=== PATIENT | female | born 1970 | race Caucasian/White ===

== ENCOUNTER 2020-02-18 16:36 | Outpatient (REF) | payer MEDICAID, SELFPAY | END 2020-02-18 16:37 | disposition home or self-care (01) | LOC: HO.LAB 16:36 | PROVIDERS: PCP Internal Medicine; Visit Provider Internal Medicine | DX: Z20.828 Contact with and (suspected) exposure to other viral communicable diseases (principal) | CPT/HCPCS: C9803; U0003 ==

== ENCOUNTER 2020-03-17 06:02 | Emergency (ER) | payer MEDICAID, SELFPAY ==
[2020-03-17 06:39] VITALS: BP 144/72; PULSE 68; RESP 15; TEMP 36.6; O2SAT 98; BMI 29.8
[2020-03-17 06:56] LABS: Glucose Urine UA NEG (NEG); Leukocyte Esterase Urine 1+ (NEG); Nitrite Urine NEG (NEG); Specific Gravity - Urine <= 1.005 (1.005-1.025); Urine Blood 2+ (NEG); Urine Ketones NEG (NEG); Urine Protein NEG (NEG-TRACE)
[2020-03-17 06:57] LABS: Appearance Urine HAZY; Color Urine STRAW
--- NOTE | 2020-03-17 07:06 | ED_ITS ---
HPI - Back Pain/Injury General Chief Complaint: Back Pain/Injury Stated Complaint: back pain Time Seen by Provider: 03/17/20 06:24 Source: patient Mode of arrival: ambulatory Limitations: no limitations History of Present Illness HPI Narrative: This is a 50-year-old female who presents with onset of right lower back discomfort and radiation into her right lower extremity without numbness/tingling / weakness. In addition, patient denies any nausea, vomiting, fever, chills, urinary pain/ burning /frequency, or diarrhea. Related Data Previous Rx's Medication Instructions Recorded ciprofloxacin HCl [Cipro] 500 mg PO Q12H 7 Days #14 tab 03/17/20 Allergies Allergy/AdvReac Type Severity Reaction Status Date / Time No Known Allergies Allergy Verified 03/17/20 06:34 [No Known Allergies*] Review of Systems Review of Systems: Pertinent positives and negatives as stated in HPI and 10 point review of systems is otherwise negative. PMFSH Past Medical History Source: nursing notes reviewed Medical History Anemia Hypothyroid Social History Social History Alcohol intake: never Smoking Status: Light tobacco smoker Use of substances other than those prescribed or required for medical reasons: No Advance Directives: No Physical Exam Vital Signs: Vital Signs: Last Vital Signs Temp 98 F 03/17/20 06:39 Pulse 68 03/17/20 06:39 Resp 15 03/17/20 06:39 BP 144/72 H 03/17/20 06:39 Pulse Ox 98 03/17/20 06:39 Body Mass Index 29.8 VITAL SIGNS: Reviewed. GENERAL: Well developed, well nourished, in no acute distress. HEAD: Normocephalic/atraumatic, EYES: PERRLA, EOMI intact without pain, no nystagmus/pallor/icterus noted EARS: Ext canals without abnormality, TMs non-bulging and non-erythematous NOSE: Nares patent bilateral OROPHARYNX: no oral lesions noted, posterior pharynx clear and non-erythematous without noted tonsillar enlargement/erythema/exudates NECK: Supple, no adenopathy LUNGS: Normal breath sounds. No adventitious sounds or accessory muscle use. SpO2<98> CARDIOVASCULAR: Regular rate and rhythm without noted murmurs, no JVD or lower extremity edema. ABDOMEN: Soft, non-tender, non-distended with bowel sounds. No rigidity. No guarding. No palpable masses or hernias noted MUSCULOSKELETAL: No tenderness, deformities, or effusions noted on gross inspection. EXTREMITIES: No cyanosis, clubbing or edema. SKIN: Inspection of the skin reveals no rashes, ulcerations, jaundice, pallor, or petechiae. NEUROLOGIC: Alert and oriented x 4. Strength and sensation to light touch were grossly intact x 4. Course Course Course Narrative: This is a 50-year-old female with history and clinical presentation most consistent with likely back strain or UTI. On review of urinalysis patient has a UTI and will receive initial antibiotics here and then be discharged to home with remaining course. MDM - Back Pain/Injury Lab Data Labs: Lab Results 03/17/20 Range/Units 06:48 Urine Color STRAW Urine Appearance HAZY Urine pH 6.0 (5.0-8.0) Ur Specific [place] <= 1.005 (1.005-1.025) Urine Protein NEG (NEG-TRACE) MG/DL Urine Glucose (UA) NEG (NEG) MG/DL Urine Ketones NEG (NEG) MG/DL Urine Blood 2+ H (NEG) Urine Nitrite NEG (NEG) Ur Leukocyte Esterase 1+ H (NEG) Discharge Plan Discharge Clinical Impression: UTI (urinary tract infection) Qualifiers: Urinary tract infection type: acute cystitis Hematuria presence: with hematuria Qualified Code(s): N30.01 - Acute cystitis with hematuria Patient Disposition: Home, Self-Care Instructions: Urinary Tract Infection in Women (ED) Additional Instructions: 1. Tylenol 1000 mg, orally, every 6 hours as needed for pain control. Do not exceed 4000 mg within 24 hours. 2. Ibuprofen 400 mg, orally with milk or food, every 6 hours as needed for pain control. 3. lidocaine patch, these are available [id number] at every [facility], apply to area of maximal tenderness as directed on the outside packaging. 4. increase fluid hydration especially with water. The patient and/or family acknowledge understanding of results (as applicable), diagnosis, treatment plan, need for follow up, and symptoms that should prompt a return to the emergency room. Prescriptions: New ciprofloxacin HCl [Cipro] 500 mg tablet 500 mg PO Q12H 7 Days Qty: 14 RF: 0 Referrals: Chrissie Khan MD [Primary Care Provider] - 2 days ( re-evaluation for UTI) Print Language: Luxembourger
[2020-03-17 07:07] LABS: RBC Urine 50-75 /HPF (0); Squamous Epithelial Cell Urine 1+ /LPF
[2020-03-17] MEDS: Lidocaine 4 % Patch ADH..PATCH 1 PATCH TRANSDERMA (07:10)
[2020-03-17] MEDS: Ketorolac Tromethamine 15 MG/ML VIAL IM (07:11)
[2020-03-17] MEDS: Acetaminophen 325 MG TABLET 975 MG PO (07:11)
== END 2020-03-17 07:35 | disposition home or self-care (01) ==
PROVIDERS: Emergency Provider Student in an Organized Health Care Education/Training Program; PCP Internal Medicine
DX: N30.01 Acute cystitis with hematuria (principal); F17.210 Nicotine dependence, cigarettes, uncomplicated
CPT/HCPCS: 81001; 87086; 87088; 87186; 96372; 99283; 99284; J1885

== ENCOUNTER → 2021-10-05 16:06 | Outpatient (BNVA) | payer MEDICAID, SELFPAY | PROVIDERS: PCP Internal Medicine; Referring Provider Internal Medicine; Visit Provider Nurse Practitioner | DX: Z01.818 Encounter for other preprocedural examination (principal); Z80.0 Family history of malignant neoplasm of digestive organs | CPT/HCPCS: 99202 ==

== ENCOUNTER 2022-05-23 08:24 | Outpatient (REF) | payer MEDICAID, SELFPAY ==
--- NOTE | ~2022-05-23 | MM_ITS ---
EXAMINATION: MM SCREENING DIGITAL BREAST TOMOSYNTHESIS, BILATERAL CLINICAL INFORMATION: Screening. Asymptomatic. The lifetime risk of breast cancer based on the Tyrer-Cuzick Model is 15.5%. COMPARISON: Mammography: June 16, 2019 and studies dating back to January 27, 2016 TECHNIQUE: Digital breast tomosynthesis is performed in both the craniocaudal and mediolateral oblique views along with computer-aided detection (CAD). Synthesized 2D images are generated from the tomosynthesis. FINDINGS: There are scattered areas of fibroglandular density (ACR BI-RADS breast composition Category b). There are no significant masses, abnormal calcifications, or other abnormalities. MM/MM tomosynthesis screening BI IMPRESSION: No significant changes from prior exam. ASSESSMENT: BI-RADS 1: Negative RECOMMENDATION: Routine annual mammography screening. This patient's information was entered into a reminder system with a target due date for their next mammogram.
== END 2022-05-23 08:25 | disposition home or self-care (01) ==
LOC: HO.MAMMO 08:24
PROVIDERS: PCP Internal Medicine; Visit Provider Internal Medicine
DX: Z12.31 Encounter for screening mammogram for malignant neoplasm of breast (principal)
CPT/HCPCS: 77063; 77067

== ENCOUNTER 2022-06-11 11:25 | Outpatient (REF) | payer MEDICAID, SELFPAY ==
[2022-06-14 00:54] LABS: HPV mRNA E6/E7 rflx Not Detected (Not Detected)
== END 2022-06-11 11:26 | disposition home or self-care (01) ==
LOC: HO.LNP 11:25
PROVIDERS: PCP Internal Medicine; Visit Provider Obstetrics & Gynecology
DX: Z01.419 Encounter for gynecological examination (general) (routine) without abnormal findings (principal); Z11.51 Encounter for screening for human papillomavirus (HPV); N93.9 Abnormal uterine and vaginal bleeding, unspecified
CPT/HCPCS: 0353U; 83001; 83002; 84443; 84702; 85027; 87624; 88142; 99202

== ENCOUNTER 2022-06-11 12:02 | Outpatient (REF) | payer MEDICAID, SELFPAY ==
[2022-06-11 12:54] LABS: Hematocrit 35.2 % (37.0-47.0); Hemoglobin 10.7 g/dl (12.0-16.0); Mean Corpuscular HGB Conc 30.4 g/dl (31.0-35.0); Mean Corpuscular Hemoglobin 22.2 pg (27.0-33.0); Mean Corpuscular Volume 72.9 fL (80.0-98.0); Mean Platelet Volume 10.4 fL (9.4-12.3); Platelet Count 305 X10*3/uL (160-400); Red Blood Count 4.83 X10*6/uL (4.20-5.50); Red Cell Distribution Width 15.9 % (11.0-16.0); White Blood Count 6.6 X10*3/uL (4.8-10.8)
[2022-06-11 13:38] LABS: HCG Quantitative 3 mIU/mL; TSH reflex Free T4 3.09 uIU/mL (0.32-4.0)
[2022-06-11 14:57] LABS: CT PCR NOT DETECTED (Not Detect.); NG PCR NOT DETECTED (Not Detect.)
[2022-06-12 17:28] LABS: Follicle Stimulating Hormone 77.2 mIU/mL; Lutenizing Hormone 41.3 mIU/mL
== END 2022-06-11 12:03 | disposition home or self-care (01) ==
LOC: HO.LAB 12:02
PROVIDERS: PCP Internal Medicine; Visit Provider Obstetrics & Gynecology
DX: Z11.3 Encounter for screening for infections with a predominantly sexual mode of transmission (principal); N93.9 Abnormal uterine and vaginal bleeding, unspecified
CPT/HCPCS: 0353U; 83001; 83002; 84443; 84702; 85027

== ENCOUNTER 2022-06-19 11:44 | Outpatient (REF) | payer MEDICAID, SELFPAY ==
[2022-06-19 13:58] LABS: CT PCR NOT DETECTED (Not Detect.); NG PCR NOT DETECTED (Not Detect.)
== END 2022-06-19 11:45 | disposition home or self-care (01) ==
LOC: HO.LAB 11:44
PROVIDERS: PCP Internal Medicine; Visit Provider Obstetrics & Gynecology
DX: Z01.419 Encounter for gynecological examination (general) (routine) without abnormal findings (principal)
CPT/HCPCS: 0353U

== ENCOUNTER 2022-07-02 11:04 | Outpatient (REF) | payer MEDICAID, SELFPAY ==
--- NOTE | ~2022-07-02 | US_ITS ---
EXAMINATION: US PELVIS CLINICAL INFORMATION: Abnormal uterine and vaginal bleeding. COMPARISON: None available. TECHNIQUE: Ultrasound of the pelvis is performed using both transabdominal and transvaginal transducers along with Doppler. Transvaginal imaging is performed due to inadequate visualization transabdominally. FINDINGS: Uterus: The uterus is anteverted and measures 10.4 x 4.8 x 5.6 cm. For a volume of 146 mL. The double wall endometrial thickness is 0.7 mm. Nabothian cysts are present in the cervix. Three (3) uterine fibroids are present which have increased in size since the prior study consisting of: * 2.3 x 2.2 x 2.9 cm (previous 1.5 x 1.4 x 0.9 cm) at the fundus on the right. * 1.5 x 1.3 x 1.5 cm (previously 1.3 x 1.2 x 1.0 cm) at the fundus on the right. * 0.5 x 0.6 x 0.5 cm in the mid uterine body not seen previously. Adnexa: Both ovaries are visualized. There is normal color flow to the adnexa. There is no ovarian torsion. There is a small amount of free pelvic fluid noted in the cul-de-sac. Right ovary measures 2.6 x 1.3 x 1.7 cm for a volume of 3.0 mL. Left ovary measures 2.5 x 1.6 x 2.3 cm for a volume of 4.8 mL. US/US pelvic and transvaginal IMPRESSION: Uterine fibroids have increased in size since the prior study.
== END 2022-07-02 11:05 | disposition home or self-care (01) ==
LOC: HO.US 11:04
PROVIDERS: PCP Internal Medicine; Visit Provider Obstetrics & Gynecology
DX: N93.9 Abnormal uterine and vaginal bleeding, unspecified (principal)
CPT/HCPCS: 76830; 76856

== ENCOUNTER 2022-07-23 09:05 | Day surgery (SDC) | payer MEDICAID, SELFPAY ==
[2022-07-19 13:38] VITALS: BMI 31.4
--- NOTE | 2022-07-23 10:11 | P.HPSUR_ITS ---
Pre-Procedural Eval Section A Date of Service: 07/23/22 The patient is an INPATIENT: No The History & Physical has been completed within 30 days and I have reviewed it.: No Section B Chief Complaint: Colon cancer screening, family history of colon ca Relevant Family History (Specify if Yes): Yes Relevant Social History: None Present Medications: see Short Stay Collaborative assessment Medical History: Significant History (Anemia Hypothyroid Pre-hypertension) History of Previous Operations: Relevant previous surgery/procedure and date(s) (Appendectomy) Allergies: Allergies Allergy/AdvReac Type Severity Reaction Status Date / Time No Known Allergies Allergy Verified 06/11/22 11:37 [No Known Allergies*] Review of Systems Sugical H&P ROS: Negative: Constitution, Cardiovascular, Respiratory and [place] rointestinal Exam Surgical H&P Exam: Normal: Heart, Normal: Lungs, Normal: Extremities and Normal: Abdomen Plan Diagnosis/Plan: Unchanged I have reviewed the history and physical and performed a pertinent physical examination on my patient. No changes have occurred unless specified. Time Spent With Patient Time: Total time managing care of this patient today ____ minutes.
[2022-07-23 10:14] VITALS: BMI 30.7
[2022-07-23 10:29] VITALS: BP 148/68; PULSE 66; RESP 16; TEMP 36.3; O2SAT 100
--- NOTE | 2022-07-23 10:33 | HO.ANESPROP2 ---
[facility] Active Problems Active Problems: All Active Problems (Updated 07/23/22 @ 10:13 by Gail Sanchez RN) Menorrhagia (Acute) Chronic low back pain (Acute) Hearing loss (Acute) Eczema (Acute) Insomnia (Acute) Impaired glucose tolerance (Acute) Colon cancer screening (Acute) Family history of colon cancer (Acute) Abnormal uterine bleeding (Acute) Past Medical History Medical History (Updated 07/23/22 @ 10:13 by Gail Sanchez RN) Anemia Appendicitis with abscess Hypothyroid Pre-hypertension Family History Family History Mother Ovarian cancer Diabetes HTN (hypertension) Father Colon cancer Paternal Uncle Colon cancer Paternal Aunt Breast cancer Paternal Aunt Breast cancer Paternal Aunt Breast cancer Family history of problems with anesthesia: No Surgical History History of Problems with Anesthesia: No Social History Social History Alcohol intake: never Patient Tobacco Use Status: Never used Tobacco Use of substances other than those prescribed or required for medical reasons: No Are you DNR?: No Advance Directives: No Advance Directives Information Provided: Yes Meds Allergies Allergy/AdvReac Type Severity Reaction Status Date / Time No Known Allergies Allergy Verified 06/11/22 11:37 [No Known Allergies*] Active Medications: Current Medications Lactated Ringer's (Lr) 1,000 mls @ 50 mls/hr IVCONT .Q20H [facility] Home Medications Medication Instructions Recorded Confirmed Last Taken Type ammonium lactate 12 % topical cream appl topical DAILY PRN 10/05/21 Unknown History ascorbic acid (vitamin C) 500 mg 500 mg PO BID 10/05/21 Unknown History tablet (Vitamin C) clotrimazole 1 % topical cream appl topical 10/05/21 Unknown History diphenhydramine HCl 25 mg capsule 25 - 50 mg PO BEDTIME PRN 10/05/21 Unknown History (Banophen) docusate sodium 100 mg capsule 100 mg PO BID PRN 10/05/21 Unknown History ferrous sulfate 325 mg (65 mg 325 mg PO BID 10/05/21 Unknown History iron) tablet,delayed release hydrochlorothiazide 12.5 mg tablet 12.5 mg PO DAILY 10/05/21 Unknown History ibuprofen 400 mg tablet 400 - 800 mg PO Q8-12H PRN pain 10/05/21 Unknown History levothyroxine 25 mcg tablet 25 mcg PO DAILY 10/05/21 07/23/22 07/23/22 History lidocaine 5 % topical patch 1 patch topical DAILY 10/05/21 Unknown History Exam Exam Date and Time: July 23, 2022 1033 Height,Weight and Vital Signs: Height 5 ft 6 in Weight 86.183 kg Last Vital Signs Temp 97.3 F 07/23/22 10:29 Pulse 66 07/23/22 10:29 Resp 16 07/23/22 10:29 BP 148/68 H 07/23/22 10:29 Pulse Ox 100 07/23/22 10:29 O2 Del Method Room Air 07/23/22 10:29 Airway Mallampati Class: II TM Dist: >3cm Neck ROM: Full Heart: rrr Lungs: cta Assessment and Plan Assessment Anesthesia Assessment: Anesthesia Plan Discussed and Chart Reviewed Final Anesthetic Review Family History of Problems with Anesthesia: No History of Problems with Anesthesia: No NPO: Yes ASA Class: II Final Preanesthetic Review: No Changes in Pt Med Stat, Meds/Allgs Chart Reviewed and Consent Obtained/Reviewed Patient Risk: Intermediate Procedure Risk: Intermediate Anesthetic Plan Anesthetic Plan: MAC: Disposition: Standard PACU
--- NOTE | 2022-07-23 10:34 | W.PM.OPN ---
Operative Note Operative Note Date of Service: 07/23/22 Narrative: COLONOSCOPY TILL CECUM WITH SNARE POLYPECTOMY Pre-op diagnosis: Colon cancer screening Post-op diagnosis:? Colon polyps, diverticulosis Endoscopist:? Janice Lee MD Anesthesia:?MAC Consent: Indications for the procedure and potential complications of bleeding, perforation, reaction to medications and missed diagnosis were discussed with the patient and informed consent was obtained. Instrument: Olympus PCF H 190 L variable stiffness pediatric colonoscope Monitoring: Vital signs and clinical assessment, intermittent blood pressure monitoring, continuous EKG monitoring, Pulse oximetry and Carbon Dioxide monitoring were done throughout the procedure. Please see anesthesia flowsheet. Colon withdrawl time was 16 minutes. Procedure: The patient was placed in the left lateral decubitis position and pre-procedure medications were administered. After a digital rectal examination of the ano-rectum, the video colonoscope was inserted into the rectum and advanced through the colon to the cecum. The colonoscope was slowly withdrawn in a retrograde panoramic fashion and the colon mucosa was carefully examined including a retroflexed view of the rectum. Findings and interventions are described below. Procedure Difficulty: Without difficulty Findings: Terminal Ileum: Not evaluated Cecum: Normal Ascending Colon: Normal Transverse Colon: Normal Descending Colon: Moderate diverticulosis Sigmoid Colon: A 15 to 18 mm sessile polyp at 30 cm - removed with a hot snare. Moderate diverticulosis Rectum: A 10-12 mm sessile polyp - removed with a hot snare Ano-rectum: Normal Colon preparation: Excellent Impression and Post Procedure Diagnosis: Colonoscopy Findings: Two medium-sized polyps removed Moderate diverticulosis seen in the left colon Plan: Await pathology results Patient has an appointment on 08/08/22 in the GI Clinic with Apryl Greene NP. Repeat Colonoscopy interval based on path results - in 3-5 years if polyps are adenomatous and 10 years if polyps are hyperplastic. Above findings were reviewed with the patient and colon polyps and diverticulosis handouts were given in the discharge area
[2022-07-23] MEDS: Lactated Ringers 1,000 ML 50 ML IVCONT ×2 (10:37→10:38)
[2022-07-23 10:58] LABS: UPreg QC Valid YES; Urine Pregnancy NEGATIVE (NEGATIVE)
[2022-07-23 11:33] VITALS: BP 109/55; PULSE 61; RESP 16; TEMP 36.1; O2SAT 98
[2022-07-23 11:48] VITALS: BP 123/58; PULSE 60; RESP 16; TEMP 36.1; O2SAT 100
== END 2022-07-23 12:51 | disposition home or self-care (01) ==
PROVIDERS: Anesthesiology; PCP Internal Medicine; Visit Provider Internal Medicine Gastroenterology
PROC: 0DJD8ZZ Inspection of Lower Intestinal Tract, Via Natural or Artificial Opening Endoscopic (ICD-10-PCS; CPT 45378; principal; 2022-07-23 10:20)
DX: Z12.11 Encounter for screening for malignant neoplasm of colon (principal); D12.5 Benign neoplasm of sigmoid colon; D12.8 Benign neoplasm of rectum; K57.30 Diverticulosis of large intestine without perforation or abscess without bleeding; Z80.0 Family history of malignant neoplasm of digestive organs; D50.0 Iron deficiency anemia secondary to blood loss (chronic)
CPT/HCPCS: 45385; 81025; 88305

== ENCOUNTER 2022-07-25 09:55 | Outpatient (REF) | payer MEDICAID, SELFPAY | END 2022-07-25 09:56 | disposition home or self-care (01) | LOC: HO.LNP 09:55 | PROVIDERS: Visit Provider Obstetrics & Gynecology | DX: N93.9 Abnormal uterine and vaginal bleeding, unspecified (principal); Z32.02 Encounter for pregnancy test, result negative | CPT/HCPCS: 58100; 81025; 88305 ==

== ENCOUNTER → 2022-08-08 09:05 | Outpatient (BNVA) | payer MEDICAID, SELFPAY | PROVIDERS: Visit Provider Nurse Practitioner | DX: D12.6 Benign neoplasm of colon, unspecified (principal); Z80.0 Family history of malignant neoplasm of digestive organs | CPT/HCPCS: 99212 ==

== ENCOUNTER → 2022-08-22 11:50 | Outpatient (BNVA) | payer MEDICAID, SELFPAY | PROVIDERS: PCP Internal Medicine; Visit Provider Obstetrics & Gynecology | DX: N93.9 Abnormal uterine and vaginal bleeding, unspecified (principal); D25.9 Leiomyoma of uterus, unspecified | CPT/HCPCS: 99212 ==

== ENCOUNTER 2022-12-18 07:41 | Outpatient (AMB) | payer MEDICAID, SELFPAY ==
[2022-12-18 07:42] VITALS: BP 122/70; BMI 31.5
--- NOTE | 2022-12-18 07:42 | MHC.OFFVIS ---
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 The patient has been taking Provera cyclicly 10 mg p.o. q.d. day 15-24, her menstrual cycles are regular and light, she is requesting a refill [facility] Medical History Anemia Appendicitis with abscess Hypothyroid Pre-hypertension Family History Mother Ovarian cancer Diabetes HTN (hypertension) Father Colon cancer Paternal Uncle Colon cancer Paternal Aunt Breast cancer Paternal Aunt Breast cancer Paternal Aunt Breast cancer Social History Alcohol intake: never Patient Tobacco Use Status: Never used Tobacco Review of Systems Const All systems reviewed & are unremarkable except as noted in HPI and below Reports as per HPI and Reports no additional complaints GI Reports no additional complaints Reports no additional complaints Physical Exam Vital Signs: Last Vital Signs BP 122/70 12/18/22 07:42 BMI result Body Mass Index 31.5 Assessment & Plan Assessment & Plan (1) Abnormal uterine bleeding: Code(s): N93.9 - Abnormal uterine and vaginal bleeding, unspecified Plan: Will send a refill prescription for Provera 10 mg p.o. q.d. day 15-24 cyclically, instructions given the patient to call in case of abnormal bleeding, pelvic pain and to schedule a follow-up appointment in 6 months. All questions answered, the patient verbalized understanding and agreed with the plan. Medications: Refilled medroxyprogesterone (Provera) start Provera 1 tablet daily from day 15-24 cyclically every months, day 1 being 1st day of menses 10 mg PO DAILY 30 tabs 3RF 10 days Coding Level of Care Code Est Pt Level 3 (73321) Diagnoses Abnormal uterine bleeding N93.9
== END 2022-12-18 07:50 | disposition home or self-care (01) ==
LOC: HO.HWS 07:41
PROVIDERS: PCP Internal Medicine; Visit Provider Obstetrics & Gynecology
DX: N93.9 Abnormal uterine and vaginal bleeding, unspecified (principal)
CPT/HCPCS: 99213

== ENCOUNTER → 2022-12-18 07:41 | Outpatient (BNVA) | payer MEDICAID, SELFPAY | PROVIDERS: PCP Internal Medicine; Visit Provider Obstetrics & Gynecology | DX: N93.9 Abnormal uterine and vaginal bleeding, unspecified (principal) | CPT/HCPCS: 99212 ==

== ENCOUNTER 2023-05-07 10:37 | Outpatient (REF) | payer MEDICAID, SELFPAY ==
[2023-05-07 11:35] LABS: MANUAL DIFF FLAG NO
[2023-05-07 11:53] LABS: Basophils Percent Auto 0.5 % (0-2); Eosinophils Absolute Auto 0.3 X10*3/uL (0.0-0.4); Eosinophils Percent Auto 5.2 % (0-4); Hemoglobin 13.2 g/dl (12.0-16.0); Imm Gran Abs Auto 0.01 X10*3/uL (0.00-0.03); Imm Gran Pct Auto 0.2 % (0.0-0.4); Lymphocytes Absolute Auto 1.7 X10*3/uL (1.2-4.9); Lymphocytes Percent Auto 27.2 % (20-40); Mean Corpuscular HGB Conc 32.2 g/dl (31.0-35.0); Mean Corpuscular Hemoglobin 25.6 pg (27.0-33.0); Mean Corpuscular Volume 79.6 fL (80.0-98.0); Mean Platelet Volume 10.6 fL (9.4-12.3); Monocytes Absolute Auto 0.5 X10*3/uL (0.1-1.2); Monocytes Percent Auto 8.3 % (2-11); Neutrophils Absolute Auto 3.8 x10*3/uL (2.0-8.3); Neutrophils Percent Auto 58.6 % (45-73); Platelet Count 317 X10*3/uL (160-400); Red Blood Count 5.15 X10*6/uL (4.20-5.50); Red Cell Distribution Width 14.3 % (11.0-16.0); White Blood Count 6.4 X10*3/uL (4.8-10.8)
[2023-05-07 13:32] LABS: Anion Gap 12 (12-20); Blood Urea Nitrogen 14 mg/dL (9-16); Calcium 9.6 mg/dL (8.4-10.2); Carbon Dioxide 28 mmol/L (22-29); Chloride 107 mmol/L (96-108); Cholesterol 159 mg/dL (<200); Estimated Glomerular Filt Rate > 60; Ferritin 33 ng/mL (10-250); Glucose Random 113 mg/dL (60-115); HDL Cholesterol 43 mg/dL (>40); LDL Cholesterol Calculated 102 mg/dL (<100); Potassium 3.9 mmol/L (3.3-5.1); Sodium 143 mmol/L (135-145); TSH reflex Free T4 2.64 uIU/mL (0.32-4.0); Triglycerides 74 mg/dL (<150); Vitamin D 25-OH Total 24.9 ng/mL (>30)
[2023-05-07 14:59] LABS: Reflex LDLD? No
== END 2023-05-07 10:38 | disposition home or self-care (01) ==
LOC: HO.HHCL 10:37
PROVIDERS: Visit Provider Internal Medicine
DX: N92.0 Excessive and frequent menstruation with regular cycle (principal); D50.0 Iron deficiency anemia secondary to blood loss (chronic)
CPT/HCPCS: 36415; 80048; 80061; 82306; 82728; 84443; 85025

== ENCOUNTER → 2023-05-31 08:00 | Outpatient (BNV) | payer MEDICAID, SELFPAY | PROVIDERS: PCP Internal Medicine; Visit Provider Radiology Diagnostic Radiology | DX: Z12.31 Encounter for screening mammogram for malignant neoplasm of breast (principal) | CPT/HCPCS: 77063; 77067 ==

== ENCOUNTER 2023-05-31 08:03 | Outpatient (REF) | payer MEDICAID, SELFPAY | END 2023-05-31 08:04 | disposition home or self-care (01) | LOC: HO.MAMMO 08:03 | PROVIDERS: PCP Internal Medicine; Visit Provider Internal Medicine | DX: Z12.31 Encounter for screening mammogram for malignant neoplasm of breast (principal) | CPT/HCPCS: 77063; 77067 ==

== ENCOUNTER 2023-09-17 11:05 | Outpatient (AMB) | payer MEDICAID, SELFPAY ==
--- NOTE | 2023-09-17 11:11 | MHC.OFFVIS ---
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 Complaining of right sided pelvic pain started yesterday on an off, no associated vaginal bleeding discharge, no fever or chills, no nausea or vomiting. On Provera 10 mg p.o. q.d. day 15-24 cyclicly, she is having irregular menstrual cycles Last Pap/HPV was negative in 06/07 Last Mammogram was BI-RADS 1 in 06/08 Last Colonoscopy was done in 08/05, the recommendation was to repeat in 5 years [facility] Medical History Appendicitis with abscess Pre-hypertension Anemia Hypothyroid Family History Mother Ovarian cancer Diabetes HTN (hypertension) Father Colon cancer Paternal Uncle Colon cancer Paternal Aunt Breast cancer Paternal Aunt Breast cancer Paternal Aunt Breast cancer Social History Household Members: Significant Other Housing: House Alcohol intake: current Alcohol intake frequency: holidays/special occasions only Patient Tobacco Use Status: Never used Tobacco Current occupational status: employed 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 Sexually active: Yes Sexual orientation: Straight/Heterosexual Gender identity: Female Female Reproductive History Menstrual Menopause type: natural Total pregnancies: 3 Full term: 2 Number of Living Children: 2 Ab spontaneous: 1 Date of last pap smear: 06/11/22 Date of Mammogram: 05/31/23 Review of Systems Const All systems reviewed & are unremarkable except as noted in HPI and below Card Reports as per HPI Resp Reports as per HPI GI Reports as per HPI and Reports no additional complaints Reports as per HPI Physical Exam Vital Signs: Last Vital Signs BP 126/74 09/17/23 11:12 BMI result Body Mass Index 31.3 Const General: cooperative, healthy appearing and comfortable Chest Chest palpation & inspection: normal inspection of the chest and normal palpation of entire chest wall Breast/axilla inspection: normal inspection of the breasts and normal inspection of the axillae Breast/axilla palpation: normal palpation of the breasts, normal palpation of the axillae and no axillary lymphadenopathy Resp Effort & Inspection: normal respiratory effort Auscultation: clear to auscultation bilaterally Percussion: percussion normal Cardio Palpation: normal PMI Rate: regular rate Rhythm: regular rhythm Heart sounds: no murmurs and no rubs Peripheral pulses: Peripheral pulses 2+ throughout GI Inspection: Yes normal to inspection Palpation (GI): Soft to palpation, nontender, no guarding, not rigid and No hepatosplenomegaly present Percussion: Yes normal to percussion Auscultation: normal bowel sounds Rectal Exam - Female: deferred General: Yes bladder normal to palpation External Female Exam: No lesion Speculum Exam - Vagina: normal appearance of the vagina, normal palpation, normal vaginal discharge and not erythematous Speculum Exam - Cervix: normal appearance of the cervix and normal palpation Bimanual exam- vagina & uterus: normal bimanual exam, normal palpation, uterine size normal, bladder normal to palpation, consistency normal and normal palpation Bimanual Exam- Adnexa, other: normal adnexae, no masses and no tenderness Assessment & Plan Assessment & Plan (1) Well woman exam: Code(s): Z01.419 - Encounter for gynecological examination (general) (routine) without abnormal findings Category: Medical Plan: Co testing not indicated this year. Counseled the patient about the recommended dietary allowance of 1200 mg of Calcium & 600 IU of vitamin D. Instructions given the patient to schedule next screening Mammogram in 06/09. The patient was instructed to perform monthly self-breast exams and schedule annual exam in a year. Prescription for Provera 10 mg p.o. q.d. day 15-24 cyclically was refilled, instructions given the patient to discontinue it whenever she stops having her menstrual cycle. All questions answered and the patient verbalized understanding. (2) Pelvic pain: Code(s): R10.2 - Pelvic and perineal pain Category: Medical Plan: Urine test done in the office was negative. GC and chlamydia taken and pelvic ultrasound ordered. Discussed with the patient the differential diagnosis of pelvic pain including but not limited to adnexal, uterine masses, pelvic infections (PID), GI the (Irritable bowel syndrome, diverticulitis, others), musculoskeletal, myofascial pain abdominal wall , adhesions, endometriosis, psychological and others causes. Will check results and treat accordingly. All questions answered, the patient verbalized understanding. Instructed the patient to schedule follow-up appointment in 2 weeks (3) Microscopic hematuria: Code(s): R31.29 - Other microscopic hematuria Category: Medical Plan: Urine dip showed microscopic hematuria, urine culture sent. Will repeat urine dip in 2 weeks. Discussed with the patient the possible causes of microscopic hematuria including but not limited to: interstitial cystitis, polyps, stones, masses, urethral inflammatory processes and others. If Urine Culture is negative and repeat urine dip in 2 weeks shows persistent microscopic hematuria, will proceed with CT abdomen/pelvis and urology referral. Instructions given the patient to schedule a 2 week urine dip follow-up appointment. All questions answered and the patient verbalized understanding. Orders: Orders US pelvic and transvaginal Today R10.2 - Pelvic and perineal pain Medications: Refilled medroxyprogesterone (Provera) start Provera 1 tablet daily from day 15-24 cyclically every months, day 1 being 1st day of menses 10 mg PO DAILY 10 days 30 tabs 3RF Coding Level of Care Code Est Pt Prev Care 40-64y(39121) Diagnoses Well woman exam Z01.419 Pelvic pain R10.2 Microscopic hematuria R31.29
[2023-09-17 11:12] VITALS: BP 126/74; BMI 31.3
== END 2023-09-17 12:03 | disposition home or self-care (01) ==
LOC: HO.HWS 11:05
PROVIDERS: PCP Internal Medicine; Referring Provider Internal Medicine; Visit Provider Obstetrics & Gynecology
DX: Z01.419 Encounter for gynecological examination (general) (routine) without abnormal findings (principal); R10.2 Pelvic and perineal pain; R31.29 Other microscopic hematuria; Z32.02 Encounter for pregnancy test, result negative
CPT/HCPCS: 99396

== ENCOUNTER 2023-09-17 11:05 | Outpatient (REF) | payer MEDICAID, SELFPAY ==
[2023-09-17 15:57] LABS: CT PCR NOT DETECTED (Not Detect.); NG PCR NOT DETECTED (Not Detect.)
== END 2023-09-17 11:06 | disposition home or self-care (01) ==
LOC: HO.LNP 11:05
PROVIDERS: PCP Internal Medicine; Visit Provider Obstetrics & Gynecology
DX: Z01.419 Encounter for gynecological examination (general) (routine) without abnormal findings (principal); R31.29 Other microscopic hematuria; R10.2 Pelvic and perineal pain; Z79.899 Other long term (current) drug therapy
CPT/HCPCS: 0353U; 81002; 81025; 87086; 99396

== ENCOUNTER 2023-10-01 11:03 | Outpatient (REF) | payer MEDICAID, SELFPAY ==
--- NOTE | ~2023-10-01 | US_ITS ---
EXAMINATION: US PELVIS CLINICAL INFORMATION: Pelvic and perineal pain. COMPARISON: Pelvic ultrasound 07/02/2022. TECHNIQUE: Ultrasound of the pelvis is performed using both transabdominal and transvaginal transducers along with color Doppler. Transvaginal imaging is performed due to inadequate visualization transabdominally. FINDINGS: Uterus: The uterus is anteverted and measures 9.6 x 5.4 x 5.4 cm. There are 2 visible uterine fibroids measuring up to 2.2 cm, stable to slightly decreased in size from prior. The endometrial stripe measures 6 mm. Adnexa: The right ovary measures 3.0 x 1.6 x 1.0 cm. The left ovary measures 3.0 x 1.1 x 1.1 cm. The ovaries appear normal. US/US pelvic and transvaginal IMPRESSION: Stable to slightly decreased uterine fibroids.
== END 2023-10-01 11:04 | disposition home or self-care (01) ==
LOC: HO.US 11:03
PROVIDERS: PCP Internal Medicine; Visit Provider Obstetrics & Gynecology
DX: R10.2 Pelvic and perineal pain (principal)
CPT/HCPCS: 76830; 76856

== ENCOUNTER 2023-11-21 15:07 | Outpatient (REF) | payer MEDICAID, SELFPAY | END 2023-11-21 15:08 | disposition home or self-care (01) | LOC: HO.LNP 15:07 | PROVIDERS: PCP Internal Medicine; Visit Provider Obstetrics & Gynecology | DX: N93.9 Abnormal uterine and vaginal bleeding, unspecified (principal); D25.9 Leiomyoma of uterus, unspecified | CPT/HCPCS: 36415; 58100; 83001; 83002; 84146; 84443; 84702; 85027; 87491; 87591; 88305; 99212 ==

== ENCOUNTER 2023-11-21 15:07 | Outpatient (AMB) | payer MEDICAID, SELFPAY ==
--- NOTE | 2023-11-21 15:13 | MHC.OFFVIS ---
Vital Signs 11/21/23 15:14 Height 5 ft 6 in Weight 191 lb 12.835 oz BMI 31.0 Intake Visit Reasons: US follow up/urine dip/DO NOT RS Pit Furnace Melter Required: Yes Pit Furnace Melter Language: Metal Crafts Teacher Services: Pit Furnace Melter Present (in person) Pit Furnace Melter Name: Sarah SYED Information Interpreted: non-clinical & clinical Accompanied by: Self / Same As Patient Allergies No Known Allergies [No Known Allergies*] Allergy (Verified 11/21/23 15:15) Is last menstrual period known: Yes Last menstrual period: 10/21/23 HPI Comments Details: Presenting for ultrasound follow-up done in 10/06 showed the following: Uterus: The uterus is anteverted and measures 9.6 x 5.4 x 5.4 cm. There are 2 visible uterine fibroids measuring up to 2.2 cm, stable to slightly decreased in size from prior. The endometrial stripe measures 6 mm. Adnexa: The right ovary measures 3.0 x 1.6 x 1.0 cm. The left ovary measures 3.0 x 1.1 x 1.1 cm. The ovaries appear normal. The patient has been having irregular menstrual cycle on cyclic Provera 10 mg p.o. q.d. day 15- Last co testing was in 06/07 was negative last mammogram was BI-RADS 1 in 06/08 [facility] Medical History Appendicitis with abscess Pre-hypertension Anemia Hypothyroid Family History Mother Ovarian cancer Diabetes HTN (hypertension) Father Colon cancer Paternal Uncle Colon cancer Paternal Aunt Breast cancer Paternal Aunt Breast cancer Paternal Aunt Breast cancer Social History Household Members: Significant Other Housing: House Alcohol intake: current Alcohol intake frequency: holidays/special occasions only Patient Tobacco Use Status: Never used Tobacco Current occupational status: employed 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 Sexual orientation: Straight/Heterosexual Gender identity: Female Female Reproductive History Menstrual Date of last menstrual period: 10/21/23 Review of Systems Const All systems reviewed & are unremarkable except as noted in HPI and below Reports as per HPI and Reports no additional complaints GI Reports no additional complaints Reports no additional complaints Physical Exam Vital Signs: BMI result Body Mass Index 31.0 Office Procedures Endometrial Biopsy Details: The patient was counseled regarding the indication and benefits of endometrial sampling to rule out endometrial pathology including not limited to endometrial hyperplasia or endometrial cancer and others; The alternatives (Either do nothing vs. hysteroscopy D&C) & the risks were discussed with the patient including but not limited: pain, uterine perforation, bleeding, infection, possible injury to bladder, bowel, ureter, possible need for blood transfusion with all its possible risks. The patient verbalized understanding all questions answered and signed consent. Urine test done in the office was negative The patient was placed into the dorsal lithotomy position; a speculum was inserted in the vagina. Using aseptic technique for the procedure, the cervix was cleansed with Betadine. The anterior lip of the cervix was grasped with a single tooth tenaculum. The uterus was sounded to 7 cm with a 4 mm Pipelle was used. Tissues samples were obtained and placed in formalin, in a patient labeled container and sent to the pathology department. At the end of the procedure, there was minimal bleeding noted The patient tolerated the procedure well and was discharged in good condition with the following instructions: Nothing in the vagina until the bleeding stops. No sex until the bleeding stops, to call if any of the following occurs: fever (>100.4), flu-like symptoms, abdominal pain, heavy bleeding, four smelling vaginal discharge. The patient was instructed to schedule a Follow up appointment in 2 weeks to discuss pathology results of the biopsy and treatment options. This note was generated with a voice recognition program. Some errors may have been overlooked during the review of this note. Sometimes these errors may affect the content or meaning of a given sentence. 13432-[id number] Biopsy Assessment & Plan Assessment & Plan (1) Uterine myoma: Code(s): D25.9 - Leiomyoma of uterus, unspecified Category: Medical Plan: Discussed with the patient the findings on pelvic ultrasound & the risk of myosarcoma; discussed with the patient the options of treatment including expectant management versus hysterectomy; the pros and cons, risks benefits of each approach were discussed with the patient including the fact that in cases of myosarcoma, surgical treatment can lead to early diagnosis and positively affects the prognosis; after further discussion, the patient decided to proceed with expectant management. Will repeat pelvic ultrasound periodically. Instructions given to patient to call in case any of the following occurs: pressure symptoms, abnormal uterine bleeding, pelvic pain; and to schedule a 12 months pelvic ultrasound and a follow-up appointment . All questions answered, the patient verbalized understanding and agreed with the plan . (2) Abnormal uterine bleeding: Code(s): N93.9 - Abnormal uterine and vaginal bleeding, unspecified Category: Medical Plan: GC and chlamydia taken CBC, TSH, prolactin, HCG, FSH/LH ordered. Discussed with the patient the different causes of abnormal bleeding including thyroid disorders, uterine and ovarian pathology, endometrial hyperplasia, carcinoma and other potential causes. Discussed with the patient the work up including CBC (to r/o anemia), TSH, prolactin, pelvic Ultrasound, endometrial biopsy to r/o endometrial pathology. EMB done, see procedure note. All questions answered, the patient verbalized understanding Orders: Orders AMB Endometrial Biopsy Today N93.9 - Abnormal uterine and vaginal bleeding, unspecified Lutenizing Hormone Today N93.9 - Abnormal uterine and vaginal bleeding, unspecified Follicle Stimulating Hormone Today N93.9 - Abnormal uterine and vaginal bleeding, unspecified Complete Blood Count no Diff Today N93.9 - Abnormal uterine and vaginal bleeding, unspecified TSH reflex Free T4 Today N93.9 - Abnormal uterine and vaginal bleeding, unspecified HCG Quantitative Today N93.9 - Abnormal uterine and vaginal bleeding, unspecified Prolactin Today N93.9 - Abnormal uterine and vaginal bleeding, unspecified US pelvic and transvaginal 1 Year D25.9 - Leiomyoma of uterus, unspecified Coding Level of Care Code Est Pt Level 3 (25247) Procedure Only Diagnoses Uterine myoma D25.9 Abnormal uterine bleeding N93.9 CPT Codes Endometrial Biopsy - CPT: 13872-Zysirgjrygw Biopsy ([id number])
[2023-11-21 15:14] VITALS: BMI 31.0
== END 2023-11-21 15:37 | disposition home or self-care (01) ==
LOC: HO.HWS 15:07
PROVIDERS: PCP Internal Medicine; Referring Provider Internal Medicine; Visit Provider Obstetrics & Gynecology
DX: N93.9 Abnormal uterine and vaginal bleeding, unspecified (principal); D25.9 Leiomyoma of uterus, unspecified
CPT/HCPCS: 58100; 99213

== ENCOUNTER 2023-11-21 15:47 | Outpatient (REF) | payer MEDICAID, SELFPAY ==
[2023-11-21 17:17] LABS: Hematocrit 39.9 % (37.0-47.0); Hemoglobin 13.3 g/dl (12.0-16.0); Mean Corpuscular HGB Conc 33.3 g/dl (31.0-35.0); Mean Corpuscular Hemoglobin 27.5 pg (27.0-33.0); Mean Corpuscular Volume 82.4 fL (80.0-98.0); Mean Platelet Volume 10.8 fL (9.4-12.3); Platelet Count 280 X10*3/uL (160-400); Red Blood Count 4.84 X10*6/uL (4.20-5.50); Red Cell Distribution Width 13.1 % (11.0-16.0); White Blood Count 7.1 X10*3/uL (4.8-10.8)
[2023-11-21 17:55] LABS: HCG Quantitative 3 mIU/mL; TSH reflex Free T4 2.02 uIU/mL (0.32-4.0)
[2023-11-22 15:12] LABS: CT PCR NOT DETECTED (Not Detect.); NG PCR NOT DETECTED (Not Detect.)
[2023-11-23 00:59] LABS: Follicle Stimulating Hormone 73.9 mIU/mL; Lutenizing Hormone 36.3 mIU/mL; Prolactin 7.4 ng/mL
== END 2023-11-21 15:48 | disposition home or self-care (01) ==
LOC: HO.LAB 15:47
PROVIDERS: PCP Internal Medicine; Visit Provider Obstetrics & Gynecology
DX: N93.9 Abnormal uterine and vaginal bleeding, unspecified (principal); R10.2 Pelvic and perineal pain
CPT/HCPCS: 36415; 83001; 83002; 84146; 84443; 84702; 85027; 87491; 87591

== ENCOUNTER 2023-11-22 13:38 | Outpatient (REF) | payer MEDICAID, SELFPAY | END 2023-11-22 13:39 | disposition home or self-care (01) | LOC: HO.LNP 13:38 | PROVIDERS: Visit Provider Obstetrics & Gynecology | DX: Z13.89 Encounter for screening for other disorder (principal) ==

== ENCOUNTER 2023-11-28 07:40 | Outpatient (AMB) | payer MEDICAID, SELFPAY ==
--- NOTE | 2023-11-28 07:45 | MHC.OFFVIS ---
Vital Signs 11/28/23 07:46 Height 5 ft 6 in Weight 191 lb 12.835 oz BMI 31.0 Intake Visit Reasons: pre op Staff Command And Control Officer Required: Yes Staff Command And Control Officer Language: Yarn Mercerizer Operator Services: Staff Command And Control Officer Present (in person) Staff Command And Control Officer Name: Sarah SYED Information Interpreted: non-clinical & clinical Gate Person: Gate Person Present Accompanied by: Self / Same As Patient Allergies No Known Allergies [No Known Allergies*] Allergy (Verified 11/28/23 07:46) Is last menstrual period known: Yes Last menstrual period: 02/11/20 Post menopausal: Yes Patient : No Do you need a note to return to daycare/school/sports/work: Yes (for surgery on saturday) HPI Comments Details: The patient is presenting after endometrial biopsy. The patient has no complaints, no vaginal bleeding, no feverishness chills or abdominal pain. The endometrial biopsy pathology report showed the following: Superficial fragments of benign proliferative endometrium and fragments of benign endometrial polyp; no atypia or carcinoma. 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 Sexual orientation: Straight/Heterosexual Gender identity: Female Female Reproductive History Menstrual Date of last menstrual period: 02/11/20 Total pregnancies: 2 Full term: 2 Review of Systems Card Reports as per HPI and Reports no additional complaints Resp Reports as per HPI and Reports no additional complaints GI Reports as per HPI and Reports no additional complaints Reports as per HPI Physical Exam Vital Signs: BMI result Body Mass Index 31.0 Const General: cooperative, healthy appearing and comfortable Resp Effort & Inspection: normal respiratory effort Auscultation: clear to auscultation bilaterally Percussion: percussion normal Cardio Palpation: normal PMI Rate: regular rate Rhythm: regular rhythm Heart sounds: no murmurs and no rubs Peripheral pulses: Peripheral pulses 2+ throughout GI Inspection: Yes normal to inspection Palpation (GI): Soft to palpation, nontender, no guarding, not rigid and No hepatosplenomegaly present Percussion: Yes normal to percussion Auscultation: normal bowel sounds Rectal Exam - Female: deferred Assessment & Plan Assessment & Plan (1) Abnormal uterine bleeding: Comment: Endometrial polyp by EMB pathology Code(s): N93.9 - Abnormal uterine and vaginal bleeding, unspecified Category: Medical Plan: Discussed with the patient the results the endometrial biopsy pathology showing fragments of benign polyp, recommended hysteroscopy D&C possible polypectomy/myomectomy. Discussed with the patient the procedure , all benefits and risks including but not limited to inability to complete the procedure , insufficient endometrial tissue for a complete evaluation of the endometrial cavity , bleeding, infection, possible need for blood transfusion with all its risk ( HIV,syphilis, Hepatitis, anaphylaxis shock, others..), injury to bladder, rectum, possible need for laparoscopy/laparotomy or hysterectomy. The patient verbalized understanding and signed the consent. Instructions given the patient to stay NPO after midnight the day prior to the procedure and to take only the specific medication (s) discussed the morning of the surgical procedure and to schedule a 2 week postoperative appointment Coding Level of Care Code Est Pt Level 3 (49126) Diagnoses Abnormal uterine bleeding N93.9
[2023-11-28 07:46] VITALS: BMI 31.0
== END 2023-11-28 08:47 | disposition home or self-care (01) ==
PROVIDERS: PCP Internal Medicine; Visit Provider Obstetrics & Gynecology
DX: N93.9 Abnormal uterine and vaginal bleeding, unspecified (principal)
CPT/HCPCS: 99213

== ENCOUNTER → 2023-11-28 07:40 | Outpatient (BNVA) | payer MEDICAID, SELFPAY | PROVIDERS: PCP Internal Medicine; Visit Provider Obstetrics & Gynecology | DX: Z01.818 Encounter for other preprocedural examination (principal); N93.9 Abnormal uterine and vaginal bleeding, unspecified | CPT/HCPCS: 99212 ==

== ENCOUNTER 2023-12-13 09:41 | Day surgery (SDC) | payer MEDICAID, SELFPAY ==
[2023-12-11 08:50] VITALS: BMI 30.8
--- NOTE | 2023-12-11 13:07 | P.CONAN_ITS ---
Documented by User: Melani Gonzalez NP 12/11/23 13:08 HPI - Anesthesia Eval Consult details Narrative: 53yo F for D&C Hysteroscopy,possible myomectomy,possible polypectomy, PMFSH Active Problems Active Problems: All Active Problems Microscopic hematuria (Acute) Pelvic pain (Acute) Well woman exam (Acute) Uterine myoma (Acute) Tubular adenoma of colon (Acute) Menorrhagia (Acute) Chronic low back pain (Acute) Hearing loss (Acute) Eczema (Acute) Insomnia (Acute) Impaired glucose tolerance (Acute) Colon cancer screening (Acute) Family history of colon cancer (Acute) Abnormal uterine bleeding (Acute) Past Medical History Medical History Appendicitis with abscess Pre-hypertension Anemia Hypothyroid Family History Family History Mother Ovarian cancer Diabetes HTN (hypertension) Father Colon cancer Paternal Uncle Colon cancer Paternal Aunt Breast cancer Paternal Aunt Breast cancer Paternal Aunt Breast cancer Family history of problems with anesthesia: No Surgical History Surgical History Hx of colonoscopy History of Problems with Anesthesia: No Social History Social History Household Members: Significant Other Housing: House Alcohol intake: current Alcohol intake frequency: holidays/special occasions only Patient Tobacco Use Status: Never used Tobacco Use of substances other than those prescribed or required for medical reasons: No Are you DNR?: No Advance Directives: No Advance Directives Information Provided: Yes Recently lost weight without trying: No Patient : No Current occupational status: employed 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 Sexual orientation: Straight/Heterosexual Gender identity: Female Meds Allergies Allergy/AdvReac Type Severity Reaction Status Date / Time No Known Allergies Allergy Verified 12/13/23 11:05 [No Known Allergies*] Home Medications ?Medication ?Instructions ?Recorded ?Confirmed ?Last Taken ?Type ammonium lactate 12 % topical cream appl topical DAILY PRN 10/05/21 Unknown History ascorbic acid (vitamin C) 500 mg 500 mg PO BID 10/05/21 12/13/23 Unknown History tablet (Vitamin C) clotrimazole 1 % topical cream appl topical 10/05/21 Unknown History diphenhydramine HCl 25 mg capsule 25 - 50 mg PO BEDTIME PRN Insomnia 10/05/21 12/13/23 Unknown History (Banophen) ferrous sulfate 325 mg (65 mg 325 mg PO BID 10/05/21 12/13/23 Unknown History iron) tablet,delayed release ibuprofen 400 mg tablet 400 - 800 mg PO Q8-12H PRN pain 10/05/21 12/13/23 Unknown History levothyroxine 25 mcg tablet 25 mcg PO DAILY 10/05/21 12/13/23 07/23/22 History lidocaine 5 % topical patch 1 patch topical DAILY 10/05/21 Unknown History lisinopril 5 mg tablet 5 mg PO QAM 12/13/23 12/13/23 Unknown History Exam Height,Weight and Vital Signs: Height 5 ft 6 in Weight 86.636 kg Pertinent Lab Results Pertinent Lab Results: Laboratory Tests 11/21/23 15:55 WBC 7.1 Hgb 13.3 Hct 39.9 Plt Count 280 Assessment and Plan Assessment Anesthesia Assessment: Chart Reviewed Final Anesthetic Review Family History of Problems with Anesthesia: No History of Problems with Anesthesia: No Documented by User: Jessica Webster MD 12/13/23 11:31 PMFSH Past Medical History Medical History Appendicitis with abscess Pre-hypertension Anemia Hypothyroid Family History Family History Mother Ovarian cancer Diabetes HTN (hypertension) Father Colon cancer Paternal Uncle Colon cancer Paternal Aunt Breast cancer Paternal Aunt Breast cancer Paternal Aunt Breast cancer Surgical History Surgical History Hx of colonoscopy Social History Social History Household Members: Significant Other Housing: House Alcohol intake: current Alcohol intake frequency: holidays/special occasions on ly Patient Tobacco Use Status: Never used Tobacco Use of substances other than those prescribed or required for medical reasons: No Are you DNR?: No Advance Directives: No Advance Directives Information Provided: Yes Recently lost weight without trying: No Patient : No Current occupational status: employed 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 Sexual orientation: Straight/Heterosexual Gender identity: Female Meds Allergies Allergy/AdvReac Type Severity Reaction Status Date / Time No Known Allergies Allergy Verified 12/13/23 11:05 [No Known Allergies*] Home Medications ?Medication ?Instructions ?Recorded ?Confirmed ?Last Taken ?Type ammonium lactate 12 % topical cream appl topical DAILY PRN 10/05/21 Unknown History ascorbic acid (vitamin C) 500 mg 500 mg PO BID 10/05/21 12/13/23 Unknown History tablet (Vitamin C) clotrimazole 1 % topical cream appl topical 10/05/21 Unknown History diphenhydramine HCl 25 mg capsule 25 - 50 mg PO BEDTIME PRN Insomnia 10/05/21 12/13/23 Unknown History (Banophen) ferrous sulfate 325 mg (65 mg 325 mg PO BID 10/05/21 12/13/23 Unknown History iron) tablet,delayed release ibuprofen 400 mg tablet 400 - 800 mg PO Q8-12H PRN pain 10/05/21 12/13/23 Unknown History levothyroxine 25 mcg tablet 25 mcg PO DAILY 10/05/21 12/13/23 07/23/22 History lidocaine 5 % topical patch 1 patch topical DAILY 10/05/21 Unknown History lisinopril 5 mg tablet 5 mg PO QAM 12/13/23 12/13/23 Unknown History Exam Airway Mallampati Class: II TM Dist: >3cm Neck ROM: Full Loose/Missing/Broken Teeth: No Heart: RRR Lungs: CTA Assessment and Plan Assessment Anesthesia Assessment: Anesthesia Plan Discussed Final Anesthetic Review NPO: Yes ASA Class: II Final Preanesthetic Review: Meds/Allgs Chart Reviewed, Consent Obtained/Reviewed and Anes Risks/Benef Reviewed Patient Risk: Low Procedure Risk: Low Anesthetic Plan Anesthetic Plan: MAC: Disposition: Standard PACU
[2023-12-13] VITALS (7 sets, daily range): BP systolic 118–136; BP diastolic 59–66; PULSE 59–66; RESP 16–18; TEMP 36.3–36.6; O2SAT 92–98; BMI 30.7
[2023-12-13 11:05] LABS: UPreg QC Valid YES; Urine Pregnancy NEGATIVE (NEGATIVE)
--- NOTE | 2023-12-13 11:13 | MHC.SHP ---
Pre-Procedural Eval Section A - 24 Hr Update-Section A only Date of Service: 12/13/23 The patient is an INPATIENT: No Changes since office visit: No Cold of Flu in the past 2 weeks, No New Medical Problems, No Changes in Medication and No Patient answered all questions The patient has been examined within 24 hours of the surgical procedure. The History & Physical has been completed within 30 days and I have reviewed it.: Yes Section B - Complete if H&P > 30 days Chief Complaint: Abnormal uterine and vaginal bleeding, Allergies: Allergies Allergy/AdvReac Type Severity Reaction Status Date / Time No Known Allergies Allergy Verified 12/13/23 11:05 [No Known Allergies*] Plan Diagnosis/Plan: Unchanged I have reviewed the history and physical and performed a pertinent physical examination on my patient. No changes have occurred unless specified. Time Spent With Patient Time: Total time managing care of this patient today ____ minutes.
[2023-12-13] MEDS: Lactated Ringers 1,000 ML 100 ML IVCONT (11:34)
--- NOTE | 2023-12-13 15:56 | PM.OP ---
Brief Operative Note Date of Service: 12/13/23 Pre-op diagnosis: Abnormal uterine bleeding, endometrial polyp by EMB pathology Post-op diagnosis: same Procedure: Hysteroscopy D&C, Polypectomy Surgeon: Juan Bland MD Anesthesia: GLMA Was an Assistant Mechanic used for this Procedure?: No Estimated blood loss (mL): 0 Pathology: other (Endometrial Scrapping. Polyp) Condition: stable Disposition: PACU
--- NOTE | 2023-12-13 15:57 | W.PM.OPN ---
Operative Note Operative Note Date of Service: 12/13/23 Narrative: Preop Diagnosis: Abnormal uterine bleeding, endometrial polyp by EMB pathology Operation: Diagnostic Hysteroscopy, Dilataion & Curettage and polypectomy Post Op Diagnosis: Endometrial Polyp QBL: Minimal Anesthesia: GLMA Surgeon: Juan Bland MD Teacher Of The Hearing Impaired: None Complication: None Pathology: Endometrial Scrapings, Endometrial polyp Procedure: The patient was put in the dorsal lithotomy position, scrubbed, and draped in the usual manner. A sterile speculum was inserted in the patient's vagina. The anterior lip of the cervix was grasped with a single tooth tenaculum. The cervix was dilated up to 5 mm, then the scope was inserted in the patient's uterus. Inspection revealed endometrial polyp. The Myosure Reach device was used; it was introduced through the operative channel and polypectomy done with no complications. The scope was then taken out from the uterine cavity, sharp curettings was carried on with minimal to moderate amount of tissues retrieved. At the end of the procedure, all instruments were taken out of the patient uterine and vaginal cavity. The single tooth tenaculum was removed and homeostasis was assured using pressure,. The patient tolerated the procedure well and was transferred to the PACU in a stable condition.
== END 2023-12-13 14:30 | disposition home or self-care (01) ==
PROVIDERS: PCP Internal Medicine; Visit Provider Obstetrics & Gynecology
PROC: 0UDB8ZZ Extraction of Endometrium, Via Natural or Artificial Opening Endoscopic (ICD-10-PCS; CPT 58558; principal; 2023-12-13 12:00)
DX: N93.9 Abnormal uterine and vaginal bleeding, unspecified (principal); N84.0 Polyp of corpus uteri; D64.9 Anemia, unspecified; R03.0 Elevated blood-pressure reading, without diagnosis of hypertension; E03.9 Hypothyroidism, unspecified; Z79.1 Long term (current) use of non-steroidal anti-inflammatories (NSAID); Z79.899 Other long term (current) drug therapy
CPT/HCPCS: 58558; 81025; 88305; J1100; J1885; J2250; J2405; J2704; J3010

== ENCOUNTER → 2023-12-13 09:41 | Outpatient (BNV) | payer MEDICAID, SELFPAY | PROVIDERS: PCP Internal Medicine; Visit Provider Obstetrics & Gynecology | DX: N93.9 Abnormal uterine and vaginal bleeding, unspecified (principal); N84.0 Polyp of corpus uteri | CPT/HCPCS: 58558 ==

== ENCOUNTER 2024-01-02 08:11 | Outpatient (AMB) | payer MEDICAID, SELFPAY ==
[2024-01-02 08:15] VITALS: BMI 30.8
--- NOTE | 2024-01-02 08:15 | A.OFFVIS_ITS ---
Vital Signs 01/02/24 08:15 Height 5 ft 6 in Weight 191 lb BMI 30.8 Intake Visit Reasons: post op/emb results Property Management Bookkeeper Required: Yes Property Management Bookkeeper Language: Summer Law Clerk Services: Property Management Bookkeeper Present (in person) Property Management Bookkeeper Name: Sarah SYED Information Interpreted: non-clinical & clinical Accompanied by: Self / Same As Patient Allergies No Known Allergies [No Known Allergies*] Allergy (Verified 01/02/24 08:16) Post menopausal: Yes HPI Comments Details: The patient is presenting post hysteroscopy D&C no complaints minimal vaginal bleeding no feverishness chills or abdominal pain. The pathology showed the following: A. Endometrium, curettage: Inactive endometrium, no atypia or hyperplasia identified. B. Endometrium, polypectomy: Fragments of endometrial polyp; no atypia identified The following workup was done.: H&H= 13.3/39.9 TSH, prolactin, GC and chlamydia were negative. HCG=3, FSH LH elevated Endometrial biopsy pathology showed no evidence of hyperplasia and/or malignancy. Co testing was done in 06/07 was negative. Mammogram was in 06/08 BI-RADS 1 Pelvic ultrasound showed the following: Uterus: The uterus is anteverted and measures 9.6 x 5.4 x 5.4 cm. There are 2 visible uterine fibroids measuring up to 2.2 cm, stable to slightly decreased in size from prior. The endometrial stripe measures 6 mm. Adnexa: The right ovary measures 3.0 x 1.6 x 1.0 cm. The left ovary measures 3.0 x 1.1 x 1.1 cm. The ovaries appear normal. 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 Sexual orientation: Straight/Heterosexual Gender identity: Female Review of Systems Const All systems reviewed & are unremarkable except as noted in HPI and below Reports as per HPI and Reports no additional complaints GI Reports no additional complaints Reports no additional complaints Physical Exam Vital Signs: BMI result Body Mass Index 30.8 Assessment & Plan Assessment & Plan (1) Abnormal uterine bleeding: Comment: Endometrial polyp status post hysteroscopic polypectomy Code(s): N93.9 - Abnormal uterine and vaginal bleeding, unspecified Category: Medical Plan: Discussed with the patient the results of pathology showing benign polyp and inactive endometrium with no evidence of endometrial hyperplasia and/or malignancy. Since there is no evidence of proliferative endometrium, no indication for progesterone treatment although previous EMB showed proliferative endometrium. In addition discussed with the patient elevated FSH/LH. And hCG 3 similar to previous hCG in 2022. Explained to the patient mildly elevated hCG is related to elevated LH levels. Instructions given to patient to call in case of recurrence of any vaginal bleeding, will proceed with endometrial sampling to rule out endometrial pathology if proliferative endometrium is identified will treat with levo norgestrel IUD. (2) Uterine myoma: Code(s): D25.9 - Leiomyoma of uterus, unspecified Category: Medical Plan: Discussed with the patient the findings on pelvic ultrasound & the risk of myosarcoma; discussed with the patient the options of treatment including exp ectant management versus hysterectomy; the pros and cons, risks benefits of each approach were discussed with the patient including the fact that in cases of myosarcoma, surgical treatment can lead to early diagnosis and positively affects the prognosis; after further discussion, the patient decided to proceed with expectant management. Will repeat pelvic ultrasound periodically. Instructions given to patient to call in case any of the following occurs: pressure symptoms, abnormal uterine bleeding, pelvic pain; and to schedule a 9 months pelvic ultrasound and a follow-up appointment . All questions answered, the patient verbalized understanding and agreed with the plan . Orders: Orders US pelvic and transvaginal Today D25.9 - Leiomyoma of uterus, unspecified Coding Level of Care Code Est Pt Level 3 (70124) Diagnoses Abnormal uterine bleeding N93.9 Uterine myoma D25.9
== END 2024-01-02 08:38 | disposition home or self-care (01) ==
PROVIDERS: PCP Internal Medicine; Referring Provider Internal Medicine; Visit Provider Obstetrics & Gynecology
DX: N93.9 Abnormal uterine and vaginal bleeding, unspecified (principal); D25.9 Leiomyoma of uterus, unspecified
CPT/HCPCS: 99213

== ENCOUNTER → 2024-01-02 08:11 | Outpatient (BNVA) | payer MEDICAID, SELFPAY | PROVIDERS: PCP Internal Medicine; Visit Provider Obstetrics & Gynecology | DX: N93.9 Abnormal uterine and vaginal bleeding, unspecified (principal); D25.9 Leiomyoma of uterus, unspecified | CPT/HCPCS: 99212 ==

== ENCOUNTER 2024-01-09 11:22 | Outpatient (REF) | payer MEDICAID, SELFPAY ==
--- NOTE | ~2024-01-09 | US_ITS ---
EXAMINATION: US PELVIS CLINICAL INFORMATION: Uterine fibroids. COMPARISON: Pelvic ultrasound 10/01/2023. TECHNIQUE: Ultrasound of the pelvis is performed using both transabdominal and transvaginal transducers along with Doppler. Transvaginal imaging is performed due to inadequate visualization transabdominally. FINDINGS: Uterus: The uterus is anteverted and measures 10.2 x 4.7 x 4.5 cm. The double wall endometrial thickness is 0.3 mm. The endometrium is distorted by uterine fibroids (see below). Two mural/submucosal uterine fibroids are seen, increased in size since prior, with a fundal fibroid measuring 1.8 x 2.1 x 1.3 cm (previously 1.4 x 1.0 x 1.1 cm). An additional fibroid just below this measuring 3.5 x 3.2 x 2.6 cm (previously 2.2 x 2.1 x 1.9 cm). Adnexa: Both ovaries are visualized. There is normal color flow to the adnexa. There is no ovarian torsion. There is no pelvic ascites or fluid collection. Right ovary measures 2.0 x 1.7 x 1.0 cm for a volume 1.8 mL. Left ovary measures 2.6 x 1.0 x 2.1 cm for a volume of 2.9 mL. US/US pelvic and transvaginal IMPRESSION: Uterine fibroids have increased in size since prior. Electronically signed by: Ilia James MD 02/27/2024 12:24 PM [facility]
== END 2024-01-09 11:23 | disposition home or self-care (01) ==
LOC: HO.US 11:22
PROVIDERS: PCP Internal Medicine; Visit Provider Obstetrics & Gynecology
DX: D25.9 Leiomyoma of uterus, unspecified (principal)
CPT/HCPCS: 76830; 76856

== ENCOUNTER 2024-02-17 08:49 | Outpatient (AMB) | payer MEDICAID, SELFPAY ==
[2024-02-17 08:49] VITALS: BP 124/82; BMI 30.8
--- NOTE | 2024-02-17 08:49 | MHC.OFFVIS ---
Vital Signs 02/17/24 08:49 Height 5 ft 6 in Weight 191 lb BMI 30.8 BP 124/82 Blood Pressure Location Lt brachial Position Sitting Intake Visit Reasons: Ultrasound Follow up Conveyor Installer Required: Yes Conveyor Installer Language: Document Coordinator Services: Conveyor Installer Present Conveyor Installer Name: Donald ([id number]) Banana Ripening Room Supervisor: Banana Ripening Room Supervisor Present Allergies No Known Allergies [No Known Allergies*] Allergy (Verified 02/17/24 08:50) HPI Comments Details: Presenting for follow-up ultrasound regarding myoma with no complaints, no vaginal bleeding, no pelvic pain or pressure or any other complaints. Pelvic ultrasound done in 01/06, report is still pending. Unofficial reading shows anteverted uterus measuring 10.2 by 4.7 x 4.5 cm, 3 mm endometrial thickness, 2 myomas 1st 1 measuring 3.5 x 3.2 x 2.1 cm previously 2.2 x 2.1 x 1 9 cm, and the 2nd 1 measuring 1.8 x 2.1 x 1.3 cm, previously 1.4 x 1 x 1.1 cm. 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 Sexual orientation: Straight/Heterosexual Gender identity: Female Review of Systems Const All systems reviewed & are unremarkable except as noted in HPI and below Reports as per HPI and Reports no additional complaints GI Reports no additional complaints Reports no additional complaints Physical Exam Vital Signs: BMI result Body Mass Index 30.8 Assessment & Plan Assessment & Plan (1) Uterine myoma: Code(s): D25.9 - Leiomyoma of uterus, unspecified Category: Medical Plan: Discussed with the patient the findings on pelvic ultrasound & the risk of myosarcoma; discussed with the patient the options of treatment including expectant management versus hysterectomy; the pros and cons, risks benefits of each approach were discussed with the patient including the fact that in cases of myosarcoma, surgical treatment can lead to early diagnosis and positively affects the prognosis; after further discussion, the patient decided to proceed with expectant management. Will repeat pelvic ultrasound periodically. Instructions given to patient to call in case any of the following occurs: pressure symptoms, abnormal uterine bleeding, pelvic pain; and to schedule a six-months pelvic ultrasound and a follow-up appointment . All questions answered, the patient verbalized understanding and agreed with the plan . Orders: Orders US pelvic and transvaginal 6 Months D25.9 - Leiomyoma of uterus, unspecified Coding Level of Care Code Est Pt Level 3 (96122) Diagnoses Uterine myoma D25.9
== END 2024-02-17 09:02 | disposition home or self-care (01) ==
LOC: HO.HWS 08:49
PROVIDERS: PCP Internal Medicine; Visit Provider Obstetrics & Gynecology
DX: D25.9 Leiomyoma of uterus, unspecified (principal)
CPT/HCPCS: 99213

== ENCOUNTER → 2024-02-17 08:49 | Outpatient (BNVA) | payer MEDICAID, SELFPAY | PROVIDERS: PCP Internal Medicine; Visit Provider Obstetrics & Gynecology | DX: D25.9 Leiomyoma of uterus, unspecified (principal) | CPT/HCPCS: 99212 ==

== ENCOUNTER 2024-04-10 10:56 | Outpatient (REF) | payer MEDICAID, SELFPAY ==
[2024-04-10 12:43] LABS: Anion Gap 10 (12-20); Blood Urea Nitrogen 15 mg/dL (9-16); Calcium 8.7 mg/dL (8.4-10.2); Carbon Dioxide 29 mmol/L (22-29); Chloride 105 mmol/L (96-108); Cholesterol 156 mg/dL (<200); Estimated Glomerular Filt Rate > 60; Glucose Random 98 mg/dL (60-115); HDL Cholesterol 46 mg/dL (>40); LDL Cholesterol Calculated 94 mg/dL (<100); Potassium 3.8 mmol/L (3.3-5.1); Sodium 140 mmol/L (135-145); TSH reflex Free T4 2.31 uIU/mL (0.32-4.0); Triglycerides 80 mg/dL (<150); Vitamin D 25-OH Total 28.7 ng/mL (>30)
[2024-04-10 14:26] LABS: Reflex LDLD? No
== END 2024-04-10 10:57 | disposition home or self-care (01) ==
LOC: HO.HHCL 10:56
PROVIDERS: Visit Provider Internal Medicine
DX: E66.811 Obesity, class 1 (principal); E66.09 Other obesity due to excess calories; Z68.30 Body mass index [BMI] 30.0-30.9, adult; I10 Essential (primary) hypertension; M17.11 Unilateral primary osteoarthritis, right knee
CPT/HCPCS: 36415; 80048; 80061; 82306; 84443

== ENCOUNTER 2024-07-29 12:04 | Outpatient (REF) | payer MEDICAID, SELFPAY ==
--- OUTSIDE RECORDS SUMMARY | 2024-07-29 14:27 | XMS_ITS | Encounter Summary ---
Author Organization [employer] Address [address] [facility] 7t [place] [address] Care Team Providers Care Timers Inspector Name Role Phone Chrissie Khan MD Primary Care Provider + Reason for Visit * Reason Onset Date Comments Med Refill 01/16/2023 Encounter Details Date Type Department Care Team (Late st Contact Info) Description 01/16/2023 Refill [facility] [address] [place], [place] [phone] Chrissie Khan MD [address] [place] [address] Chronic low back pain, unspecified back pain laterality, unspecified whether sciatica present Social History Tobacco Use Types Packs/Day Years Used Date Smoking Tobacco: Never Passive Smoke Exposure: Never Smokeless Tobacco: Never Alcohol Use Standard Drinks/Week Comments Not Currently 0 (1 standard drink = 0.6 oz pur e alcohol) Depression Answer Date Recorded Patient Health Questionnaire-9 Score 0 05/03/2022 Depression Answer Date Recorded Patient Health Questionnaire-2 Score 0 05/03/2022 Comments Unknown Sex and Gender Information Value Date Recorded Sex Assigned at Female 02/12/2022 10:19 AM EDT Legal Sex Female 10:19 AM EDT Gender Identity Female 02/12/2022 10:19 AM EDT Sexual Orientation Straight 02/12/2022 10 :19 AM EDT documented as of this encounter Plan of Treatment Upcoming Encounters Date Type Department Care Team (Late st Contact Info) Description 09/25/2024 11:45 AM EDT Office Visit [facility] [address] [place] [address] Chrissie Khan MD [address] [place] [address] documented as of this encounter Visit Diagnoses Diagnosis Chronic low back pain, unspecified back pain laterality, unspecified whether sciatica present documented in this encounter Additional Health Concerns Assessment Noted Time PHQ-9 Depression Total Score: 0 05/03/19 23 8:59 AM EST documented as of this encounter Care Teams Timers Inspector Relationship Specialty Start Date End Date Chrissie Khan MD [address] [place] [phone] PCP - General Internal Medicine 03/23/22 documented as of this encounter
--- OUTSIDE RECORDS SUMMARY | 2024-07-29 14:27 | XMS_ITS | Encounter Summary ---
Author Organization [employer] Address [address] [facility] 7t [place] [address] Care Team Providers Care Boat Canvas Installer Name Role Phone Chrissie Khan MD Primary Care Provider + Reason for Visit * Reason Comments Med Refill Encounter Details Date Type Department Care Team (Late st Contact Info) Description 05/23/2024 Refill [facility] [address] [place], [place] [phone] Name, MD Ryan [address] [place] [address] Chronic low back pain, unspecified back pain laterality, unspecified whether sciatica present Social History Tobacco Use Types Packs/Day Years Used Date Smoking Tobacco: Never Passive Smoke Exposure: Never Smokeless Tobacco: Never Alcohol Use Standard Drinks/Week Comments Not Currently 0 (1 standard drink = 0.6 oz pur e alcohol) Alcohol Answer Date Recorded Q1: How often do you have a drink containing alc ohol? 1 01/17/2024 Q2: How many drinks containi ng alcohol do you have on a typical day when you are drinking? 1 01/17/2024 Q3: How often do you have six or more drinks on one occasion? 1 01/17/2024 Depression Answer Date Recorded Patient Health Questionnaire-9 Score 0 05/03/2022 Housing Stability Answer Date Recorded What is your housing situation today? I have roverto rendon 06/13/[address] you li ve. Do you have problems with any of the following? None of the above 06/13/2023 Food Insecurity Answer Date Recorded Within the past 12 months, y ou worried that your food would run out before you got money to buy more: Never True 06/13/2023 Within the past 12 months,th e food you bought just didn't last and you didn't have enough money to get more: Never True Transportation Answer Date Recorded In the past 12 months, has l ack of transportation kept you from medical appts, meetings, work or from getting things needed for daily living? No 06/13/2023 Utilities Answer Date Recorded In the past 12 months, has t he electric, gas, oil or water company threatened to shut off services in your home? No 06/13/2023 Depression Answer Date Recorded Patient Health Questionnaire-2 Score 0 06/13/2023 Internet Access Answer Date Recorded Internet Access Q1 Yes 04/17/2024 Internet Access Q2 Not on file 04/17/2024 Comments Unknown Sex and Gender Information Value [...] Description 09/25/2024 11:45 AM EDT Office Visit [facility] [address] [place] [phone] Chrissie Khan MD [address] [place] [phone] documented as of this encounter Visit Diagnoses Diagnosis Chronic low back pain, unspecified back pain laterality, unspecified whether sciatica present documented in this encounter Additional Health Concerns Assessment Noted Time PHQ-9 Depression Total Score: 0 05/03/19 23 8:59 AM EST documented as of this encounter Care Teams Boat Canvas Installer Relationship Specialty Start Date End Date Chrissie Khan MD [address] [place] [phone] PCP - General Internal Medicine 03/23/22 documented as of this encounter
--- OUTSIDE RECORDS SUMMARY | 2024-07-29 14:27 | XMS_ITS | Encounter Summary ---
Author Organization [employer] Address [address] [facility] 7t [place] [address] Care Team Providers Care Quality Systems Engineer Name Role Phone Chrissie Khan MD Primary Care Provider + Reason for Visit * Reason Comments Med Refill Encounter Details Date Type Department Care Team (Late st Contact Info) Description 07/24/2024 Refill [facility] [address] [place], [place] [phone] Chrissie Khan MD [address] [place] [address] Social History Tobacco Use Types Packs/Day Years [...] Description 09/25/2024 11:45 AM EDT Office Visit [facility] [address] [place] [phone] Chrissie Khan MD [address] [place] [address] documented as of this encounter Visit Diagnoses Not on filedocumented in this encounter Additional Health Concerns Assessment Noted Time PHQ-9 Depression Total Score: 0 05/03/19 23 8:59 AM EST documented as of this encounter Care Teams Quality Systems Engineer Relationship Specialty Start Date End Date Chrissie Khan MD [address] [place] [phone] PCP - General Internal Medicine 03/23/22 documented as of this encounter
--- OUTSIDE RECORDS SUMMARY | 2024-07-29 14:27 | XMS_ITS | Encounter Summary ---
Author Organization [employer] Address [address] [facility] 7t [place] [address] Care Team Providers Care Master Yacht Name Role Phone Chrissie Khan MD Primary Care Provider + Reason for Visit * Reason Comments Med Refill Encounter Details Date Type Department Care Team (Late st Contact Info) Description 11/16/2023 Refill [facility] [address] [place], [place] [phone] Chrissie Kahn MD 230 [place] [address] Acute back pain with sciatica, unspecified laterality Social History Tobacco Use Types Packs/Day Years [...] Recorded Patient Health Questionnaire-2 Score 0 06/13/2023 Comments Unknown Sex and Gender Information Value [...] Description 09/25/2024 11:45 AM EDT Office Visit [facility] [address] [place] [address] Chrissie Khan MD [address] [place] [address] documented as of this encounter Visit Diagnoses Diagnosis Acute back pain with sciatica, unspecified laterality documented in this encounter Additional Health Concerns Assessment Noted Time PHQ-9 Depression Total Score: 0 05/03/19 23 8:59 AM EST documented as of this encounter Care Teams Master Yacht Relationship Specialty Start Date End Date Chrissie Khan MD [address] [place] [phone] PCP - General Internal Medicine 03/23/22 documented as of this encounter
--- OUTSIDE RECORDS SUMMARY | 2024-07-29 14:27 | XMS_ITS | Encounter Summary ---
Author Organization [employer] Address [address] [facility] 7t [place] [address] Care Team Providers Care Oxidized Finish Plater Name Role Phone Chrissie Khan MD Primary Care Provider + Reason for Visit * Reason Comments Med Refill Encounter Details Date Type Department Care Team (Late st Contact Info) Description 01/22/2023 Refill [facility] [address] [place], [place] [phone] Chrissie Khan MD 230 [place] [address] Acute back pain with sciatica, unspecified laterality [...] housing situation today? I have roverto rendon 01/22/[address] you li ve. Do you have problems with any of the following? None of the above 01/22/2023 Food Insecurity Answer Date Recorded Within the past 12 months, y ou worried that your food would run out before you got money to buy more: Never True 01/22/2023 Within the past 12 months,th e food you bought just didn't last and you didn't have enough money to get more: Never True 01/2023 Transportation Answer Date Recorded In the past 12 months, has l ack of transportation kept you from medical appts, meetings, work or from getting things needed for daily living? No 01/22/2023 Utilities Answer Date Recorded In the past 12 months, has t he electric, gas, oil or water company threatened to shut off services in your home? No 01/22/2023 Depression Answer Date Recorded Patient Health Questionnaire-2 [...] Description 09/25/2024 11:45 AM EDT Office Visit [facility] [address] [place] [address] Chrissie Khan MD [address] [place] [address] documented as of this encounter Visit Diagnoses Diagnosis Acute back pain with sciatica, unspecified laterality documented in this encounter Additional Health Concerns Assessment Noted Time PHQ-9 Depression Total Score: 0 05/03/19 23 8:59 AM EST documented as of this encounter Care Teams Oxidized Finish Plater Relationship Specialty Start Date End Date Chrissie Khan MD [address] [place] [phone] PCP - General Internal Medicine 03/23/22 documented as of this encounter
--- OUTSIDE RECORDS SUMMARY | 2024-07-29 14:27 | XMS_ITS | Encounter Summary ---
Author Organization [employer] Address [address] [facility] 7t [place] [address] Care Team Providers Care Double Bass Player Name Role Phone Chrissie Khan MD Primary Care Provider + Reason for Visit * Reason Onset Date Comments Appointment Request 02/06/2023 Encounter Details Date Type Department Care Team (Late st Contact Info) Description 02/06/2023 Telephone [facility] [address] [place], [place] [phone] Chrissie Khan MD 230 [place] [address] Appointment Request Social History Tobacco Use Types Packs/Day Years Used Date Smoking Tobacco: Never Passive Smoke Exposure: Never Smokeless Tobacco: Never Alcohol Use Standard Drinks/Week Comments Not Currently 0 (1 standard drink = 0.6 oz pur e alcohol) Depression Answer Date Recorded Patient Health Questionnaire-9 Score 0 05/03/2022 Housing Stability Answer Date Recorded What is your housing situation today? I have roverto rendon 02/06/[address] you li ve. Do you have problems with any of the following? None of the above 02/06/2023 Food Insecurity Answer Date Recorded Within the past 12 months, y ou worried that your food would run out before you got money to buy more: Never True 02/06/2023 Within the past 12 months,th e food you bought just didn't last and you didn't have enough money to get more: Never True Transportation Answer Date Recorded In the past 12 months, has l ack of transportation kept you from medical appts, meetings, work or from getting things needed for daily living? No 02/06/2023 Utilities Answer Date Recorded In the past 12 months, has t he electric, gas, oil or water company threatened to shut off services in your home? No 02/06/2023 Depression Answer Date Recorded Patient Health Questionnaire-2 Score 0 05/03/2022 Comments Unknown Sex and Gender Information Value Date Recorded Sex Assigned at Female 02/12/2022 10:19 AM EDT Legal Sex Female 10:19 AM EDT Gender Identity Female 02/12/2022 10:19 AM EDT Sexual Orientation Straight 02/12/2022 10 :19 AM EDT documented as of this encounter Miscellaneous Notes * Telephone Encounter - Kamla Watts - 02/06/2023 10:02 AM EDT Tc from pt requesting a OV appt music writer schedule pt for 03/14 however pt will like an appt before. Any questions contact pt in macedonian. documented in this encounter Plan of Treatment Upcoming Encounters Date Type Department Care Team (Late st Contact Info) Description 09/25/2024 11:45 AM EDT Office Visit [facility] [address] [place] [phone] Chrissie Khan MD [address] [place] [phone] documented as of this encounter Visit Diagnoses Not on filedocumented in this encounter Additional Health Concerns Assessment Noted Time PHQ-9 Depression Total Score: 0 05/03/19 23 8:59 AM EST documented as of this encounter Care Teams Double Bass Player Relationship Specialty Start Date End Date Chrissie Khan MD [address] [place] [phone] PCP - General Internal Medicine 03/23/22 documented as of this encounter
--- OUTSIDE RECORDS SUMMARY | 2024-07-29 14:27 | XMS_ITS | Encounter Summary ---
Author Organization [employer] Address [address] [facility] 7t [place] [address] Care Team Providers Care Pants Busheler Name Role Phone Chrissie Khan MD Primary Care Provider + Reason for Visit * Reason Comments Med Refill Encounter Details Date Type Department Care Team (Late st Contact Info) Description 07/01/2022 Refill [facility] [address] [place], [place] [phone] Chrissie Khan MD [address] [place] [address] Iron deficiency anemia due to chronic blood loss Social History Tobacco Use Types Packs/Day Years Used Date Smoking Tobacco: Never Smokeless Tobacco: Never Alcohol Use Standard [...] Description 09/25/2024 11:45 AM EDT Office Visit [facility] [address] [place] [address] Chrissie Khan MD [address] [place] [address] documented as of this encounter Visit Diagnoses Diagnosis Iron deficiency anemia due to chronic blood loss Iron deficiency anemia secondary to blood loss (chronic) documented in this encounter Additional Health Concerns Assessment Noted Time PHQ-9 Depression Total Score: 0 05/03/19 23 8:59 AM EST documented as of this encounter Care Teams Pants Busheler Relationship Specialty Start Date End Date Chrissie Khan MD [address] [place] [address] PCP - General Internal Medicine 03/23/22 documented as of this encounter
--- OUTSIDE RECORDS SUMMARY | 2024-07-29 14:27 | XMS_ITS | Encounter Summary ---
Author Organization [employer] Address [address] [facility] 7t [place] [address] Care Team Providers Care Patient Service Coordinator Name Role Phone Chrissie Khan MD Primary Care Provider + Chrissie Khan MD Primary Care Provider + Encounter Details Date Type Department Care Team (Late st Contact Info) Description 03/16/2022 Telephone [facility] [address] [place] [address] [phone] Chrissie Khan MD [address] [place] [address] [phone] Social History Tobacco Use Types Packs/Day Years Used Date Smoking Tobacco: Never Assessed Comments Unknown Sex and Gender Information Value [...] Description 09/25/2024 11:45 AM EDT Office Visit [facility] [address] [place] [address] [phone] Chrissie Khan MD [address] [place], [place] [phone] documented as of this encounter Visit Diagnoses Not on filedocumented in this encounter Care Teams Patient Service Coordinator Relationship Specialty Start Date End Date Chrissie Khan MD [address] [place] [phone] PCP - General Family Medicine 11/28/16 03/22/22 Chrissie Khan MD [address] [place] [phone] PCP - General Internal Medicine 03/23/22 documented as of this encounter
--- OUTSIDE RECORDS SUMMARY | 2024-07-29 14:27 | XMS_ITS | Encounter Summary ---
Author Organization [employer] Address [address] [facility] 7t [place] [address] Care Team Providers Care Production Welder Name Role Phone Chrissie Khan MD Primary Care Provider + Encounter Details Date Type Department Care Team (Late st Contact Info) Description 08/02/2022 Abstract [facility] [address] [place] [address] Chrissie Khan MD [address] [place], [place] [phone] Social History Tobacco Use Types Packs/Day Years [...] Orientation Straight 02/12/2022 10 :19 AM EDT COVID-19 Exposure Response Date Recorded In the last 10 days, have yo u been in contact with someone who was confirmed or suspected to have Coronavirus/COVID-19? No / Unsure 08/02/2022 11:10 AM EDT documented as of this encounter Plan of Treatment Upcoming Encounters Date Type Department Care Team (Late st Contact Info) Description 09/25/2024 11:45 AM EDT Office Visit [facility] [address] [place] [address] Chrissie Khan MD [address] [place] [address] documented as of this encounter Procedures Procedure Name Priority Date/Time Associated Diagnosis Comments HIV 1/2 ANTIGEN AND ANTIBODY (EXTERNAL RESULTS ONLY) Routine 05/01/2013 8:50 AM EST documented in this encounter Results * HIV 1/2 ANTIGEN AND ANTIBODY (EXTERNAL RESULTS ONLY) (05/01/2013 8:50 AM EST) HIV Ag/Ab Nonreactive 05/01/2013 8:50 AM EST Vivek Zimmerman [facility] POINT OF CARE TE ST DOCKED DEVICE UNSOLICITED RESULTS Final Result documented in this encounter Visit Diagnoses Not on filedocumented in this encounter Additional Health Concerns Assessment Noted Time PHQ-9 Depression Total Score: 0 05/03/19 23 8:59 AM EST documented as of this encounter Care Teams Production Welder Relationship Specialty Start Date End Date Chrissie Khan MD [address] [place] [address] PCP - General Internal Medicine 03/23/22 documented as of this encounter
--- OUTSIDE RECORDS SUMMARY | 2024-07-29 14:27 | XMS_ITS | Clinical Summary ---
Author Organization [employer] Address [address] [facility] [address] [place] [address] Care Team Providers Care Customer Support Executive Name Role Phone Chrissie Khan MD Primary Care Provider + Allergies No known active allergies Medications ammonium lactate (Amlactin) 12 % cream use daily as needed 022 Active clotrimazole (Lotrimin) 1 % cream apply by topical route 2 times every day to the affected and surrounding areas of skin in the morning and evening 022 Active diphenhydrAMINE (BENADryl) 25 MG capsule take 1-2 capsule by oral route every night needed 021 Active Blood Pressure Monitor kitIndications:Pr imary hypertension Use to monitor blood pressure at home 1 kit 024 Active lisinopril 10 MG tablet Take 1 tablet (10 mg) by mouth Once per day. 90 tablet 3 024 2024 Active lidocaine (Lidoderm) 5 % patchIndications: Acute back pain with sciatica, unspecified laterality APPLY 1 PATCH TOPICALLY EVERY DAY. REMOVE AND DISCARD PATCH WITHIN 12 HOURS OR DIRECTED BY DOCTOR 30 patch 025 Active ibuprofen 400 MG tabletIndications :Chronic low back pain, unspecified back pain laterality, unspecified whether sciatica present TAKE 1-2 TABLET BY ORAL ROUTE EVERY 8-12 HOURS NEEDED FOR PAIN/FEVER 90 tablet 025 Active ergocalciferol (Vitamin D2) 1.25 MG (29018 UT) capsule TAKE 1 CAPSULE BY MOUTH ONE TIME PER WEEK 12 capsule 1 Active levothyroxine (Synthroid, Levoxyl) 25 MCG tabletIndications :Acquired hypothyroidism TAKE 1 TABLET (25 MCG) BY MOUTH IN THE MORNING 90 tablet 1 Active cetirizine (ZyrTEC) 10 MG tablet TAKE 1 TABLET (10 MG) BY MOUTH ONCE PER DAY. 90 tablet 025 Active cetirizine (ZyrTEC) 10 MG tablet Take 1 tablet (10 mg) by mouth Once per day. 90 tablet 025 2024 Discontinued amoxicillin-clavu lanate (Augmentin) 875-125 MG tabletIndications :Right otitis media, unspecified otitis media type Take 1 tablet by mouth 2 times daily for 5 days. 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 Advised to wear wrist brace at work and at night. Re-consult PRN. Encounter for immunization 04/27/2024 Assessment & Plan (04/27/2024 4:43 PM EST): Patient would like to have the TD vaccine administered today. Class 1 obesity due to exces s calories with serious comorbidity and body mass index (BMI) of 30.0 to 30.9 in adult 01/17/2024 Assessment & Plan (01/17/2024 11:41 AM EDT): Discussed re weight reduction options including exercise, life style modifications, diet and referral to contact center specialist. Recommended to decrease soda and sugary beverage consumption, increase protein intake with meals (at least 1 portion of protein with each meal) to assist with satiety, increase dietary fiber Recommended at least 150 min/week of moderate intensity exercise. Heel pain, bilateral 01/17/2024 Assessment & Plan (01/17/2024 1:58 PM EDT): Most likely heel spurs. Advised to use shoes with padded insoles on the heel. Re-consult prn. Osteoarthritis of left knee 01/17/2024 Assessment & Plan (01/17/2024 1:58 PM EDT): Continue Tylenol prn. Refer to PT. Dysphonia 07/18/2023 Assessment & Plan (07/18/2023 10:41 AM EDT): Resolving, likely related to previous URI Recommended increased PO fluids, wear a face mask when outdoors to protect form dry and cold air Rest voice Vitamin D deficiency 06/13/2023 Assessment & Plan (06/13/2023 11:59 AM EST): Counseled regarding outdoor exercise at least 15 min daily Take vit d supplementation x 6 m Acquired hypothyroidism 06/13/2023 Assessment & Plan (04/27/2024 2:37 PM EST): TSH is at goal Continue levothyroxine 25 mcg /day Assessment & Plan (06/13/2023 12:03 PM EST): TSH is at goal Continue levothyroxine 25 mcg /day Actinic keratoses 03/14/2023 Assessment & Plan (03/14/2023 12:09 PM EST): Resolved, biopsy results discussed w/ pt FU PRN, avoid sun exposure Primary hypertension 03/14/2023 Assessment & Plan (04/27/2024 4:43 PM EST): Controlled. Compliant w/meds Continue lisinopril 10 mg. Counseled re low salt diet/increase moderate physical activity. Check home BP BIW and prn CP/MARTINEZ/ASIF Non smoking patient. Assessment & Plan (01/17/2024 1:57 PM EDT): Borderline controlled, seems higher at home. Increase Lisinopril to 10 mg and follow up with me in 6-8 weeks. Counseled re low salt diet/increase moderate physical activity. Check home BP BIW and prn CP/MARTINEZ/ASIF Non smoking patient. Order Labs. Assessment & Plan (07/18/2023 10:40 AM EDT): Repeated BP was 140/80 Controlled. Compliant w/meds Continue lisinopril 5mg Counseled re low salt diet/increase moderate physical activity. Check home BP BIW and prn CP/MARTINEZ/ASIF Non smoking patient. FU 6 m Assessment & Plan (06/13/2023 12:00 PM EST): Most likely uncontrolled I sent a Rx for her own BP machine to pick up attendant at pharmacy Continue lisinopril 5mg Counseled re low salt diet/increase moderate physical activity. Check home BP BIW and prn CP/MARTINEZ/ASIF Non smoking patient. Fu w me in 4-5 wks Non-healing skin lesion 08/02/2022 Assessment & Plan (08/02/2022 11:51 AM EDT): On right worship. Refer to dermatology Tubular adenoma of colon 08/02/2022 Assessment & Plan (08/02/2022 11:51 AM EDT): 3 lesions resected. Next colonoscopy due on 2024. Chronic low back pain 03/15/2022 COVID-19 03/15/2022 Impaired glucose tolerance 03/15/2022 Overview (03/14/2023): Assessment & Plan (01/17/2024 1:59 PM EDT): I have discussed with patient regarding increasing physicial activity and decrease calorie intake I'll check FBS with next set of labs. To check RBS at next visit. Will order labs and follow up in 6 months. Assessment & Plan (03/14/2023 12:09 PM EST): Controlled. Counseled re more frequent low calorie/carb meals. Check fgstk twice /wk Encouraged physical activity as tolerated. FU PRN Intramural leiomyoma of uterus 03/15/2022 Assessment & Plan (08/02/2022 12:29 PM EDT): Follwed by [employer] RETENTION SPECIALIST FU results of endometrial biopsy + pelvic US Assessment & Plan (05/03/2022 9:27 AM EST): She was never seen by OFFENDER [employer] RETENTION SPECIALIST apparently. -We will check with OFF[employer] RETENTION SPECIALIST to reschedule appointment. Lateral epicondylitis 03/15/2022 Primary insomnia 03/15/2022 Primary osteoarthritis of right knee 03/15/2022 Assessment & Plan (01/17/2024 1:58 PM EDT): Continue Tylenol prn. Refer to PT. Urinary tract infectious disease 03/15/2022 Hearing loss 11/21/2017 Eczema 05/08/2013 Iron deficiency anemia due to chronic blood loss 11/13/2012 Assessment & Plan (06/13/2023 12:02 PM EST): Significantly improving Complete iron supplementation x 3 months Due for FU colonoscopy next yr Assessment & Plan (03/14/2023 12:09 PM EST): Improved Assessment & Plan (08/02/2022 12:29 PM EDT): Hemoglobin significantly improved, now almost 12 secondary to DUB and GIB Continue iron to complete 3 months and FU with [employer] RETENTION SPECIALIST FU with me in 6 months Assessment & Plan (05/03/2022 9:28 AM EST): Her last hemoglobin was wnl. She has continued on iron once a day due to iron deficiency. -Continue iron supplementation until 08/02/22 and fu with me in 3 months to check hemoglobin. -reconsider [employer] RETENTION SPECIALIST referral if she continues with DUB. Menorrhagia 11/13/2012 Assessment & Plan (07/18/2023 2:42 PM EDT): Resolved, s/p endometrial biopsy 2022 Seems to be having perimenopausal changes, Fu w/ [employer] RETENTION SPECIALIST Hemoglobin remains stable, can DC iron supplementation Assessment & Plan (06/13/2023 12:00 PM EST): Resolved, pt is perimenopausal Continue iron supplementation to complete 3 m Fu PRN Assessment & Plan (03/14/2023 12:11 PM EST): Resolved s/p endo biopsy + provera, pt may be menopausal now Reassurance given recent nl cheri FU w/ [employer] RETENTION SPECIALIST Assessment & Plan (08/02/2022 12:28 PM EDT): Pt with perimenopause, now oligomenorrhea FU with [employer] RETENTION SPECIALIST Resolved Problems Problem Noted Date Diagnosed Date Resolved Date Acute back pain with sciatica 03/15/2022 07/18/2023 Centipede bite 03/15/2022 07/18/2023 Prehypertension 03/15/2022 06/13/2023 Tinea corporis 03/15/2022 07/18/2023 Foreign body in vagina 03/06/201707/17 Encounters Date Type Department Care Team Description 07/24/2024 Refill [facility] [address] [place] [address] Chrissie Khan MD 06/26/2024 11:20 AM EDT Office Visit [facility] [address] [place] [address] Katelyn Grant MD Right otitis media, unspecified otitis media type (Primary Dx) 06/26/2024 Telephone [facility] [address] [place] [address] Chrissie Khan MD September06/26/2024 Travel 06/26/2024 Population Health Risk Score [facility] Department [address] [phone] Provider, Population Health Generic 06/26/2024 Telephone [facility] [address] [place], [place] [phone] Chrissie Khan MD Nurse Triage 05/23/2024 Refill [facility] [address] [place] [address] Name, MD Ryan Chronic low back pain, unspecified back pain laterality, unspecified whether sciatica present 05/23/2024 Refill [facility] [address] [place] [address] Chrissie Khan MD Acute back pain with sciatica, unspecified laterality; Chronic low back pain, unspecified back pain laterality, unspecified whether sciatica present; Acquired hypothyroidism from Last 3 Months Immunizations Name Administration Dates Next Due Hep B, adult 04/20/2019, 9,10/09/2018,2007 INFLUENZA VACCINE QUADRIVALE NT RECOMBINANT PRESERVATIVE FREE RIV4 02/08/2020 Influenza injectable quadriv alent IIV4 with preservative 03/06/2017 Influenza injectable quadriv alent preservative free 02/02/2022,02/16/2019 Influenza, IIV3, injectable 12/14/2010 Influenza, Split (incl. shawanda fied surface antigen) 2013,02/19/2012 Influenza, seasonal, injecta ble, preservative free 01/17/2024 Pfizer Covid-19 Vaccine 12+ 05/23/2021,,08/11/2020 TD (adult), 2 Lf tetanus tox oid, preservative free, adsorbed 04/27/2024,04/28/2007 Td (adult), 5 Lf tetanus tox oid, preservative free, adsorbed 10/12/2012 Tdap 2013 Social History Tobacco Use Types Packs/Day Years Used Date Smoking Tobacco: Never Passive Smoke Exposure: Never Smokeless Tobacco: Never Tobacco Cessation:Counseling Given: Not Answered Alcohol Use Standard Drinks/Week Comments Not Currently [...] Orientation Straight 02/12/2022 10 :19 AM EDT Last Filed Vital Signs Vital Sign Reading Time Taken Comments Blood Pressure 140/76 06/26/2024 11:20 AM EDT Pulse 72 06/26/2024 11:20 AM EDT Temperature 36.9 ??C (98.4 ??F) 06/26/2024 11:20 AM E DT Respiratory Rate 17 06/26/2024 11:20 AM EDT Oxygen Saturation 98% 02/04/2024 11:24 AM EDT Inhaled Oxygen Concentration - - Weight 92.2 kg (203 lb 3.2 oz) 06/26/2024 11:20 AM EDT Height 167.6 cm (5' 6 ) 06/26/2024 11:20 AM EDT Body Mass Index 32.8 06/26/2024 11:20 AM EDT Plan of Treatment Upcoming Encounters Date Type Department Care Team (Late st Contact Info) Description 09/25/2024 11:45 AM EDT Office Visit [facility] [address] [place] [address] Chrissie Khan MD [address] [place] [address] Health Maintenance Due Date Last Done Comments CT Colonography 1971 FIT DNA/Cologuard 1971 FIT 1970 FOBT 1970 Sigmoidoscopy 1970 Pneumococcal Vaccine: 50+ Years (1 of 1 - PCV) 2021 Zoster Vaccines (1 of 2) 2021 Mammogram 06/11/2023 05/31/2023, 02/0 11/2022, 05/23/2022, Additional history exists COVID-19 Vaccine ( season) 2023 02/21/2023, 05/23/2021, 09/01/2020, Additional history exists Depression Screening 06/12/2024 06/13/2023, 05/03/19 Alcohol/Substance Use Screening 01/16/2025 01/17/2024 SDOH Screening 04/17/2025 04/17/2024 Pap Smear 06/11/2025 06/11/2022 Tobacco Screening 06/26/2025 06/26/2024 Colonoscopy 07/23/2025 Colorectal Cancer Screening 07/23/2025 Cervical Cancer Screening 06/11/2027 HPV/Cotest 06/11/2027 06/11/2022, 12/04/2018 Lipid Panel 04/10/2029 04/10/2024, 04/16, 06/16/2021 DTaP/Tdap/Td Vaccines (3 - Td or Tdap) 04/27/2034 04/27/2024, 2013, 10/12/2012, Additional history exists RSV Patients and Patients Aged 60 years or older (1 - 1-dose 75+ series) 2046 HIV Screening Completed 05/01/2013 Hepatitis C Screening Completed 05/01/2013 Hepatitis B Vaccines Completed 04/20/2019, 02/16/2019, 10/09/2018, Additional history exists Influenza Vaccine Completed 01/17/2024, , 02/02/2022, Additional history exists HIB Vaccines Aged Out No longer eligi ble based on patient's age to complete this topic HPV Vaccines Aged Out No longer eligi ble based on patient's age to complete this topic Hepatitis A Vaccines Aged Out No long er eligible based on patient's age to complete this topic IPV Vaccines Aged Out No longer eligi ble based on patient's age to complete this topic Meningococcal Vaccine Aged Out No narinder fransisca eligible based on patient's age to complete this topic RSV under 20 months Aged Out No longe r eligible based on patient's age to complete this topic Rotavirus Vaccines Aged Out No longer eligible based on patient's age to complete this topic Procedures Procedure Name Priority Date/Time Associated Diagnosis Comments POCT RAPID STREP A Routine 06/26/2024 12 :44 PM EDT Right otitis media, unspecified otitis media type LIPID PANEL WITH REFLEX TO DIRECT LDL Routine 04/10/2024 10:58 AM EST Primary hypertension BI MAMMOGRAM SCREENING TOMOSYNTHESIS BILATERAL Routine 05/31/2023 8:20 AM EST HPV MRNA E6/E7 REFLEX TO HPV 16, 18/45 Routine 06/11/2022 11:52 AM EST PAP SMEAR Routine 06/11/2022 11:52 AM EST HEPATITIS C AB W/REFL TO HCV RNA, QN, PCR Routine 05/01/2013 8:50 AM EST HIV 1/2 ANTIGEN AND ANTIBODY (EXTERNAL RESULTS ONLY) Routine 05/01/2013 8:50 AM EST from Last 3 Months or Most Recently Relevant to Health Maintenance Results * POCT rapid strep A manually resulted (06/26/2024 12:44 PM EDT) Rapid Strep A Screen Negative Negative, None Detected Swab 06/26/2024 12:4 4 PM EDT Katelyn Grant MD POINT OF CARE TEST ENTER/EDIT ORDERABLES Final Result * Lipid Panel with Reflex to Direct LDL (04/10/2024 10:58 AM EST) Triglycerides 80 <150 mg/dL [facility] Comment:Desirable Triglyceri de: less than 150 mg/dLBorderline High Triglyceride 150-199 mg/dLHigh Triglyceride: 200-499 mg/dLVery High Triglyceride: greater than or equal to 5OO mg/dL Cholesterol 156 <200 mg/dL [facility] Comment:Desirable Cholestero l: less than 200 mg/dLBorderline High Cholesterol: 200-239 mg/dLHigh Cholesterol: greater than 239 mg/dL LDL Cholesterol Calculated 94 <100 mg/dL [facility] Comment:Desirable LDL: less than 100 mg/dLNear Optimal/Above Optimal LDL: 110- 129 mg/dLBorderline High LDL: 130-159 mg/dLHigh LDL: 160-189 mg/dLVery High LDL: greater than or equal to 190 mg/dL HDL Cholesterol 46 >40 mg/dL [facility] Comment:Desirable HDL: great er than 40 mg/dL Note: This HDL assay may give artificially low results in patients with liver disease. Blood 04/10/2024 10:5 8 AM EST 04/10/2024 11:35 AM EST us Chrissie Khan MD LAB BLOOD ORDERABLES Fin al Result [facility] [address] [place] [phone] * BI Mammogram Screening Tomosynthesis Bilateral (05/31/2023 8:20 AM EST) Anatomical Region Laterality Modality Breast Bilateral Mammography 05/31/2023 8:20 AM EST Narrative 06/25/2023 11:56 AM EDT ? [facility] ? [address] ?[place] [address] ? Mammography Report ? Signed ? Patient: Rodriguez,Irene ?MR#: [id number] ?? [id number] ? : 1970 ?Acct:[id number] ? Age/Sex: 53 / F ?ADM Date: 02/16/24 ? Loc: HO.MAMMO ? Attending Dr: Chrissie Khan MD ? Ordering Physician: Chrissie Khan MD ?Results: 1Ne ?? gative ? Date of Service: 05/31/23 ?Follow Up: 1 Year From Orig ?? inal Mammogram ? Procedure(s): MM tomosynthesis screening BI ?? Accession Number(s): [id number] ? cc: Chrissie Khan MD ? EXAMINATION: ?? MM SCREENING DIGITAL BREAST TOMOSYNTHESIS, BILATERAL ? CLINICAL INFORMATION: ? Screening. Asymptomatic. ? COMPARISON: ?? Mammography: This study is compared with prior exams dating back to ?? 2017. ? TECHNIQUE: ?? Digital breast tomosynthesis is performed in both the craniocaudal and ?? mediolateral oblique views along with computer-aided detection (CAD). ?? Synthesized 2D images are generated from the tomosynthesis. ? FINDINGS: ?? There are scattered areas of fibroglandular density (ACR BI-RADS breast ?? composition Category b). ? There are no significant masses, abnormal calcifications, or other ?? abnormalities. ? MM/MM tomosynthesis screening BI ?? IMPRESSION: ?? No mammographic evidence of malignancy. ? ASSESSMENT: ? BI-RADS BI-RADS 1 - Negative ? RECOMMENDATION: ?? Routine annual mammography screening. ? 1 year F/U ? This examination should not preclude the clinical evaluation of a ?? suspicious palpable abnormality. ? This patient's information was entered into a reminder system with a ?? target due date for their next mammogram. ? Dictated By: ?Odessa Menendez MD ? Signed By: ?<Electronically signed by Odessa Menendez MD in OV> ? 06/25/232 ? DD/ 0820 ? TD/TT: ? Manufacturing Engineering Manager: ? Procedure Note Donotuseinterpreter, Image - 06/25/2023 [facility] [address] [place] [address] Mammography Report Signed Patient: Irene RodriguezMR#: [id number] : 1970Acct:[id number] Age/Sex: 53 / FADM Date: 05/31/23 Loc: [facility] Attending Dr: Chrissie Khan MD Ordering Physician: Chrissie Khan MDResults: 1Ne gative Date of Service: 05/31/23Follow Up: 1 Year From Orig inal Mammogram Procedure(s): MM tomosynthesis screening BI Accession Number(s): [id number] cc: Chrissie Khan MD EXAMINATION: MM SCREENING DIGITAL BREAST TOMOSYNTHESIS, BILATERAL CLINICAL INFORMATION: Screening. Asymptomatic. COMPARISON: Mammography: This study is compared with prior exams dating back to 2017. TECHNIQUE: Digital breast tomosynthesis is performed in both the craniocaudal and mediolateral oblique views along with computer-aided detection (CAD). Synthesized 2D images are generated from the tomosynthesis. FINDINGS: There are scattered areas of fibroglandular density (ACR BI-RADS breast composition Category b). There are no significant masses, abnormal calcifications, or other abnormalities. MM/MM tomosynthesis screening BI IMPRESSION: No mammographic evidence of malignancy. ASSESSMENT: BI-RADS BI-RADS 1 - Negative RECOMMENDATION: Routine annual mammography screening. 1 year F/U This examination should not preclude the clinical evaluation of a suspicious palpable abnormality. This patient's information was entered into a reminder system with a target due date for their next mammogram. Dictated By: Odessa Menendez MD Signed By: <Electronically signed by Odessa Menendez MD in OV> 06/25/23 1152 DD/ 0820 TD/TT: Manufacturing Engineering Manager: Chrissie Khan MD IMG BI PROCEDURES Final Result * HPV mRNA E6/E7 w/Reflex to HPV Genotypes 16, 18/45 (06/11/2022 11:52 AM EST) HPV nRNA E6/E7 Not Detected Not Detected [facility] Comment:Methodology: Transcr iption-Mediated AmplificationThis assay detects E6/E7 viral messenger RNA (mRNA) from 14high-risk HPV types (16,18,31,33,35,39,45,51,52,56,58,59,66,68).Cervical sources are required for HPV testing.If a vaginal source from a patient who has had atotal hysterectomy with removal of cervix wassubmitted, please contact the testing laboratoryfor alternative testing options.For additional information, please refer [email or web address]/VYJ305x3(This link if provided for information/educational purposes only.)THIS TEST WAS PERFORMED AT:[facility] [employer] [place] [id number] ROBLEDO MD HPV mRNA E6/E7 [facility] HPV 16 RNA [facility] HPV 18/45 RNA [facility] 06/11/2022 11:5 2 AM EST 06/11/2022 12:00 PM EST [facility] External Provider LAB CYT OLOGY ORDERABLES Final Result [facility] [address] [place] [phone] * Pap Smear (06/11/2022 11:52 AM EST) 06/11/2022 11:5 2 AM EST 06/11/2022 12:00 PM EST Narrative [facility] - 06/17/2022 3:42 PM EST ----- ------- Name: Irene Rodriguez ?Age/Sex: 52/F ? : 1970 Unit#: [id number] ?? Attend Dr: Juan Bland MD ?Re06/11/22 ?Status: DEP REF ? Location: HO.LNP ?Disch: ? ----- ------- SPEC : [id number] ? RECD: 06/11/22-1200 ? STATUS: ??SOUT ? REQ NUM: [id number] ? CHLOE: 06/11/22-1152 ? SUBM DR: Juan Bland MD ? ENTERED: ??06/12/22-8157 ?SP TYPE: Pap Smr ?OTHR DR: Chrissie Khan MD ? ORDERED: ??Pap Smear ? Interpretation ?? Satisfactory for evaluation. ?? Negative for intraepithelial lesion or malignancy. ? HPV mRNA E6/E7: ?NOT DETECTED ? This assay detects E6/E7 viral messenger RNA (mRNA) from 14 high-risk HPV types (16, 18, ?? 31, 33, 35, 39, 45, 51, 52, 56, 58, 59, 66, 68) ? HPV testing performed by [employer], [place], [place]. ??See reference laboratory ?? portion of the EMR for entire report. ?Clinical Information LMP: 05/17/2022 Previous PAP test: Unknown ? Material Received ?? ThinPrep-Cervical Copies To: ?? Chrissie Khan MD ?? [address] [facility] ?? [place] [address] ? Juan Bland MD ?? [address] [place] [address] Dr[address] [facility] ?? [place] [address] ?? [phone] ----- ------- Signed (signature on file) Cheyanne Graham Shabnam 06/17/22 1542 ? ----- ------- ? END OF REPORT ? [facility] External Provider LAB CYT OLOGY ORDERABLES Final Result [facility] [address] [place] [address] [phone] * HIV 1/2 ANTIGEN AND ANTIBODY (EXTERNAL RESULTS ONLY) (05/01/2013 8:50 AM EST) HIV Ag/Ab Nonreactive 05/01/2013 8:50 AM EST Vivek Zimmerman NP LAB POINT OF CARE TE ST DOCKED DEVICE UNSOLICITED RESULTS Final Result * Hepatitis C Antibody with Reflex to HCV, RNA, Quantitative, Real-Time PCR (05/01/2013 8:50 AM EST) Blood Venous blood specimen / Unknown 05/01/2013 8:50 AM EST Vivek Zimmerman NP LAB BLOOD ORDERABLES Final R esult from Last 3 Months or Most Recently Relevant to Health Maintenance Insurance C3 HSN FULL Care Teams Customer Support Executive Relationship Specialty Start Date End Date Chrissie Khan MD [address] [place] [phone] PCP - General Internal Medicine 03/23/22
== END 2024-07-29 12:05 | disposition home or self-care (01) ==
LOC: HO.MAMMO 12:04
PROVIDERS: PCP Internal Medicine; Visit Provider Internal Medicine
DX: Z12.31 Encounter for screening mammogram for malignant neoplasm of breast (principal)
CPT/HCPCS: 77063; 77067

== ENCOUNTER → 2024-07-29 12:15 | Outpatient (BNV) | payer MEDICAID, SELFPAY | PROVIDERS: PCP Internal Medicine; Visit Provider Internal Medicine | DX: Z12.31 Encounter for screening mammogram for malignant neoplasm of breast (principal) | CPT/HCPCS: 77063; 77067 ==

== ENCOUNTER 2024-08-17 11:10 | Outpatient (REF) | payer MEDICAID, SELFPAY ==
--- NOTE | ~2024-08-17 | US_ITS ---
EXAMINATION: US PELVIS TRANSABDOMINAL AND TRANSVAGINAL HISTORY: D25.9 - Leiomyoma of uterus, unspecified COMPARISON: Comparison is made with the prior examination dated 01/09/2024. TECHNIQUE: Transabdominal and endovaginal real-time 2D sosa-scale ultrasound was performed. FINDINGS: Uterus: The uterus is normal in size, measuring 8.6 x 4.7 x 4.8 cm. Myometrium has a normal echotexture. Again seen is a fundal fibroid measuring 2.1 x 2.2 x 1.7 cm (previously 1.8 x 2.1 x 1.3 cm) and a mid body fibroid measuring 2.1 x 1.9 x 2.0 cm (previously 3.5 x 3.2 x 2.6 cm). Endometrium: The endometrial stripe measures 4 mm in thickness. There are nabothian cysts in the cervix. Right ovary: The right ovary measures 1.8 x 1.1 x 1.3 cm. The right ovary is normal in size and echotexture. Left ovary: The left ovary measures 1.5 x 1.1 x 1.4 cm. The left ovary is normal in size and echotexture. Pelvic fluid: none. US/US pelvic and transvaginal IMPRESSION: Fibroid uterus as described. Electronically signed by: Sukhwinder Patel MD 08/17/2024 12:17 PM EDT
--- OUTSIDE RECORDS SUMMARY | 2024-08-17 12:57 | XMS_ITS | Encounter Summary ---
Author Organization [employer] Address [address] [facility] 7[address] [place] [address] Care Team Providers Care Crusher Operator Name Role Phone Chrissie Khan MD Primary Care Provider + Reason for Visit * Reason Onset Date Comments Med Refill 01/16/2023 Encounter Details Date Type Department Care Team (Late st Contact Info) Description 01/16/2023 Refill [facility] [address] [place], [place] [phone] Chrissie Khan MD [address] [place] [address] Chronic low back pain, unspecified back pain [...] Description 09/25/2024 11:45 AM EDT Office Visit [facility] [address] [place] [address] Chrissie Khan MD [address] [place] [address] documented as of this encounter Visit Diagnoses Diagnosis Chronic low back pain, unspecified back pain laterality, unspecified whether sciatica present documented in this encounter Additional Health Concerns Assessment Noted Time PHQ-9 Depression Total Score: 0 05/03/19 23 8:59 AM EST documented as of this encounter Care Teams Crusher Operator Relationship Specialty Start Date End Date Chrissie Khan MD [address] [place] [phone] PCP - General Internal Medicine 03/23/22 documented as of this encounter
--- OUTSIDE RECORDS SUMMARY | 2024-08-17 12:57 | XMS_ITS | Clinical Summary ---
Author Organization [employer] Address 75 [facility] 7t [place] [address] Care Team Providers Care Election Assistant Name Role Phone Chrissie Khan MD Primary [...] 8-12 HOURS NEEDED FOR PAIN/FEVER 90 tablet Active ergocalciferol (Vitamin D2) 1.25 MG (91608 UT) capsule TAKE 1 CAPSULE BY MOUTH [...] per day. 90 tablet 025 2024 Discontinued Active Problems Problem Noted Date Diagnosed Date [...] life style modifications, diet and referral to loan documentation specialist. Recommended to decrease soda and sugary [...] Rx for her own BP machine to cone picker at pharmacy Continue lisinopril 5mg Counseled re low salt diet/increase moderate physical activity. Check home BP BIW and prn CP/MARTINEZ/ASIF Non smoking patient. Fu w me in 4-5 wks Non-healing skin lesion 08/02/2022 Assessment & Plan (08/02/2022 11:51 AM EDT): On right gnosticist. Refer to dermatology Tubular adenoma of colon [...] Plan (08/02/2022 12:29 PM EDT): Follwed by ANIMAL PHYSIOLOGY TEACHER FU results of endometrial biopsy + pelvic US Assessment & Plan (05/03/2022 9:27 AM EST): She was never seen by ANIMAL PHYSIOLOGY TEACHER apparently. -We will check with ANIMAL PHYSIOLOGY TEACHER to reschedule appointment. Lateral epicondylitis 03/15/2022 Primary [...] to complete 3 months and FU with ANIMAL PHYSIOLOGY TEACHER FU with me in 6 months Assessment & Plan (05/03/2022 9:28 AM EST): Her last hemoglobin was wnl. She has continued on iron once a day due to iron deficiency. -Continue iron supplementation until 08/02/22 and fu with me in 3 months to check hemoglobin. -reconsider ANIMAL PHYSIOLOGY TEACHER referral if she continues with DUB. Menorrhagia 11/13/2012 Assessment & Plan (07/18/2023 2:42 PM EDT): Resolved, s/p endometrial biopsy 2022 Seems to be having perimenopausal changes, Fu w/ ANIMAL PHYSIOLOGY TEACHER Hemoglobin remains stable, can DC iron supplementation Assessment & Plan (06/13/2023 12:00 PM EST): Resolved, pt is perimenopausal Continue iron supplementation to complete 3 m Fu PRN Assessment & Plan (03/14/2023 12:11 PM EST): Resolved s/p endo biopsy + provera, pt may be menopausal now Reassurance given recent nl cheri FU w/ ANIMAL PHYSIOLOGY TEACHER Assessment & Plan (08/02/2022 12:28 PM EDT): Pt with perimenopause, now oligomenorrhea FU with ANIMAL PHYSIOLOGY TEACHER Resolved Problems Problem Noted Date Diagnosed Date Resolved Date Acute back pain with sciatica 03/15/2022 07/18/2023 Centipede bite 03/15/2022 07/18/2023 Prehypertension 03/15/2022 06/13/2023 Tinea corporis 03/15/2022 07/18/2023 Foreign body in vagina 03/06/201707/17 Encounters Date Type Department Care Team Description 08/17/2024 Orders Only [facility] CHC MED & PEDS [address] [place], [place] [phone] Provider, MD Lisa 07/29/2024 Orders Only [facility] MEDICINE [address] [place] [address] Chrissie Khan MD 07/24/2024 Refill [facility] MEDICINE [address] [place] [address] Chrissie Khan MD 06/26/2024 11:20 AM EDT Office Visit [facility] WALK[facility]IN [facility]ENTER [address] [place] [address] Katelyn Grant MD Right otitis media, unspecified otitis media type (Primary Dx) 06/26/2024 Telephone [facility] MEDICINE [address] [place] [address] Chrissie Khan MD Gena recall 06/26/2024 Travel 06/26/2024 Population Health Risk Score [facility] Department [address] [phone] Provider, Population Health Generic 06/26/2024 Telephone [facility] MEDICINE [address] [place] [address] Chrissie Khan MD Nurse Triage 05/23/2024 Refill [facility] MEDICINE [address] [place] [address] Name, MD Ryan Chronic low back pain, unspecified back pain laterality, unspecified whether sciatica present 05/23/2024 Refill [facility] MEDICINE [address] [place] [address] Chrissie Khan MD Acute back pain with [...] preservative free 01/17/2024 Pfizer Covid-19 Vaccine 12+ 05/23/2021, 1,08/11/2020 TD (adult), 2 Lf tetanus tox oid, [...] Description 09/25/2024 11:45 AM EDT Office Visit [facility] MEDICINE [address] [place] [address] Chrissie Khan MD [address] [place] [address] Health Maintenance Due Date Last Done Comments CT Colonography 1971 FIT DNA/Cologuard 1971 FIT 1971 FOBT 1970 Sigmoidoscopy 1970 Pneumococcal Vaccine: 50+ Years (1 of 1 - PCV) 2021 Zoster Vaccines (1 of 2) 2021 COVID-19 Vaccine ( - season) 2023 02/21/2023, 05/23/2021, 09/01/2020, Additional history exists Depression Screening 06/12/2024 06/13/2023, 05/03/19 23 Alcohol/Substance Use Screening 01/16/2025 01/17/2024 SDOH Screening 04/17/2025 04/17/2024 Pap Smear 06/11/2025 06/11/2022 Tobacco Screening 06/26/2025 06/26/2024 Mammogram 07/29/2025 07/29/2024, 05/16, 05/23/2022, Additional history exists Colonoscopy 08/02/2025 08/02/2022 Colorectal Cancer Screening 08/02/2025 Cervical Cancer Screening 06/11/2027 HPV/Cotest 06/11/2027 06/11/2022, [...] Procedure Name Priority Date/Time Associated Diagnosis Comments US PELVIS TRANSVAGINAL Routine 08/17/2024 11:19 AM EDT BI MAMMOGRAM SCREENING TOMOSYNTHESIS BILATERAL Routine 07/29/2024 12:10 PM EDT POCT RAPID STREP A Routine 06/26/2024 12 :44 PM EDT Right otitis media, unspecified otitis media type LIPID PANEL WITH REFLEX TO DIRECT LDL Routine 04/10/2024 10:58 AM EST Primary hypertension HM COLONOSCOPY Routine 08/02/2022 8:43 AM EDT HPV MRNA E6/E7 REFLEX TO HPV 16, 18/45 Routine 06/11/2022 11:52 AM EST PAP SMEAR Routine 06/11/2022 11:52 AM EST HEPATITIS C AB W/REFL TO HCV RNA, QN, PCR Routine 05/01/2013 8:50 AM EST HIV 1/2 ANTIGEN AND ANTIBODY (EXTERNAL RESULTS ONLY) Routine 05/01/2013 8:50 AM EST from Last 3 Months or Most Recently Relevant to Health Maintenance Results * US Pelvis Transvaginal (08/17/2024 11:19 AM EDT) Anatomical Region Laterality Modality Pelvis Ultrasound 08/17/2024 11:1 9 AM EDT Narrative 08/17/2024 12:20 PM EDT ? [facility] ?[address] ?[place] [address] ? Ultrasound Report ? Signed ? Patient: Rodriguez,Irene ?MR#: [id number] ?? [id number] ? : 1970 ?Acct:[id number] ? Age/Sex: 54 / F ?ADM Date: 08/17/24 ? Loc: HO.US ? Attending Dr: Juan Bland MD ? Ordering Physician: Juan Bland MD ?? Date of Service: 08/17/24 ?? Procedure(s): US pelvic and transvaginal ?? Accession Number(s): [id number] ? cc: Chrissie Khan MD; Juan Bland MD ? EXAMINATION: ??US PELVIS TRANSABDOMINAL AND TRANSVAGINAL ? HISTORY: D25.9 - Leiomyoma of uterus, unspecified ? COMPARISON: Comparison is made with the prior examination dated ?? 01/09/2024. ? TECHNIQUE: ? Transabdominal and endovaginal real-time 2D sosa-scale ultrasound was ?? performed. ? FINDINGS: ? Uterus: ??The uterus is normal in size, measuring 8.6 x 4.7 x 4.8 cm. ? Myometrium has a normal echotexture. ??Again seen is a fundal fibroid ?? measuring 2.1 x 2.2 x 1.7 cm (previously 1.8 x 2.1 x 1.3 cm) and a mid ?? body fibroid measuring 2.1 x 1.9 x 2.0 cm (previously 3.5 x 3.2 x 2.6 ?? cm). ? Endometrium: ??The endometrial stripe measures 4 mm in thickness. There ?? are nabothian cysts in the cervix. ? Right ovary: ??The right ovary measures 1.8 x 1.1 x 1.3 cm. ??The right ?? ovary is normal in size and echotexture. ? Left ovary: ?? The left ovary measures 1.5 x 1.1 x 1.4 cm. ??The left ?? ovary is normal in size and echotexture. ? Pelvic fluid: none. ? US/US pelvic and transvaginal ?? IMPRESSION: ?? Fibroid uterus as described. ? Electronically signed by: ??Sukhwinder Patel MD ??08/17/2024 12:17 PM EDT ?? RP ? Dictated By: ?Sukhwinder Patel MD ? Signed By: ?<Electronically signed by Sukhwinder Patel MD in OV> ?08/17/247 ? DD/ 1119 ? TD/TT: 08/17/24 1158 ? Interior Wall Assembler: ? Procedure Note Dondoter, Image - 08/17/2024 [place] [address] Ultrasound Report Signed Patient: Irene RodriguezMR#: [id number] : 1970Acct:[id number] Age/Sex: 54 / FADM Date: 08/17/24 Loc: HO.US Attending Dr: Juan Bland MD Ordering Physician: Juan Bland MD Date of Service: 08/17/24 Procedure(s): US pelvic and transvaginal Accession Number(s): [id number] cc: Chrissie Khan MD; Juan Bland MD EXAMINATION: US PELVIS TRANSABDOMINAL AND TRANSVAGINAL HISTORY: D25.9 - Leiomyoma of uterus, unspecified COMPARISON: Comparison is made with the prior examination dated 01/09/2024. TECHNIQUE: Transabdominal and endovaginal real-time 2D sosa-scale ultrasound was performed. FINDINGS: Uterus: The uterus is normal in size, measuring 8.6 x 4.7 x 4.8 cm. Myometrium has a normal echotexture. Again seen is a fundal fibroid measuring 2.1 x 2.2 x 1.7 cm (previously 1.8 x 2.1 x 1.3 cm) and a mid body fibroid measuring 2.1 x 1.9 x 2.0 cm (previously 3.5 x 3.2 x 2.6 cm). Endometrium: The endometrial stripe measures 4 mm in thickness. There are nabothian cysts in the cervix. Right ovary: The right ovary measures 1.8 x 1.1 x 1.3 cm. The right ovary is normal in size and echotexture. Left ovary: The left ovary measures 1.5 x 1.1 x 1.4 cm. The left ovary is normal in size and echotexture. Pelvic fluid: none. US/US pelvic and transvaginal IMPRESSION: Fibroid uterus as described. Electronically signed by: Sukhwinder Patel MD 08/17/2024 12:17 PM EDT Dictated By: Sukhwinder Patel MD Signed By: <Electronically signed by Sukhwinder Patel MD in OV> 08/17/24 1217 DD/ 1119 TD/TT: 08/17/24 1158 Interior Wall Assembler: [facility] External Provider IMG US PROCEDURES Final Result * BI Mammogram Screening Tomosynthesis Bilateral (07/29/2024 12:10 PM EDT) Anatomical Region Laterality Modality Breast Bilateral Mammography 07/29/2024 12:1 0 PM EDT Narrative 08/08/2024 2:36 PM EDT ? [facility] [place] ? [address] [facility] ?[place] [address] ?[phone] ? Mammography Report ? Signed ? Patient: Rodriguez,Irene ?MR#: [id number] ?? [id number] ? : 1970 ?Acct:[id number] ? Age/Sex: 54 / F ?ADM Date: 04/16/25 ? Loc: HO.MAMMO ? Attending Dr: Chrissie Khan MD ? Ordering Physician: Chrissie Khan MD ?Results: 1Ne ?? gative ? Date of Service: 07/29/24 ?Follow Up: 1 Year From Orig ?? inal Mammogram ? Procedure(s): MM tomosynthesis screening BI ?? Accession Number(s): [id number] ? cc: Chrissie Khan MD ? EXAMINATION: ?? MM SCREENING DIGITAL BREAST TOMOSYNTHESIS, BILATERAL ? CLINICAL INFORMATION: ? Screening. Asymptomatic. ? COMPARISON: ?? Mammography: Comparison is made with available priors ? TECHNIQUE: ?? Digital breast mammography with tomosynthesis is performed in both the ?? craniocaudal and mediolateral oblique views along with computer-aided ?? detection (CAD). ? FINDINGS: ?? There are scattered areas [...] due date for their next mammogram. ? Electronically signed by: ??Elyssa Christensen DO ??08/08/2024 02:33 PM EDT ?? RP ? Dictated By: ?Elyssa Christensen DO ? Signed By: ?<Electronically signed by Elyssa Christensen, DO in OV> ? 08/08/24 1433 ? DD/ 1210 ? TD/TT: 07/29/24 1221 ? Interior Wall Assembler: ? Procedure Note Donotuseinterpreter, Image - 08/08/2024 [facility] [address] [place] [address] Mammography Report Signed Patient: Irene RodriguezMR#: [id number] : 1970Acct:[id number] Age/Sex: 54 / FADM Date: 07/29/24 Loc: HO.MAMMO Attending Dr: Chrissie Khan MD Ordering Physician: Chrissie Khan MDResults: 1Ne gative Date of Service: 07/29/24Follow Up: 1 Year From Orig inal Mammogram Procedure(s): MM tomosynthesis screening BI Accession Number(s): [id number] cc: Chrissie Khan MD EXAMINATION: MM SCREENING DIGITAL BREAST TOMOSYNTHESIS, BILATERAL CLINICAL INFORMATION: Screening. Asymptomatic. COMPARISON: Mammography: Comparison is made with available priors TECHNIQUE: Digital breast mammography with tomosynthesis is performed in both the craniocaudal and mediolateral oblique views along with computer-aided detection (CAD). FINDINGS: There are scattered areas of fibroglandular [...] target due date for their next mammogram. Electronically signed by: Elyssa Christensen DO 08/08/2024 02:33 PM EDT Dictated By: Elyssa Christensen DO Signed By: <Electronically signed by Elyssa Christensen DO in OV> 08/08/24 1433 DD/ 1210 TD/TT: 07/29/24 1221 Interior Wall Assembler: us Chrissie Khan MD IMG BI PROCEDURES Edited Result - Final * POCT rapid strep A manually resulted (06/26/2024 12:44 PM EDT) [facility] Rapid Strep A Screen Negative Negative, None Detected Swab 06/26/2024 12:4 4 PM EDT Katelyn Grant MD POINT OF CARE TEST ENTER/EDIT ORDERABLES Final Result * Lipid Panel with Reflex to Direct LDL (04/10/2024 10:58 AM EST) [facility] Triglycerides 80 <150 mg/dL [facility] Comment:Desirable Triglyceri de: less than 150 mg/dLBorderline High Triglyceride 150-199 mg/dLHigh Triglyceride: 200-499 mg/dLVery High Triglyceride: greater than or equal to 5OO mg/dL Cholesterol 156 <200 mg/dL [facility] Comment:Desirable Cholestero l: less than 200 mg/dLBorderline High Cholesterol: 200-239 mg/dLHigh Cholesterol: greater than 239 mg/dL LDL Cholesterol Calculated 94 <100 mg/dL [facility] Comment:Desirable LDL: less than 100 mg/dLNear Optimal/Above Optimal LDL: 110- 129 mg/dLBorderline High LDL: 130-159 mg/dLHigh LDL: 160-189 mg/dLVery High LDL: greater than or equal to 190 mg/dL HDL Cholesterol 46 >40 mg/dL [facility] Comment:Desirable HDL: great er than 40 mg/dL Note: This HDL assay may give artificially low results in patients with liver disease. Blood 04/10/2024 10:5 8 AM EST 04/10/2024 11:35 AM EST Chrissie Khan MD LAB BLOOD ORDERABLES Fin al Result [facility] [address] [place] [phone] * Hm Colonoscopy (08/02/2022 8:43 AM EDT) Colonoscopy Normal Normal Narrative Malissa Pedraza - 08/02/2022 8:43 AM EDT Recommended 5 year follow up ( see Historical Provider HEALTH MAINTENANCE Edited Result - Final * HPV mRNA E6/E7 w/Reflex to HPV Genotypes 16, 18/45 (06/11/2022 11:52 AM EST) HPV nRNA E6/E7 Not Detected Not Detected [facility] Comment:Methodology: Transcr iption-Mediated AmplificationThis assay detects E6/E7 viral messenger RNA (mRNA) from 14high-risk HPV types (16,18,31,33,35,39,45,51,52,56,58,59,66,68).Cervical sources are required for HPV testing.If a vaginal source from a patient who has had atotal hysterectomy with removal of cervix wassubmitted, please contact the testing laboratoryfor alternative testing options.For additional information, please refer tohttp://education.[employer]/faq/HYC777x0(This link if provided for information/educational purposes only.)THIS TEST WAS PERFORMED AT:[facility] [place] [phone] ROBLEDO MD HPV mRNA E6/E7 [facility] HPV 16 RNA [facility] HPV 18/45 RNA [facility] 06/11/2022 11:5 2 AM EST 06/11/2022 12:00 PM EST [facility] External Provider LAB CYT OLOGY ORDERABLES Final Result [facility] [address] [place], [place] [phone] * Pap Smear (06/11/2022 11:52 AM EST) 06/11/2022 11:5 2 AM EST 06/11/2022 12:00 PM EST Narrative [facility] - 06/17/2022 3:42 PM EST ----- ------- Name: Irene Rodriguez ?Age/Sex: 52/F ? : 1970 Unit#: [id number] ?? Attend Dr: Juan Bland MD ?Re06/11/22 ?Status: DEP REF ? Location: HO.LNP ?Disch: ? ----- ------- SPEC : [id number] ? RECD: 06/11/22-1200 ? STATUS: ??SOUT ? REQ NUM: [id number] ? CHLOE: 06/11/22-1152 ? SUBM DR: Juan Bland MD ? ENTERED: ??06/12/22-5525 ?SP TYPE: Pap Smr ?OTHR DR: Chrissie [...] 66, 68) ? HPV testing performed by [facility], [place], [place]. ??See reference laboratory ?? portion of the EMR for entire report. ?Clinical Information LMP: 05/17/2022 Previous PAP test: Unknown ? Material Received ?? ThinPrep-Cervical Copies To: ?? Chrissie Khan MD ?? [address] [facility] ?? [place] [id number] ? Juan Bland MD ?? [address] [facility] [address] [place] [facility] ?? [place] [address] ?? [phone] ----- ------- Signed (signature on file) Cheyanne Haque 06/17/22 1542 ? ----- ------- ? END OF REPORT ? [facility] External Provider LAB CYT OLOGY ORDERABLES Final Result [facility] [address] [place] [address] [phone] * HIV 1/2 ANTIGEN AND ANTIBODY (EXTERNAL [...] Most Recently Relevant to Health Maintenance [place] [address] [place] [address] C3 H[employer] FULL Care Teams Election Assistant Relationship Specialty Start Date End Date Chrissie Khan MD [address] [place] [phone] PCP - General Internal Medicine 03/23/22
--- OUTSIDE RECORDS SUMMARY | 2024-08-17 12:57 | XMS_ITS | Encounter Summary ---
Author Organization [employer] Address 75 [facility] 7t [place] [address] Care Team Providers Care Airplane Captain Name Role Phone Chrissie Khan MD Primary Care Provider + Reason for Visit * Reason Comments Med Refill Encounter Details Date Type Department Care Team (Late st Contact Info) Description 07/01/2022 Refill [facility] CHC MED & PEDS [address] [place], [place] [phone] Chrissie Khan MD [address] [place] [address] Iron deficiency anemia due to chronic blood [...] Description 09/25/2024 11:45 AM EDT Office Visit [facility] MEDICINE [address] [place] [address] Chrissie Khan MD [address] [place] [address] documented as of this encounter Visit Diagnoses Diagnosis Iron deficiency anemia due to chronic blood loss Iron deficiency anemia secondary to blood loss (chronic) documented in this encounter Additional Health Concerns Assessment Noted Time PHQ-9 Depression Total Score: 0 05/03/19 23 8:59 AM EST documented as of this encounter Care Teams Airplane Captain Relationship Specialty Start Date End Date Chrissie Khan MD [address] [place] [address] PCP - General Internal Medicine 03/23/22 documented as of this encounter
--- OUTSIDE RECORDS SUMMARY | 2024-08-17 12:57 | XMS_ITS | Encounter Summary ---
Author Organization [email or web address] Address 75 [facility] 7t [place] [address] Care Team Providers Care Back Shoe Operator Name Role Phone Chrissie Khan MD Primary Care Provider + Reason for Visit * Reason Onset Date Comments Appointment Request 02/06/2023 Encounter Details Date Type Department Care Team (Late st Contact Info) Description 02/06/2023 Telephone [facility] MEDICINE [address] [place], [place] [phone] Chrissie Khan MD [address] [place] [address] Appointment Request Social History Tobacco Use Types [...] Tc from pt requesting a OV appt fiction writer schedule pt for 03/14 however pt will like an appt before. Any questions contact pt in ukrainian. documented in this encounter Plan of Treatment Upcoming Encounters Date Type Department Care Team (Late st Contact Info) Description 09/25/2024 11:45 AM EDT Office Visit [facility] MEDICINE [address] [place] [phone] Chrissie Khan MD [address] [place] [phone] documented as of this encounter Visit Diagnoses Not on filedocumented in this encounter Additional Health Concerns Assessment Noted Time PHQ-9 Depression Total Score: 0 05/03/19 23 8:59 AM EST documented as of this encounter Care Teams Back Shoe Operator Relationship Specialty Start Date End Date Chrissie Khan MD [address] [place] [phone] PCP - General Internal Medicine 03/23/22 documented as of this encounter
--- OUTSIDE RECORDS SUMMARY | 2024-08-17 12:57 | XMS_ITS | Encounter Summary ---
Author Organization [employer] Address [address] [facility] 7t [place] [address] Care Team Providers Care Distribution Coordinator Name Role Phone Chrissie Khan MD Primary Care Provider + Reason for Visit * Reason Comments Med Refill Encounter Details Date Type Department Care Team (Late st Contact Info) Description 11/16/2023 Refill [facility] MEDICINE [address] [place], [place] [phone] Chrissie Khan MD [address] [place] [address] Acute back pain with sciatica, unspecified laterality [...] Description 09/25/2024 11:45 AM EDT Office Visit [facility] MEDICINE [address] [place] [address] Chrissie Khan MD [address] [place] [address] documented as of this encounter Visit Diagnoses Diagnosis Acute back pain with sciatica, unspecified laterality documented in this encounter Additional Health Concerns Assessment Noted Time PHQ-9 Depression Total Score: 0 05/03/19 23 8:59 AM EST documented as of this encounter Care Teams Distribution Coordinator Relationship Specialty Start Date End Date Chrissie Khan MD [address] [place] [phone] PCP - General Internal Medicine 03/23/22 documented as of this encounter
--- OUTSIDE RECORDS SUMMARY | 2024-08-17 12:57 | XMS_ITS | Encounter Summary ---
Author Organization [employer] Address 75 [facility] 7t [place] [address] Care Team Providers Care Technology Education Teacher Name Role Phone Chrissie Khan MD Primary Care Provider + Encounter Details Date Type Department Care Team (Late st Contact Info) Description 08/02/2022 Abstract [facility] MEDICINE [address] [place] [address] Chrissie Khan MD [address] [place] [address] Social History Tobacco Use Types Packs/Day Years [...] 09/25/2024 11:45 AM EDT Office Visit [facility] MEDICINE [address] [place] [address] Chrissie Khan MD [address] [place] [address] documented as of this encounter Procedures Procedure Name Priority Date/Time Associated Diagnosis Comments HIV 1/2 ANTIGEN AND ANTIBODY (EXTERNAL RESULTS ONLY) Routine 05/01/2013 8:50 AM EST documented in this encounter Results * HIV 1/2 ANTIGEN AND ANTIBODY (EXTERNAL RESULTS ONLY) (05/01/2013 8:50 AM EST) HIV Ag/Ab Nonreactive 05/01/2013 8:50 AM EST Vivek Zimmerman PHYSICAL THERAPY RESIDENT LAB POINT OF CARE TE ST DOCKED DEVICE UNSOLICITED RESULTS Final Result documented in this encounter Visit Diagnoses Not on filedocumented in this encounter Additional Health Concerns Assessment Noted Time PHQ-9 Depression Total Score: 0 05/03/19 23 8:59 AM EST documented as of this encounter Care Teams Technology Education Teacher Relationship Specialty Start Date End Date Chrissie Khan MD [address] [place] [address] PCP - General Internal Medicine 03/23/22 documented as of this encounter
--- OUTSIDE RECORDS SUMMARY | 2024-08-17 12:57 | XMS_ITS | Encounter Summary ---
Author Organization [employer] Address 75 [facility] 7t [place] [address] Care Team Providers Care Seismograph Operator Helper Name Role Phone Chrissie Khan MD Primary Care Provider + Reason for Visit * Reason Comments Med Refill Encounter Details Date Type Department Care Team (Late st Contact Info) Description 05/23/2024 Refill [facility] MEDICINE [address] [place], [place] [phone] Name, MD Ryan [address] [place] [address] Chronic low back pain, unspecified back pain [...] Description 09/25/2024 11:45 AM EDT Office Visit [facility] MEDICINE [address] [place] [address] Chrissie Khan MD [address] [place] [phone] documented as of this encounter Visit Diagnoses Diagnosis Chronic low back pain, unspecified back pain laterality, unspecified whether sciatica present documented in this encounter Additional Health Concerns Assessment Noted Time PHQ-9 Depression Total Score: 0 05/03/19 23 8:59 AM EST documented as of this encounter Care Teams Seismograph Operator Helper Relationship Specialty Start Date End Date Chrissie Khan MD [address] [place] [phone] PCP - General Internal Medicine 03/23/22 documented as of this encounter
--- OUTSIDE RECORDS SUMMARY | 2024-08-17 12:57 | XMS_ITS | Encounter Summary ---
Author Organization [employer] Address [address] [facility] 7t [place] [address] Care Team Providers Care Switchboard Manager Name Role Phone Chrissie Khan MD Primary Care Provider + Chrissie Khan MD Primary Care Provider + Encounter Details Date Type Department Care Team (Late st Contact Info) Description 03/16/2022 Telephone [facility] [address] [place] [address] [phone] Chrissie Khan MD [address] [place] [address] [phone] Social History Tobacco Use Types Packs/Day Years [...] Description 09/25/2024 11:45 AM EDT Office Visit [facility] [address] [place] [address] [phone] Chrissie Khan MD [address] [place], [place] [phone] documented as of this encounter Visit Diagnoses Not on filedocumented in this encounter Care Teams Switchboard Manager Relationship Specialty Start Date End Date Chrissie Khan MD [address] [place] [phone] PCP - General Family Medicine 11/28/16 03/22/22 Chrissie Khan MD [address] [place] [phone] PCP - General Internal Medicine 03/23/22 documented as of this encounter
--- OUTSIDE RECORDS SUMMARY | 2024-08-17 12:57 | XMS_ITS | Encounter Summary ---
Author Organization [employer] Address 75 [facility] 7t [place] [address] Care Team Providers Care Therapy Assistant Name Role Phone Chrissie Khan MD Primary Care Provider + Encounter Details Date Type Department Care Team (Late st Contact Info) Description 08/17/2024 Orders Only [facility] MED & PEDS [address] [place] [address] ProviderLisa MD Social History Tobacco Use Types Packs/Day Years [...] Description 09/25/2024 11:45 AM EDT Office Visit [facility] MEDICINE [address] [place], [place] [phone] Chrissie Khan MD 230 [place] [address] documented as of this encounter Procedures Procedure Name Priority Date/Time Associated Diagnosis Comments US PELVIS TRANSVAGINAL Routine 08/17/2024 11:19 AM EDT HM COLONOSCOPY Routine 08/02/2022 8:43 AM EDT documented in this encounter Results * US Pelvis Transvaginal (08/17/2024 11:19 AM EDT) Anatomical Region Laterality Modality Pelvis Ultrasound 08/17/2024 11:1 9 AM EDT Narrative 08/17/2024 12:20 PM EDT ? [facility] [facility] ?[address] ?[place] [address] ? Ultrasound Report ? Signed ? Patient: Rodriguez,Irene ?MR#: [id number] ? : 1970 ?Acct:[id number] ? Age/Sex: 54 / F ?ADM Date: 08/17/24 ? Loc: HO.US ? Attending Dr: Juan Bland MD ? Ordering Physician: Juan Bland MD ?? Date of Service: 08/17/24 ?? Procedure(s): US pelvic and transvaginal ?? Accession Number(s): [id number] ? cc: Chrissie Khan MD; Juan Bland [...] signed by Sukhwinder Patel MD in OV> ?/09/06 1217 ? DD/ 1119 ? TD/TT: 08/17/24 1158 ? Food Or Baggage Handling Rampman: ? Procedure Note Donotuseinterpreter, Image - 08/17/[address] [address] Ultrasound Report Signed Patient: Irene RodriguezMR#: [id number] : 1970Acct:[id number] Age/Sex: 54 / FADM Date: 08/17/24 Loc: HO.US Attending Dr: Juan Bland MD Ordering Physician: Juan Bland MD Date of Service: 08/17/24 Procedure(s): US pelvic and transvaginal Accession Number(s): [id number] cc: Chrissie Khan MD; Juan Bland MD [...] Sukhwinder Patel MD 08/17/2024 12:17 PM EDT RP Dictated By: Sukhwinder Patel MD Signed By: <Electronically signed by Sukhwinder Patel MD in OV> 08/17/24 1217 DD/ 1119 TD/TT: 08/17/24 1158 Food Or Baggage Handling Rampman: [facility] External Provider IMG US PROCEDURES Final Result * Hm Colonoscopy (08/02/2022 8:43 AM EDT) Colonoscopy Normal Normal Narrative Malissa Pedraza - 08/02/2022 8:43 AM EDT Recommended 5 year follow up ( see Historical Provider HEALTH MAINTENANCE Edited Result - Final documented in this encounter Visit Diagnoses Not on filedocumented in this encounter Additional Health Concerns Assessment Noted Time PHQ-9 Depression Total Score: 0 05/03/19 23 8:59 AM EST documented as of this encounter Care Teams Therapy Assistant Relationship Specialty Start Date End Date Chrissie Khan MD [address] [place] [phone] PCP - General Internal Medicine 03/23/22 documented as of this encounter
--- OUTSIDE RECORDS SUMMARY | 2024-08-17 12:57 | XMS_ITS | Encounter Summary ---
Author Organization [employer] Address 75 [facility] 7t [place] [address] Care Team Providers Care Machine Sewer Name Role Phone Chrissie Khan MD Primary Care Provider + Reason for Visit * Reason Comments Med Refill Encounter Details Date Type Department Care Team (Late st Contact Info) Description 01/22/2023 Refill [facility] 230 [place], [place] [phone] Chrissie Khan MD 230 [place] [address] Acute back pain with sciatica, unspecified laterality [...] Description 09/25/2024 11:45 AM EDT Office Visit [facility] 230 [place] [address] Chrissie Khan MD [address] [place] [address] documented as of this encounter Visit Diagnoses Diagnosis Acute back pain with sciatica, unspecified laterality documented in this encounter Additional Health Concerns Assessment Noted Time PHQ-9 Depression Total Score: 0 05/03/19 23 8:59 AM EST documented as of this encounter Care Teams Machine Sewer Relationship Specialty Start Date End Date Chrissie Khan MD [address] [place] [phone] PCP - General Internal Medicine 03/23/22 documented as of this encounter
== END 2024-08-17 11:11 | disposition home or self-care (01) ==
LOC: HO.US 11:10
PROVIDERS: PCP Internal Medicine; Visit Provider Obstetrics & Gynecology
DX: D25.9 Leiomyoma of uterus, unspecified (principal)
CPT/HCPCS: 76830; 76856

== ENCOUNTER → 2024-08-17 11:19 | Outpatient (BNV) | payer MEDICAID, SELFPAY | PROVIDERS: PCP Internal Medicine; Visit Provider Radiology Diagnostic Radiology | DX: D25.9 Leiomyoma of uterus, unspecified (principal) | CPT/HCPCS: 76830; 76856 ==

== ENCOUNTER 2024-09-08 10:44 | Outpatient (AMB) | payer MEDICAID, SELFPAY ==
[2024-09-08 10:48] VITALS: BMI 30.8
--- NOTE | 2024-09-08 10:48 | MHC.OFFVIS ---
Vital Signs 09/08/24 10:48 Height 5 ft 6 in Weight 191 lb BMI 30.8 Intake Visit Reasons: US follow up Health Outreach Worker Required: Yes Health Outreach Worker Language: Shuttle Truck Driver Services: Health Outreach Worker Present Allergies No Known Allergies [No Known Allergies*] Allergy (Verified 02/17/24 08:50) HPI Comments Details: Presenting for ultrasound follow-up with no complaints no pelvic pressure or abnormal bleeding or pelvic pain. Pelvic ultrasound done on 08/17/2024 showed the following: Uterus: The uterus is normal in size, measuring 8.6 x 4.7 x 4.8 cm. Myometrium has a normal echotexture. Again seen is a fundal fibroid measuring 2.1 x 2.2 x 1.7 cm (previously 1.8 x 2.1 x 1.3 cm) and a mid body fibroid measuring 2.1 x 1.9 x 2.0 cm (previously 3.5 x 3.2 x 2.6 cm). Endometrium: The endometrial stripe measures 4 mm in thickness. There are nabothian cysts in the cervix. Right ovary: The right ovary measures 1.8 x 1.1 x 1.3 cm. The right ovary is normal in size and echotexture. Left ovary: The left ovary measures 1.5 x 1.1 x 1.4 cm. The left ovary is normal in size and echotexture. Pelvic fluid: none. 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 Sexual orientation: Straight/Heterosexual Gender identity: Female Review of Systems Const All systems reviewed & are unremarkable except as noted in HPI and below Reports as per HPI and Reports no additional complaints GI Reports no additional complaints Reports no additional complaints Physical Exam Vital Signs: BMI result Body Mass Index 30.8 Assessment & Plan Assessment & Plan (1) Uterine myoma: Code(s): D25.9 - Leiomyoma of uterus, unspecified Category: Medical Plan: Discussed with the patient the findings on pelvic ultrasound & the risk of myosarcoma; in addition reviewed with the patient that malignancy and pre malignancy cannot be ruled out without hysterectomy for pathological evaluation ; furthermore, explained to the patient the limitation of pelvic ultrasound and endometrial biopsy in the setting. Discussed with the patient the options of treatment including expectant management versus hysterectomy; the pros and cons, risks benefits of each approach were discussed with the patient including the fact that in cases of myosarcoma, surgical treatment can lead to early diagnosis and positively affects the prognosis; after further discussion, the patient decided to proceed with expectant management. Will repeat pelvic ultrasound periodically. Instructions given to patient to call in case any of the following occurs: pressure symptoms, abnormal uterine bleeding, pelvic pain; and to schedule a twelve months pelvic ultrasound (order placed) and a follow-up appointment . All questions answered, the patient verbalized understanding and agreed with the plan . Orders: Orders US pelvic and transvaginal 1 Year D25.9 - Leiomyoma of uterus, unspecified Coding Level of Care Code Est Pt Level 3 (18909) Diagnoses Uterine myoma D25.9
--- OUTSIDE RECORDS SUMMARY | 2024-09-08 11:30 | XMS_ITS | Encounter Summary ---
Author Organization [employer] Address [address] [facility] 7t [place] [address] Care Team Providers Care Shank Burnisher Name Role Phone Chrissie Khan MD Primary Care Provider + Reason for Visit * Reason Comments Med Refill Encounter Details Date Type Department Care Team (Late st Contact Info) Description 05/23/2024 Refill [facility] MED[facility]INE 230 [place], [place] [phone] Name, MD Ryan 230 [place] [address] Chronic low back pain, unspecified back pain [...] 11:45 AM EDT Office Visit [facility] [address] [place] [phone] Chrissie Khan MD [address] [place] [phone] documented as of this encounter Visit Diagnoses Diagnosis Chronic low back pain, unspecified back pain laterality, unspecified whether sciatica present documented in this encounter Additional Health Concerns Assessment Noted Time PHQ-9 Depression Total Score: 0 05/03/19 23 8:59 AM EST documented as of this encounter Care Teams Shank Burnisher Relationship Specialty Start Date End Date Chrissie Khan MD [address] [place] [phone] PCP - General Internal Medicine 03/23/22 documented as of this encounter
== END 2024-09-08 11:04 | disposition home or self-care (01) ==
LOC: HO.HWS 10:44
PROVIDERS: PCP Internal Medicine; Visit Provider Obstetrics & Gynecology
DX: D25.9 Leiomyoma of uterus, unspecified (principal)
CPT/HCPCS: 99213

== ENCOUNTER → 2024-09-08 10:44 | Outpatient (BNVA) | payer MEDICAID, SELFPAY | PROVIDERS: PCP Internal Medicine; Visit Provider Obstetrics & Gynecology | DX: D25.9 Leiomyoma of uterus, unspecified (principal) | CPT/HCPCS: 99212 ==

== ENCOUNTER 2024-10-09 13:08 | Outpatient (REF) | payer MEDICAID, SELFPAY ==
--- OUTSIDE RECORDS SUMMARY | 2024-10-09 13:42 | XMS_ITS | Encounter Summary ---
Author Organization [employer] Address [address] [facility] 7t [place] [address] Care Team Providers Care Aquatic Biologist Name Role Phone Chrissie Khan MD Primary Care Provider + Reason for Visit * Reason Comments Med Refill Encounter Details Date Type Department Care Team (Late st Contact Info) Description 05/23/2024 Refill [facility] MEDICINE 230 [place], [place] [phone] Name, MD Ryan 230 [place] [address] Chronic low back pain, unspecified back pain [...] Care Team (Late st Contact Info) Description 12/15/2024 9:45 AM EDT Office Visit [facility] MEDICINE [address] [place] [phone] Chrissie Khan MD [address] [place] [phone] documented as of this encounter Visit Diagnoses Diagnosis Chronic low back pain, unspecified back pain laterality, unspecified whether sciatica present documented in this encounter Additional Health Concerns Assessment Noted Time PHQ-9 Depression Total Score: 0 05/03/19 23 8:59 AM EST documented as of this encounter Care Teams Aquatic Biologist Relationship Specialty Start Date End Date Chrissie Khan MD [address] [place] [phone] PCP - General Internal Medicine 12/9/22 documented as of this encounter
[2024-10-09 16:59] LABS: Alanine Aminotransferase 27 U/L (0-31); Albumin Level 4.7 g/dL (3.5-5.0); Alkaline Phosphatase 85 U/L (39-117); Aspartate Amino Transferase 26 U/L (5-31); Bilirubin Direct 0.3 mg/dL (0.0-0.5); Bilirubin Total 0.8 mg/dL (0.0-1.0); Cholesterol 162 mg/dL (<200); HDL Cholesterol 41 mg/dL (>40); LDL Cholesterol Calculated 103 mg/dL (<100); Total Protein 7.4 g/dL (6.5-8.0); Triglycerides 91 mg/dL (<150)
[2024-10-09 17:05] LABS: TSH reflex Free T4 1.34 uIU/mL (0.32-4.0)
[2024-10-09 17:57] LABS: Reflex LDLD? No
== END 2024-10-09 13:09 | disposition home or self-care (01) ==
LOC: HO.HHCL 13:08
PROVIDERS: PCP Internal Medicine; Visit Provider Internal Medicine
DX: I10 Essential (primary) hypertension (principal)
CPT/HCPCS: 36415; 80061; 80076; 84443

== ENCOUNTER 2025-01-07 15:33 | Outpatient (REF) | payer MEDICAID, SELFPAY ==
--- NOTE | ~2025-01-07 | US_ITS ---
EXAMINATION: US PELVIS CLINICAL INFORMATION: Follow-up fibroids COMPARISON: August 17, 2024 TECHNIQUE: Ultrasound of the pelvis is performed using both transabdominal and transvaginal transducers along with Doppler. Transvaginal imaging is performed due to inadequate visualization transabdominally. FINDINGS: Uterus: The uterus is anteverted and measures 9.4 x 4.6 x 4.1 cm. The double wall endometrial thickness is 3 mm. The uterus i demonstrates heterogeneous echogenicity. Two leiomyomas are identified. Intramural, contacting submucosal in the anterior fundal region measured 2.0 x 2.1 x 2.0 cm previously 2.1 x 2.2 x 1.7 cm. Intramural and subserosal in the anterior fundus measures 1.2 x 1.2 x 1.1 cm previously 2.1 x 1.9 x 2.0 cm. Adnexa: Both ovaries are visualized. There is normal color flow to the adnexa. There is no ovarian torsion. There is no pelvic ascites or fluid collection. Right ovary measures 1.5 x 1.3 x 1.2 cm. Left ovary measures 2.9 x 1.0 x 1.2 cm. US/US pelvic and transvaginal IMPRESSION: Fibroid uterus, no interval growth. Electronically signed by: Roddy Chery MD 01/07/2025 04:23 PM EDT
--- OUTSIDE RECORDS SUMMARY | 2025-01-07 19:38 | XMS_ITS | Encounter Summary ---
Author Organization [employer] Address [address] [facility] 7t [place] [address] Care Team Providers Care Hand Launderer Name Role Phone Chrissie Khan MD Primary Care Provider + Reason for Visit * Reason Comments Med Refill Encounter Details Date Type Department Care Team (Late st Contact Info) Description 01/22/2023 Refill [facility] MEDICINE 230 [place] [address] Chrissie Khan MD 230 [place] [address] Acute back pain with sciatica, unspecified laterality [...] as of this encounter Plan of Treatment Not on file documented as of this encounter Visit Diagnoses Diagnosis Acute back pain with sciatica, unspecified laterality documented in this encounter Additional Health Concerns Assessment Noted Time PHQ-9 Depression Total Score: 0 05/03/19 23 8:59 AM EST documented as of this encounter Care Teams Hand Launderer Relationship Specialty Start Date End Date Chrissie Khan MD [address] [place] [address] PCP - General Internal Medicine 03/23/22 documented as of this encounter
--- OUTSIDE RECORDS SUMMARY | 2025-01-07 19:38 | XMS_ITS | Encounter Summary ---
Author Organization [employer] Address [address] [facility] 7t [place] [address] Care Team Providers Care Plow Shaker Name Role Phone Chrissie Khan MD Primary Care Provider + Reason for Visit * Reason Onset Date Comments Appointment Request 02/06/2023 Encounter Details Date Type Department Care Team (Late st Contact Info) Description 02/06/2023 Telephone [facility] MEDICINE 230 [place], [place] [phone] Chrissie Khan MD 230 [place] [address] Appointment Request Social History Tobacco Use Types Packs/Day Years Used Date Smoking Tobacco: Never Passive Smoke Exposure: Never Smokeless Tobacco: Never Alcohol Use Standard Drinks/Week Comments Not Currently 0 (1 standard drink = 0.6 oz pur e alcohol) Depression Answer Date Recorded Patient Health Questionnaire-9 Score 0 05/03/2022 Housing Stability Answer Date Recorded What is your housing situation today? I have [employer] justice 02/06/[address] you li [...] Tc from pt requesting a OV appt show card writer schedule pt for 03/14 however pt will like an appt before. Any questions contact pt in polish. documented in this encounter Plan of Treatment Not on file documented as of this encounter Visit Diagnoses Not on filedocumented in this encounter Additional Health Concerns Assessment Noted Time PHQ-9 Depression Total Score: 0 05/03/19 23 8:59 AM EST documented as of this encounter Care Teams Plow Shaker Relationship Specialty Start Date End Date Chrissie Khan MD [address] [place] [phone] PCP - General Internal Medicine 03/23/22 documented as of this encounter
--- OUTSIDE RECORDS SUMMARY | 2025-01-07 19:38 | XMS_ITS | Encounter Summary ---
Author Organization [employer] Address 75 [facility] 7t [place] [address] Care Team Providers Care Prepress Proofer Name Role Phone Chrissie Khan MD Primary Care Provider + Reason for Visit * Reason Onset Date Comments Med Refill 01/16/2023 Encounter Details Date Type Department Care Team (Late st Contact Info) Description 01/16/2023 Refill [facility] 230 [place], [place] [phone] Chrissie Khan MD 230 [place] [address] Chronic low back pain, unspecified back pain [...] documented as of this encounter Care Teams Prepress Proofer Relationship Specialty Start Date End Date Chrissie Khan MD 230 [place] [address] PCP - General Internal Medicine 03/23/22 documented as of this encounter
--- OUTSIDE RECORDS SUMMARY | 2025-01-07 19:38 | XMS_ITS | Encounter Summary ---
Author Organization [employer] Address 75 [facility] 7t [place] [address] Care Team Providers Care Program Proposals Coordinator Name Role Phone Chrissie Khan MD Primary Care Provider + Encounter Details Date Type Department Care Team (Late st Contact Info) Description 08/17/2024 Orders Only [facility] CH[facility] MED & PEDS [address] [place] [address] Provider, MD Lisa Social History Tobacco Use Types Packs/Day Years [...] as of this encounter Miscellaneous Notes * Result Encounter Note - Chrissie Khan MD - 08/17/2024 8:43 AM EDT Pelvic ultrasound on 08/17/2024 showed patient with uterine fibroids, apparently seen by BOW MAKER MACHINE TENDER for follow-up. Please call patient and explain results, tell her that fibroids are usually a benign condition but she needs to follow-up with BOW MAKER MACHINE TENDER in case she needs additional treatment, sometimes surgical, most of the times they do not need any treatment. documented in this encounter Plan of Treatment Not on file documented as of this encounter Procedures Procedure Name Priority Date/Time Associated Diagnosis Comments US PELVIS TRANSVAGINAL Routine 08/17/2024 11:19 AM EDT HM COLONOSCOPY Routine 08/02/2022 8:43 AM EDT documented in this encounter Results * US Pelvis Transvaginal (08/17/2024 11:19 AM EDT) Anatomical Region Laterality Modality Pelvis Ultrasound 08/17/2024 11:1 9 AM EDT Narrative 08/17/2024 12:20 PM EDT [place] [address] Ultrasound Report Signed Patient: Irene Rodriguez MR#: [id number] : 1970 Acct:[id number] Age/Sex: 54 / F ADM Date: 08/17/24 Loc: HO.US Attending Dr: Juan Bland MD Ordering Physician: Juan Bland MD Date of Service: 08/17/24 Procedure(s): US pelvic and transvaginal Accession Number(s): [id number] cc: Chrissie Khan MD; Juan Bland MD [...] 08/17/24 1217 DD/ 1119 TD/TT: 08/17/24 1158 Platform Power Technician: Procedure Note Donotuseinterpreter, Image - 08/17/2024 [place] [address] Ultrasound Report Signed Patient: Irene RodriguezMR#: [id number] : 1970Acct:[id number] Age/Sex: 54 / FADM Date: 08/17/24 Loc: HO.US Attending Dr: Juan Bland MD Ordering Physician: Juan Bland MD Date of Service: 08/17/24 Procedure(s): US pelvic and transvaginal Accession Number(s): [id number] cc: Chrissie Khan MD; Juan Bland MD [...] 08/17/24 1217 DD/ 1119 TD/TT: 08/17/24 1158 Platform Power Technician: [facility] External Provider IMG US PROCEDURES Final [...] documented as of this encounter Care Teams Program Proposals Coordinator Relationship Specialty Start Date End Date Chrissie Khan MD [address] [place] [phone] PCP - General Internal Medicine 03/23/22 documented as of this encounter
--- OUTSIDE RECORDS SUMMARY | 2025-01-07 19:38 | XMS_ITS | Encounter Summary ---
Author Organization [employer] Address [address] [facility] 7t [place] [address] Care Team Providers Care Business Objects Name Role Phone Chrissie Khan MD Primary Care Provider + Reason for Visit * Reason Comments Med Refill Encounter Details Date Type Department Care Team (Late st Contact Info) Description 05/23/2024 Refill [facility] MEDICINE 230 [place], [place] [phone] Name, MD Ryan 230 [place] [address] Chronic low back pain, unspecified back pain [...] documented as of this encounter Care Teams Business Objects Relationship Specialty Start Date End Date Chrissie Khan MD 230 [place] [address] PCP - General Internal Medicine 03/23/22 documented as of this encounter
--- OUTSIDE RECORDS SUMMARY | 2025-01-07 19:38 | XMS_ITS | Encounter Summary ---
Author Organization [employer] Address [address] [facility] 7t [place] [address] Care Team Providers Care Optical Technician Name Role Phone Chrissie Khan MD Primary Care Provider + Chrissie Khan MD Primary Care Provider + Encounter Details Date Type Department Care Team (Late st Contact Info) Description 03/16/2022 Telephone [facility] MEDICINE 230 [place], [place] [phone] Chrissie Khan MD 230 [place] [address] Social History Tobacco Use Types Packs/Day Years [...] on filedocumented in this encounter Care Teams Optical Technician Relationship Specialty Start Date End Date Chrissie Khan MD 230 [place] [address] PCP - General Family Medicine 11/28/16 03/22/22 Chrissie Khan MD [address] [place] [address] PCP - General Internal Medicine 03/23/22 documented as of this encounter
--- OUTSIDE RECORDS SUMMARY | 2025-01-07 19:38 | XMS_ITS | Encounter Summary ---
Author Organization [employer] Address [address] [place] [address] Care Team Providers Care Rn Complex Care Name Role Phone Chrissie Khan MD Primary Care Provider + Encounter Details Date Type Department Care Team (Late st Contact Info) Description 01/07/2025 Orders Only [facility] External Provider, [facility] Social History Tobacco Use Types Packs/Day Years Used Date Smoking Tobacco: Never Passive Smoke Exposure: Current Smokeless Tobacco: Never Alcohol Use Standard Drinks/Week [...] Date Recorded Patient Health Questionnaire-9 Score 0 12/15/2024 Patient Health Questionnaire-9 Score 0 12/15/2024 Last PHQ-9: Questionnaire Data Not on file 0 12/15/2024 Housing Stability Answer Date Recorded What is [...] Date Recorded Patient Health Questionnaire-2 Score 0 12/15/2024 Internet Access Answer Date Recorded Internet Access [...] Associated Diagnosis Comments US PELVIS TRANSVAGINAL Routine 01/07/2025 3:50 PM EDT documented in this encounter Results * US Pelvis Transvaginal (01/07/2025 3:50 PM EDT) Anatomical Region Laterality Modality Pelvis Ultrasound 01/07/2025 3:50 PM EDT Narrative 01/07/2025 4:26 PM EDT [address] [address] Ultrasound Report Signed Patient: Irene Rodriguez MR#: [id number] : 1970 Acct:[id number] Age/Sex: 54 / F ADM Date: 01/07/25 Loc: HO.US Attending Dr: Juan Bland MD Ordering Physician: Juan Bland MD Date of Service: 01/07/25 Procedure(s): US pelvic and transvaginal Accession Number(s): [id number] cc: Chrissie Khan MD; Juan Bland MD Reason for Exam: D25.9 - Leiomyoma of uterus, unspecified EXAMINATION: US PELVIS CLINICAL INFORMATION: Follow-up fibroids COMPARISON: August 17, 2024 TECHNIQUE: Ultrasound of the pelvis is performed using both transabdominal and transvaginal transducers along with Doppler. Transvaginal imaging is performed due to inadequate visualization transabdominally. FINDINGS: Uterus: The uterus is anteverted and measures 9.4 x 4.6 x 4.1 cm. The double wall endometrial thickness is 3 mm. The uterus i demonstrates heterogeneous echogenicity. Two leiomyomas are identified. Intramural, contacting submucosal in the anterior fundal region measured 2.0 x 2.1 x 2.0 cm previously 2.1 x 2.2 x 1.7 cm. Intramural and subserosal in the anterior fundus measures 1.2 x 1.2 x 1.1 cm previously 2.1 x 1.9 x 2.0 cm. Adnexa: Both ovaries are visualized. There is normal color flow to the adnexa. There is no ovarian torsion. There is no pelvic ascites or fluid collection. Right ovary measures 1.5 x 1.3 x 1.2 cm. Left ovary measures 2.9 x 1.0 x 1.2 cm. US/US pelvic and transvaginal IMPRESSION: Fibroid uterus, no interval growth. Electronically signed by: Roddy Chery MD 01/07/2025 04:23 PM EDT Dictated By: Roddy Chery MD Signed By: <Electronically signed by Roddy Chery MD in [place]> 01/07/25 1623 DD/ 1550 TD/TT: 01/07/25 1601 Jig Builder: Procedure Note Donotuseinterpreter, Image - 01/07/[address] [address] Ultrasound Report Signed Patient: Irene RodriguezMR#: [id number] : 1970Acct:[id number] Age/Sex: 54 / FADM Date: 01/07/25 Loc: HO.US Attending Dr: Juan Bland MD Ordering Physician: Juan Bland MD Date of Service: 01/07/25 Procedure(s): US pelvic and transvaginal Accession Number(s): [id number] cc: Chrissie Khan MD; Juan Bland MD Reason for Exam: D25.9 - Leiomyoma of uterus, unspecified EXAMINATION: US PELVIS CLINICAL INFORMATION: Follow-up fibroids COMPARISON: August 17, 2024 TECHNIQUE: Ultrasound of the pelvis is performed using both transabdominal and transvaginal transducers along with Doppler. Transvaginal imaging is performed due to inadequate visualization transabdominally. FINDINGS: Uterus: The uterus is anteverted and measures 9.4 x 4.6 x 4.1 cm. The double wall endometrial thickness is 3 mm. The uterus i demonstrates heterogeneous echogenicity. Two leiomyomas are identified. Intramural, contacting submucosal in the anterior fundal region measured 2.0 x 2.1 x 2.0 cm previously 2.1 x 2.2 x 1.7 cm. Intramural and subserosal in the anterior fundus measures 1.2 x 1.2 x 1.1 cm previously 2.1 x 1.9 x 2.0 cm. Adnexa: Both ovaries are visualized. There is normal color flow to the adnexa. There is no ovarian torsion. There is no pelvic ascites or fluid collection. Right ovary measures 1.5 x 1.3 x 1.2 cm. Left ovary measures 2.9 x 1.0 x 1.2 cm. US/US pelvic and transvaginal IMPRESSION: Fibroid uterus, no interval growth. Electronically signed by: Roddy Chery MD 01/07/2025 04:23 PM EDT Dictated By: Roddy Chery MD Signed By: <Electronically signed by Roddy Chery MD in [place]> 01/07/25 1623 DD/ 1550 TD/TT: 01/07/25 1601 Jig Builder: us [facility] External Provider IMG US PROCEDURES Final Result documented in this encounter Visit Diagnoses Not on filedocumented in this encounter Additional Health Concerns Assessment Noted Time PHQ-9 Depression Total Score: 0 12/16/19 25 3:17 PM EDT documented as of this encounter Care Teams Rn Complex Care Relationship Specialty Start Date End Date Chrissie Khan MD [address] [place] [address] PCP - General Internal Medicine 03/23/22 documented as of this encounter
--- OUTSIDE RECORDS SUMMARY | 2025-01-07 19:39 | XMS_ITS | Clinical Summary ---
Author Organization [email or web address] Address [address] [facility] [address] [place] [address] Care Team Providers Care Mobile Disc Jockey Name Role Phone Chrissie Khan MD Primary Care Provider + Allergies No known active allergies Medications ammonium lactate (Amlactin) 12 % cream use daily as needed Active clotrimazole (Lotrimin) 1 % cream apply by topical route 2 times every day to the affected and surrounding areas of skin in the morning and evening 022 Active Blood Pressure Monitor kitIndications:Pr imary hypertension Use to monitor blood pressure at home 1 kit 024 Active lisinopril 10 MG tablet Take 1 tablet (10 mg) by mouth Once per day. 90 tablet 3 024 2024 Active ergocalciferol (Vitamin D2) 1.25 MG (02633 UT) capsule TAKE 1 CAPSULE BY MOUTH ONE TIME PER WEEK 12 capsule 1 025 Active levothyroxine (Synthroid, Levoxyl) 25 MCG tabletIndications :Acquired hypothyroidism TAKE 1 TABLET (25 MCG) BY MOUTH IN THE MORNING 90 tablet 1 025 Active ibuprofen 400 MG tabletIndications :Chronic low back pain, unspecified back pain laterality, unspecified whether sciatica present TAKE 1-2 TABLET BY ORAL ROUTE EVERY 8-12 HOURS NEEDED FOR PAIN/FEVER 90 tablet 025 Active cetirizine (ZyrTEC) 10 MG tablet TAKE 1 TABLET (10 MG) BY MOUTH ONCE PER DAY. 90 tablet 025 Active traZODone (Desyrel) 50 MG tablet TAKE 1 TABLET BY MOUTH AT BEDTIME 90 tablet 3 025 Active lidocaine (Lidoderm) 5 % patchIndications: Acute back pain with sciatica, unspecified laterality APPLY 1 PATCH TOPICALLY EVERY DAY. REMOVE AND DISCARD PATCH WITHIN 12 HOURS OR DIRECTED BY DOCTOR 30 patch 025 Active diphenhydrAMINE (BENADryl) 25 MG capsule take 1-2 capsule by oral route every night needed 021 2024 Discontinued(I neffective) traZODone (Desyrel) 50 MG tablet TAKE 1 TABLET BY MOUTH AT BEDTIME 30 tablet 025 2024 Discontinued(R eorder (will not trigger notification to Pharmacy)) lidocaine (Lidoderm) 5 % patchIndications: Acute back pain with sciatica, unspecified laterality APPLY 1 PATCH TOPICALLY EVERY DAY. REMOVE AND DISCARD PATCH WITHIN 12 HOURS OR DIRECTED BY DOCTOR 30 patch 025 2024 Discontinued Active Problems Problem Noted Date Diagnosed Date Weakness 09/25/2024 Menopausal symptoms 09/25/2024 Assessment & Plan (09/25/2024 4:01 PM EDT): Has intermittent symptoms that may require HRT. I will call [facility] given history of DU B last year. Follow-up with me within 4 to 6 weeks status post trazodone treatment for insomnia. Pure hypercholesterolemia 04/27/2024 Numbness and tingling in both hands 04/27/2024 Assessment & Plan (09/25/2024 3:58 PM EDT): Recurrent, advised to continue wearing hand brace as needed Referred to OT Assessment & Plan (04/27/2024 4:39 PM EST): [...] 30.9 in adult 01/17/2024 Assessment & Plan (09/25/2024 3:54 PM EDT): Discussed re weight reduction options including exercise, life style modifications, diet and referral to specialist physician. Recommended to decrease soda and sugary beverage consumption, increase protein intake with meals (at least 1 portion of protein with each meal) to assist with satiety, increase dietary fiber Recommended at least 150 min/week of moderate intensity exercise. Assessment & Plan (01/17/2024 11:41 AM EDT): Discussed re weight reduction options including exercise, life style modifications, diet and referral to specialist physician. Recommended to decrease soda and sugary beverage [...] m Acquired hypothyroidism 06/13/2023 Assessment & Plan (12/15/2024 3:15 PM EDT): TSH is at goal Continue levothyroxine 25 mcg /day. Follow-up TSH in 4 to 6 months Assessment & Plan (04/27/2024 2:37 PM EST): TSH is at goal Continue levothyroxine 25 mcg /day Assessment & Plan (06/13/2023 12:03 PM EST): TSH is at goal Continue levothyroxine 25 mcg /day Actinic keratoses 03/14/2023 Assessment & Plan (03/14/2023 12:09 PM EST): Resolved, biopsy results discussed w/ pt FU PRN, avoid sun exposure Primary hypertension 03/14/2023 Assessment & Plan (09/25/2024 3:53 PM EDT): Controlled. Compliant w/meds Continue lisinopril 10 mg. Counseled re low salt diet/increase moderate physical activity. Check home BP BIW and prn CP/MARTINEZ/ASIF Non smoking patient. 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 Check home BP BIW and prn CP/MARTINEZ/ASIF Non smoking patient. Fu w me in 4-5 wks Non-healing skin lesion 08/02/2022 Assessment & Plan (08/02/2022 11:51 AM EDT): On right orthodox. Refer to dermatology Tubular adenoma of colon 08/02/2022 Assessment & Plan (08/02/2022 11:51 AM EDT): 3 lesions resected. Next colonoscopy due on 2024. Chronic low back pain 03/15/2022 Assessment & Plan (12/15/2024 3:16 PM EDT): Reminded to reschedule appointment with physical therapy. Continue Tylenol and lidocaine patch as needed COVID-19 03/15/2022 Impaired glucose tolerance 03/15/2022 Overview (03/14/2023): Assessment & Plan (09/25/2024 3:53 PM EDT): Doing well Counseled re more frequent low calorie/carb meals. Encouraged physical activity as tolerated. Assessment & Plan (01/17/2024 1:59 PM EDT): [...] leiomyoma of uterus 03/15/2022 Assessment & Plan (12/15/2024 3:15 PM EDT): Inactive, postmenopausal. Follow-up with [facility], hemoglobin has significantly improved. Check H/H every year Assessment & Plan (08/02/2022 12:29 PM EDT): Follwed by [facility] FU results of endometrial biopsy + pelvic US Assessment & Plan (05/03/2022 9:27 AM EST): She was never seen by [facility] apparently. -We will check with [facility] to reschedule appointment. Lateral epicondylitis 03/15/2022 Primary insomnia 03/15/2022 Assessment & Plan (12/15/2024 3:16 PM EDT): Significantly improved with trazodone. Reminded regarding sleep hygiene, reconsult as needed, refills sent to pharmacy x 1 year Assessment & Plan (09/25/2024 3:58 PM EDT): It could be related to perimenopausal symptoms, may be uncontrolled hypertension. He will check BP 1 or 2 hours after meals, continue same medications Start trazodone and follow-up in 4 to 6 weeks, may decide to start HRT taking into account all the vasomotor symptoms Primary osteoarthritis of right knee 03/15/2022 Assessment & Plan (01/17/2024 1:58 PM EDT): Continue Tylenol prn. Refer to PT. Urinary tract infectious disease 03/15/2022 Hearing loss 11/21/2017 Eczema 05/08/2013 Menorrhagia 11/13/2012 Assessment & Plan (07/18/2023 2:42 PM EDT): Resolved, s/p endometrial biopsy 2022 Seems to be having perimenopausal changes, Fu w/ [facility] Hemoglobin remains stable, can DC iron supplementation Assessment & Plan (06/13/2023 12:00 PM EST): Resolved, pt is perimenopausal Continue iron supplementation to complete 3 m Fu PRN Assessment & Plan (03/14/2023 12:11 PM EST): Resolved s/p endo biopsy + provera, pt may be menopausal now Reassurance given recent nl cheri FU w/ [facility] Assessment & Plan (08/02/2022 12:28 PM EDT): Pt with perimenopause, now oligomenorrhea FU with [facility] Resolved Problems Problem Noted Date Diagnosed Date Resolved Date Acute back pain with sciatica 03/15/2022 07/18/2023 Centipede bite 03/15/2022 07/18/2023 Prehypertension 03/15/2022 06/13/2023 Tinea corporis 03/15/2022 07/18/2023 Foreign body in vagina 03/06/201707/17 Iron deficiency anemia due t o chronic blood loss 11/13/2012 09/25/2024 Assessment & Plan (09/25/2024 3:57 PM EDT): Hb is stable, she can continue off iron tablets Assessment & Plan (06/13/2023 12:02 PM EST): Significantly improving Complete iron supplementation x 3 months Due for FU colonoscopy next yr Assessment & Plan (03/14/2023 12:09 PM EST): Improved Assessment & Plan (08/02/2022 12:29 PM EDT): Hemoglobin significantly improved, now almost 12 secondary to DUB and GIB Continue iron to complete 3 months and FU with [facility] FU with me in 6 months Assessment & Plan (05/03/2022 9:28 AM EST): Her last hemoglobin was wnl. She has continued on iron once a day due to iron deficiency. -Continue iron supplementation until 08/02/22 and fu with me in 3 months to check hemoglobin. -reconsider [facility] referral if she continues with DUB. Encounters Date Type Department Care Team Description 01/07/2025 Orders Only [facility] External Provider, [facility] 12/24/2024 Refill [facility] [address] [place] [address] [place], Geovanna, INS[employer] Acute back pain with sciatica, unspecified laterality 12/18/2024 1:45 PM EDT Office Visit [facility] [address] [place] [phone] Nolan Sommers MD Telangiectasia (Primary Dx) 12/18/2024 Travel 12/15/2024 9:45 AM EDT Office Visit [facility] [address] [place] [phone] Chrissie Khan MD Acquired hypothyroidism (Primary Dx); Chronic low back pain, unspecified back pain laterality, unspecified whether sciatica present; Primary insomnia; Intramural leiomyoma of uterus; Encounter for immunization 12/15/2024 Travel 12/09/2024 Telephone [facility] [address] [place] [phone] Chrissie Khan MD Chart Prep 12/07/2024 Patient Outreach [facility] [address] [place] [address] [phone] Chrissie Khan MD Pre-visit Planning (SDOH screening completed on 04/17/2024) 11/24/2024 Refill [facility] [address] [place] [phone] Chrissie Khan MD Acute back pain with sciatica, unspecified laterality; Chronic low back pain, unspecified back pain laterality, unspecified whether sciatica present 11/23/2024 Refill [facility] [address] [place] [phone] Chrissie Khan MD 11/22/2024 Refill [facility] [address] [place] [address] [phone] Chrissie Khan MD Acquired hypothyroidism 11/13/2024 Telephone [facility] [address] [place] [address] [phone] Chrissie Khan MD 11/12/2024 2:20 PM EDT Office Visit [facility] [address] [place] [phone] Anayeli Forman MD Dental infection (Primary Dx) 11/12/2024 Telephone [facility] [address] [place] [address] Chrissie Khan MD FYI 11/12/2024 Travel 11/12/2024 Telephone [facility] [address] [place], [place] [phone] Chrissie Khan MD Nurse Triage 10/25/2024 Refill [facility] [address] [place] [address] Chrissie Khan MD 10/22/2024 Refill [facility] [address] [place], [place] [phone] Chrissie Khan MD from Last 3 Months Immunizations Immunization Administration Dates Next Due Hep B, adult 04/20/2019, 9,10/09/2018,2007 INFLUENZA VACCINE QUADRIVALE NT RECOMBINANT PRESERVATIVE FREE RIV4 02/08/2020 Influenza Injectable Quadriv alant Preservative Free IIV4 MDCK 02/21/2023 Influenza injectable quadriv alent IIV4 with preservative 03/06/2017 Influenza injectable quadriv alent preservative free 02/02/2022,02/16/2019 Influenza, IIV3, injectable 12/14/2010 Influenza, Split (incl. shawanda fied surface antigen) 2013,02/19/2012 Influenza, seasonal, injecta ble, preservative free 01/17/2024 Pfizer Covid-19 Vaccine 12+ 05/23/2021,,08/11/2020 Pneumococcal Conjugate PCV 20 12/15/2024 TD (adult), 2 Lf tetanus tox oid, preservative free, adsorbed 04/27/2024,04/28/2007 Td (adult), 5 Lf tetanus tox oid, preservative free, adsorbed 10/12/2012 Tdap 2013 Social History Tobacco Use Types Packs/Day Years Used Date Smoking Tobacco: Never Passive Smoke Exposure: Current Smokeless Tobacco: Never Tobacco Cessation:Counseling Given: Not [...] your housing situation today? I have [employer] 06/13/[address] you li [...] Sign Reading Time Taken Comments Blood Pressure 120/88 12/18/2024 1:46 PM EDT Pulse 66 12/18/2024 1:46 PM EDT Temperature 36.2 C (97.1 F) 12/18/2024 1:46 PM EDT Respiratory Rate 18 12/18/2024 1:46 PM EDT Oxygen Saturation 97% 11/12/2024 1:57 PM EDT Inhaled Oxygen Concentration - - Weight 89.4 kg (197 lb) 12/18/2024 1:46 PM EDT Height 170.2 cm (5' 7 ) 12/18/2024 1:46 PM EDT Body Mass Index 30.85 12/18/2024 1:46 PM EDT Plan of Treatment Health Maintenance Due Date Last Done Comments CT Colonography 1970 FIT DNA/Cologuard 1971 FIT 1971 FOBT 1970 Sigmoidoscopy 1970 Zoster Vaccines (1 of 2) 2021 COVID-19 Vaccine ( season) 2024 02/21/2023, 05/23/2021, 09/01/2020, Additional history exists Influenza Vaccine (#1) 2024 , 02/21/2023, 02/02/2022, Additional history exists Alcohol/Substance Use Screening 01/16/2025 01/17/2024 SDOH Screening 04/17/2025 04/17/2024 Pap Smear 06/11/2025 06/11/2022 Mammogram 07/29/2025 07/29/2024, 05/16, 05/23/2022, Additional history exists Colonoscopy 08/02/2025 08/02/2022 Colorectal Cancer Screening 08/02/2025 Depression Screening 12/15/2025 12/15/2024, 12/16/19 25 Disability Screening 12/15/2025 12/15/2024 Tobacco Screening 12/18/2025 12/18/2024 Cervical Cancer Screening 06/11/2027 HPV/Cotest 06/11/2027 06/11/2022, 12/04/2018 Lipid Panel 10/09/2029 10/09/2024, 03/16, 05/07/2023, Additional history exists DTaP/Tdap/Td Vaccines (3 - Td or Tdap) 04/27/2034 04/27/2024, 2013, 10/12/2012, Additional history exists RSV Patients and Patients Aged 60 years or older (1 - 1-dose 75+ series) 2046 HIV Screening Completed 05/01/2013 Hepatitis C Screening Completed 05/01/2013 Hepatitis B Vaccines Completed 04/20/2019, 02/16/2019, 10/09/2018, Additional history exists Pneumococcal Vaccine: 50+ Years Completed 12/15/2024 HIB Vaccines Aged Out No longer eligi [...] patient's age to complete this topic Meningococcal B Vaccine Aged Out No l onger eligible based on patient's age to complete [...] PELVIS TRANSVAGINAL Routine 01/07/2025 3:50 PM EDT LIPID PANEL WITH REFLEX TO DIRECT LDL Routine 10/09/2024 1:12 PM EDT Primary hypertension HEPATIC FUNCTION PANEL Routine 10/09/2024 1:12 PM EDT Primary hypertension TSH W/REFLEX TO FT4 Routine 10/09/2024 1 :12 PM EDT Primary hypertension BI MAMMOGRAM SCREENING TOMOSYNTHESIS BILATERAL Routine 07/29/2024 12:10 PM EDT HM COLONOSCOPY Routine 08/02/2022 8:43 AM [...] Health Maintenance Results * US Pelvis Transvaginal (01/07/2025 3:50 PM EDT) Anatomical Region Laterality Modality Pelvis Ultrasound 01/07/2025 3:50 PM EDT Narrative 01/07/2025 4:26 PM EDT [address] [address] Ultrasound Report Signed Patient: Irene Rodriguez MR#: [id number] : 1970 Acct:[id number] Age/Sex: 54 / F ADM Date: 01/07/25 Loc: HO.US Attending Dr: Juan Bland MD Ordering Physician: Juan Bland MD Date of Service: 01/07/25 Procedure(s): US pelvic and transvaginal Accession Number(s): [id number] cc: Chrissie Khan MD; Juan Bland MD [...] Roddy Chery MD 01/07/2025 04:23 PM EDT RP Dictated By: Roddy Chery MD Signed By: <Electronically signed by Roddy Chery MD in OV> 01/07/25 1623 DD/ 1550 TD/TT: 01/07/25 1601 [employer]: Procedure Note Donotuseinterpreter, Image - 01/07/2025 [place] [address] Ultrasound Report Signed Patient: Irene RodriguezMR#: [id number] : 1970Acct:[id number] Age/Sex: 54 / FADM Date: 01/07/25 Loc: HO.US Attending Dr: Juan Bland MD Ordering Physician: Juan Bland MD Date of Service: 01/07/25 Procedure(s): US pelvic and transvaginal Accession Number(s): [id number] cc: Chrissie Khan MD; Juan Bland MD [...] Roddy Chery MD 01/07/2025 04:23 PM EDT RP Dictated By: Roddy Chery MD Signed By: <Electronically signed by Roddy Chery MD in OV> 01/07/25 1623 DD/ 1550 TD/TT: 01/07/25 1601 [employer]: us [facility] External Provider IMG US PROCEDURES Final Result * TSH with Reflex to Free T4 (10/09/2024 1:12 PM EDT) TSH reflex Free T4 1.34 0.32 - 4.0 uIU/mL [facility] Blood 10/09/2024 1:12 PM EDT 10/09/2024 4:25 PM EDT Chrissie Khan MD LAB BLOOD ORDERABLES Fin al Result [facility] [address] [place] [phone] * (ABNORMAL) Lipid Panel with Reflex to Direct LDL (10/09/2024 1:12 PM EDT) Triglycerides 91 <150 mg/dL [facility] Comment:Desirable Triglyceri de: less than 150 mg/dLBorderline High Triglyceride 150-199 mg/dLHigh Triglyceride: 200-499 mg/dLVery High Triglyceride: greater than or equal to 5OO mg/dL Cholesterol 162 <200 mg/dL [facility] Comment:Desirable Cholestero l: less than 200 mg/dLBorderline High Cholesterol: 200-239 mg/dLHigh Cholesterol: greater than 239 mg/dL LDL Cholesterol Calculated 103(H) <100 mg/dL [facility] Comment:Desirable LDL: less than 100 mg/dLNear Optimal/Above Optimal LDL: 110- 129 mg/dLBorderline High LDL: 130-159 mg/dLHigh LDL: 160-189 mg/dLVery High LDL: greater than or equal to 190 mg/dL HDL Cholesterol 41 >40 mg/dL [facility] Comment:Desirable HDL: great er than 40 mg/dL Note: This HDL assay may give artificially low results in patients with liver disease. Blood 10/09/2024 1:12 PM EDT 10/09/2024 4:25 PM EDT us Chrissie Khan MD LAB BLOOD ORDERABLES Fin al Result Performing Organization Address [facility] [[email or web address]] Co de Phone Number [facility] [address] [place] [address] [phone] * Hepatic Function Panel (10/09/2024 1:12 PM EDT) Bilirubin, Total 0.8 0.0 - 1.0 mg/dL [facility] Bilirubin, Direct 0.3 0.0 - 0.5 mg/dL [facility] Aspartate Amino Transferase 26 5 - 31 U/L [facility] Alanine Aminotransferase 27 0 - 31 U/L [facility] Total Protein 7.4 6.5 - 8.0 g/dL [facility] Albumin Level 4.7 3.5 - 5.0 g/dL [facility] Alkaline Phosphatase 85 39 - 117 U/L [facility] Blood Venous blood specimen / Unknown 10/09/2024 1:12 PM EDT 10/09/2024 4:25 PM EDT Chrissie Khan MD LAB BLOOD ORDERABLES Fin al Result Performing Organization Address [facility] [[email or web address]] Co de Phone Number [facility] [address] [place] [phone] * BI Mammogram Screening Tomosynthesis Bilateral (07/29/2024 12:10 PM EDT) Anatomical Region Laterality Modality Breast Bilateral Mammography 07/29/2024 12:1 0 PM EDT Narrative 08/08/2024 2:36 PM EDT [address] [place] [address] Mammography Report Signed Patient: Irene Rodriguez MR#: [id number] : 1970 Acct:[id number] Age/Sex: 54 / F ADM Date: 07/29/24 Loc: HO.MAMMO Attending Dr: Chrissie Khan MD Ordering Physician: Chrissie Khan MD Results: 1Ne gative Date of Service: 07/29/24 Follow Up: 1 Year From [facility] Mammogram Procedure(s): MM tomosynthesis screening BI Accession Number(s): [id number] cc: Chrissie Khan MD EXAMINATION: MM SCREENING [...] 08/08/24 1433 DD/ 1210 TD/TT: 07/29/24 1221 [employer]: Procedure Note Donotkaninterpreter, Image - 08/08/20[address] [facility] [address] [place], [place] [address] Mammography Report Signed Patient: Irene RodriguezMR#: [id number] : 1970Acct:[id number] Age/Sex: 54 / FADM Date: 07/29/24 Loc: HO.MAMMO Attending Dr: Chrissie Khan MD Ordering Physician: Chrissie Khan MDResults: 1Ne gative Date of Service: 07/29/24Follow Up: 1 Year From Orig inal Mammogram Procedure(s): MM tomosynthesis screening BI Accession Number(s): [id number] cc: Chrissie Khan MD EXAMINATION: MM SCREENING [...] 08/08/24 1433 DD/ 1210 TD/TT: 07/29/24 1221 [employer]: Chrissie Khan MD IMG BI PROCEDURES Edited Result - Final * Hm Colonoscopy (08/02/2022 8:43 AM EDT) Colonoscopy Normal Normal Narrative Malissa Pedraza - 08/02/2022 8:43 AM EDT Recommended 5 year follow up ( see Historical Provider HEALTH MAINTENANCE Edited Result - Final * HPV mRNA E6/E7 w/Reflex to HPV Genotypes 16, 18/45 (06/11/2022 11:52 AM EST) HPV nRNA E6/E7 Not Detected Not Detected [facility] Comment:Methodology: Transcr iption-Mediated AmplificationThis assay detects E6/E7 viral messenger RNA (mRNA) from 14high-risk HPV types (16,18,31,33,35,39,45,51,52,56,58,59,66,68).Cervical sources are required for HPV testing.If a vaginal source from a patient who has had atotal hysterectomy with removal of cervix wassubmitted, please contact the testing laboratoryfor alternative testing options.For additional information, please refer [email or web address]/faq/DNC060b4(This link if provided for information/educational purposes only.)THIS TEST WAS PERFORMED AT:[employer] [place] [phone] ROBLEDO MD HPV mRNA E6/E7 [facility] HPV 16 RNA [facility] HPV 18/45 RNA [facility] 06/11/2022 11:5 2 AM EST 06/11/2022 12:00 PM EST [facility] External Provider LAB CYT OLOGY ORDERABLES Final Result [facility] [address] [place] [phone] * Pap Smear (06/11/2022 11:52 AM EST) 06/11/2022 11:5 2 AM EST 06/11/2022 12:00 PM EST Narrative [facility] - 06/17/2022 3:42 PM EST ----- ------- Name: Irene Rodriguez Age/Sex: 52/F : 1970 Unit#: [id number] Attend Dr: Juan Bland MD Re06/11/22 Status: DEP REF Location: [facility] Disch: ----- ------- SPEC : [id number] RECD: 06/11/22-1199 STATUS: VALARIE RIVAS NUM: [id number] CHLOE: 06/11/22-[address] [facility] [address]: Juan Bland MD ENTERED: 06/12/22-3255 SP TYPE: Pap Smr [facility] DR: Chrissie Khan MD ORDERED: Pap Smear Interpretation Satisfactory for evaluation. Negative for intraepithelial lesion or malignancy. HPV mRNA E6/E7: NOT DETECTED This assay detects E6/E7 viral messenger RNA (mRNA) from 14 high-risk HPV types (16, 18, 31, 33, 35, 39, 45, 51, 52, 56, 58, 59, 66, 68) HPV testing performed by [facility], [place], [place]. See reference laboratory portion of the EMR for entire report. Clinical Information LMP: 05/17/2022 Previous PAP test: Unknown Material Received ThinPrep-Cervical Copies To: Chrissie Khan MD [address] [place] [address] Juan Bland MD [address] [place] [address] [place] [address] ----- ------- Signed (signature on file) Cheyanne Smith Shabnam 06/17/22 1542 ----- ------- END OF REPORT [facility] External Provider LAB CYT OLOGY ORDERABLES Final Result [facility] [address] [place] [phone] [phone] * HIV 1/2 ANTIGEN AND ANTIBODY (EXTERNAL RESULTS ONLY) (05/01/2013 8:50 AM EST) HIV Ag/Ab Nonreactive 05/01/2013 8:50 AM EST Vivek Zimmerman VETERINARY MICROBIOLOGIST LAB POINT OF CARE TE ST DOCKED DEVICE UNSOLICITED RESULTS Final Result * Hepatitis C Antibody with Reflex to HCV, RNA, Quantitative, Real-Time PCR (05/01/2013 8:50 AM EST) Blood Venous blood specimen / Unknown 05/01/2013 8:50 AM EST Vivek Zimmerman VETERINARY MICROBIOLOGIST LAB BLOOD ORDERABLES Final R esult from Last 3 Months or Most Recently Relevant to Health Maintenance Insurance HSN [employer] C3 Care Teams Mobile Disc Jockey Relationship Specialty Start Date End Date Chrissie Khan MD [address] [place] [address] PCP - General Internal Medicine 03/23/22
--- OUTSIDE RECORDS SUMMARY | 2025-01-07 19:39 | XMS_ITS | Encounter Summary ---
Author Organization [employer] Address [address] [facility] [address] [place] [address] Care Team Providers Care Slitter Cut Off Operator Name Role Phone Chrissie Khan MD Primary Care Provider + Reason for Visit * Reason Comments Med Refill Encounter Details Date Type Department Care Team (Late st Contact Info) Description 07/01/2022 Refill [facility] [address] [place] [address] Chrissie Khan MD [address] [place] [address] Iron deficiency anemia due to chronic blood [...] documented as of this encounter Care Teams Slitter Cut Off Operator Relationship Specialty Start Date End Date Chrissie Khan MD [address] [place] [address] PCP - General Internal Medicine 03/23/22 documented as of this encounter
--- OUTSIDE RECORDS SUMMARY | 2025-01-07 19:39 | XMS_ITS | Encounter Summary ---
Author Organization [employer] Address [address] [facility] 7t [place] [address] Care Team Providers Care Manager Convention Name Role Phone Chrissie Khan MD Primary Care Provider + Encounter Details Date Type Department Care Team (Late st Contact Info) Description 08/02/2022 Abstract [facility] MEDICINE [address] [place] [address] Chrissie Khan MD [address] [place] [address] Social History Tobacco Use Types Packs/Day Years [...] Nonreactive 05/01/2013 8:50 AM EST Vivek Zimmerman OFFICE ASSISTANT RECEPTIONIST LAB POINT OF CARE TE ST DOCKED DEVICE UNSOLICITED RESULTS Final Result documented in this encounter Visit Diagnoses Not on filedocumented in this encounter Additional Health Concerns Assessment Noted Time PHQ-9 Depression Total Score: 0 05/03/19 23 8:59 AM EST documented as of this encounter Care Teams Manager Convention Relationship Specialty Start Date End Date Chrissie Khan MD [address] [place] [id number] PCP - General Internal Medicine 03/23/22 documented as of this encounter
--- OUTSIDE RECORDS SUMMARY | 2025-01-07 19:39 | XMS_ITS | Encounter Summary ---
Author Organization [employer] Address [address] [facility] 7t [place] [address] Care Team Providers Care Public Health Internship Name Role Phone Chrissie Khan MD Primary Care Provider + Reason for Visit * Reason Comments Med Refill Encounter Details Date Type Department Care Team (Late st Contact Info) Description 11/16/2023 Refill [facility] MEDICINE [address] [place], [place] [phone] Chrissie Khan MD [address] [place] [address] Acute back pain with sciatica, unspecified laterality [...] documented as of this encounter Care Teams Public Health Internship Relationship Specialty Start Date End Date Chrissie Khan MD [address] [place] [id number] PCP - General Internal Medicine 03/23/22 documented as of this encounter
== END 2025-01-07 15:34 | disposition home or self-care (01) ==
LOC: HO.US 15:33
PROVIDERS: PCP Internal Medicine; Visit Provider Obstetrics & Gynecology
DX: D25.9 Leiomyoma of uterus, unspecified (principal)
CPT/HCPCS: 76830; 76856

== ENCOUNTER → 2025-01-07 15:34 | Outpatient (BNV) | payer MEDICAID, SELFPAY | PROVIDERS: PCP Internal Medicine; Visit Provider Radiology Diagnostic Radiology | DX: D25.1 Intramural leiomyoma of uterus (principal) | CPT/HCPCS: 76830; 76856 ==

== ENCOUNTER 2025-01-11 15:59 | Outpatient (AMB) | payer MEDICAID, SELFPAY ==
--- NOTE | 2025-01-11 15:59 | A.OFFVIS_ITS ---
Intake Visit Reasons: TV Ultrasound results Tourist Information Officer Required: Yes Tourist Information Officer Language: Building Superintendent Services: Tourist Information Officer Present (in person) Tourist Information Officer Name: Sarah SYED Information Interpreted: non-clinical & clinical Accompanied by: Self / Same As Patient Allergies No Known Allergies (No Known Allergies*) Allergy (Verified 01/11/25 16:01) HPI Comments Details: Presenting for follow-up ultrasound regarding uterine myoma seen on previous pelvic ultrasound. The patient is doing well with no complaints no abnormal uterine bleeding, pelvic pressure or pain. Pelvic ultrasound done recently showed the following: Uterus: The uterus is anteverted and measures 9.4 x 4.6 x 4.1 cm. The double wall endometrial thickness is 3 mm. The uterus i demonstrates heterogeneous echogenicity. Two leiomyomas are identified. Intramural, contacting submucosal in the anterior fundal region measured 2.0 x 2.1 x 2.0 cm previously 2.1 x 2.2 x 1.7 cm. Intramural and subserosal in the anterior fundus measures 1.2 x 1.2 x 1.1 cm previously 2.1 x 1.9 x 2.0 cm. Adnexa: Both ovaries are visualized. There is normal color flow to the adnexa. There is no ovarian torsion. There is no pelvic ascites or fluid collection. Right ovary measures 1.5 x 1.3 x 1.2 cm. Left ovary measures 2.9 x 1.0 x 1.2 cm. US/US pelvic and transvaginal IMPRESSION: Fibroid uterus, no interval growth. 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 Sexual orientation: Straight/Heterosexual Gender identity: Female Review of Systems Const All systems reviewed & are unremarkable except as noted in HPI and below Reports as per HPI and Reports no additional complaints GI Reports no additional complaints Reports no additional complaints Telehealth Telehealth Telehealth Platform: [facility] Location of provider rendering services: practice address Location of patient: address on file Patient Identification confirmed using: Name, : Yes Telehealth method: video Patient verbally consented to treatment: Yes Patient verbally consented to billing insurance company: Yes Patient informed of any privacy concerns related to visit: Yes Minutes spent on Phone/Video with Pt.: 4 Assessment & Plan Assessment & Plan (1) Uterine myoma: Code(s): D25.9 - Leiomyoma of uterus, unspecified Category: Medical Plan: Discussed with the patient the findings on pelvic ultrasound & the risk of my osarcoma; in addition reviewed with the patient that malignancy and pre malignancy cannot be ruled out without hysterectomy for pathological evaluation ; furthermore, explained to the patient the limitation of pelvic ultrasound and endometrial biopsy in the setting. Discussed with the patient the options of treatment including expectant management versus hysterectomy; the pros and cons, risks benefits of each approach were discussed with the patient including the fact that in cases of myosarcoma, surgical treatment can lead to early diagnosis and positively affects the prognosis; after further discussion, the patient decided to proceed with expectant management. Will repeat pelvic ultrasound periodically. Instructions given to patient to call in case any of the following occurs: pressure symptoms, abnormal uterine bleeding, pelvic pain; and to schedule a six-months pelvic ultrasound (order placed) and a follow-up appointment . All questions answered, the patient verbalized understanding and agreed with the plan . I spent a total of 20 minutes reviewing the chart, talking to the patient via video and documenting in the medical record. Orders: Orders US pelvic and transvaginal 1 Year D25.9 - Leiomyoma of uterus, unspecified Coding Level of Care Code Tele Est Pt Level 3 (91887) Diagnoses Uterine myoma D25.9
--- OUTSIDE RECORDS SUMMARY | 2025-01-11 18:04 | XMS_ITS | Encounter Summary ---
Author Organization [employer] Address 75 [facility] 7t [place] [address] Care Team Providers Care Laser Specialist Name Role Phone Chrissie Khan MD Primary Care Provider + Encounter Details Date Type Department Care Team (Late st Contact Info) Description 08/17/2024 Orders Only [facility] MED & PEDS [address] [place] [address] Provider, MD Lisa Social History Tobacco Use [...] patient with uterine fibroids, apparently seen by SYSTEMS ANALYSIS MANAGER for follow-up. Please call patient and explain results, tell her that fibroids are usually a benign condition but she needs to follow-up with SYSTEMS ANALYSIS MANAGER in case she needs additional treatment, sometimes [...] AM EDT Narrative 08/17/2024 12:20 PM EDT [place] [address] Ultrasound Report Signed Patient: Irene Rodriguez MR#: [id number] : 1970 Acct:[id number] Age/Sex: 54 / F ADM Date: 08/17/24 Loc: HO.US Attending Dr: Juan Bland MD Ordering Physician: Juan Bland MD Date of Service: 08/17/24 Procedure(s): US pelvic and transvaginal Accession Number(s): [id number] cc: Chrissie Khan MD; Juan Bland MD [...] 08/17/24 1217 DD/ 1119 TD/TT: 08/17/24 1158 Tank Car Inspector: Procedure Note Donotuseinterpreter, Image - 08/17/2024 [place] [address] Ultrasound Report Signed Patient: Irene RodriguezMR#: [id number] : 1970Acct:[id number] Age/Sex: 54 / FADM Date: 08/17/24 Loc: HO.US Attending Dr: Juan Bland MD Ordering Physician: Juan Bland MD Date of Service: 08/17/24 Procedure(s): US pelvic and transvaginal Accession Number(s): [id number] cc: Chrissie Khan MD; Juan Bland MD [...] 08/17/24 1217 DD/ 1119 TD/TT: 08/17/24 1158 Tank Car Inspector: [employer] External Provider IMG US PROCEDURES Final Result [...] documented as of this encounter Care Teams Laser Specialist Relationship Specialty Start Date End Date Chrissie Khan MD [address] [place] [id number] PCP - General Internal Medicine 03/23/22 documented as of this encounter
--- OUTSIDE RECORDS SUMMARY | 2025-01-11 18:04 | XMS_ITS | Encounter Summary ---
Author Organization [employer] Address 75 [facility] 7t [place] [address] Care Team Providers Care Staging Technician Name Role Phone Chrissie Khan MD Primary Care Provider + Reason for Visit * Reason Onset Date Comments Appointment Request 02/06/2023 Encounter Details Date Type Department Care Team (Late st Contact Info) Description 02/06/2023 Telephone [facility] MEDICINE [address] [place], [place] [phone] Chrissie Khan MD [address] [place] [address] Appointment Request Social History Tobacco Use Types Packs/Day Years Used Date Smoking Tobacco: Never Passive Smoke Exposure: Never Smokeless Tobacco: Never Alcohol Use Standard Drinks/Week Comments Not Currently 0 (1 standard drink = 0.6 oz pur e alcohol) Depression Answer Date Recorded Patient Health Questionnaire-9 Score 0 05/03/2022 Housing Stability Answer Date Recorded What is your housing situation today? I have [employer] 02/06/[address] you [...] Tc from pt requesting a OV appt casualty underwriter schedule pt for 03/14 however pt will like an appt before. Any questions contact pt in latvian. documented in this encounter Plan of Treatment Not on file documented as of this encounter Visit Diagnoses Not on filedocumented in this encounter Additional Health Concerns Assessment Noted Time PHQ-9 Depression Total Score: 0 05/03/19 23 8:59 AM EST documented as of this encounter Care Teams Staging Technician Relationship Specialty Start Date End Date Chrissie Khan MD [address] [place] [phone] PCP - General Internal Medicine 03/23/22 documented as of this encounter
--- OUTSIDE RECORDS SUMMARY | 2025-01-11 18:04 | XMS_ITS | Encounter Summary ---
Author Organization [employer] Address [address] [facility] 7t [place] [address] Care Team Providers Care Endodontic Assistant Name Role Phone Chrissie Khan MD Primary Care Provider + Reason for Visit * Reason Comments Med Refill Encounter Details Date Type Department Care Team (Late st Contact Info) Description 07/01/2022 Refill [facility] MED & PEDS [address] [place] [address] Chrissie Khan MD [address] [place] [address] Iron deficiency anemia due to chronic blood [...] documented as of this encounter Care Teams Endodontic Assistant Relationship Specialty Start Date End Date Chrissie Khan MD [address] [place] [address] PCP - General Internal Medicine 03/23/22 documented as of this encounter
--- OUTSIDE RECORDS SUMMARY | 2025-01-11 18:04 | XMS_ITS | Encounter Summary ---
Author Organization [employer] Address [address] [facility] 7t [place] [address] Care Team Providers Care Software Configuration Engineer Name Role Phone Chrissie Khan MD Primary Care Provider + Encounter Details Date Type Department Care Team (Late st Contact Info) Description 01/07/2025 Orders Only [facility] External Provider, [facility] Social History Tobacco Use Types Packs/Day Years [...] PM EDT Narrative 01/07/2025 4:26 PM EDT [address] [address] Ultrasound Report Signed Patient: Irene Rodriguez MR#: [id number] : 1970 Acct:[id number] Age/Sex: 54 / F ADM Date: 01/07/25 Loc: HO.US Attending Dr: Juan Blnad MD Ordering Physician: Juan Bland MD Date of Service: 01/07/25 Procedure(s): US pelvic and transvaginal Accession Number(s): [id number] cc: Chrissie Khan MD; Juan Bland MD [...] 01/07/25 1623 DD/ 1550 TD/TT: 01/07/25 1601 Incinerator Plant Supervisor: Procedure Note Donotuseinterpreter, Image - 01/07/[address] [address] Ultrasound Report Signed Patient: Irene RodriguezMR#: [id number] : 1970Acct:[id number] Age/Sex: 54 / FADM Date: 01/07/25 Loc: HO.US Attending Dr: Juan Bland MD Ordering Physician: Juan Bland MD Date of Service: 01/07/25 Procedure(s): US pelvic and transvaginal Accession Number(s): [id number] cc: Chrissie Khan MD; Juan Bland MD [...] 01/07/25 1623 DD/ 1550 TD/TT: 01/07/25 1601 Incinerator Plant Supervisor: us [facility] External Provider IMG US PROCEDURES Final Result documented in this encounter Visit Diagnoses Not on filedocumented in this encounter Additional Health Concerns Assessment Noted Time PHQ-9 Depression Total Score: 0 12/16/19 25 3:17 PM EDT documented as of this encounter Care Teams Software Configuration Engineer Relationship Specialty Start Date End Date Chrissie Khan MD [address] [place] [address] PCP - General Internal Medicine 03/23/22 documented as of this encounter
--- OUTSIDE RECORDS SUMMARY | 2025-01-11 18:04 | XMS_ITS | Encounter Summary ---
Author Organization [employer] Address [address] [facility] 7t [place] [address] Care Team Providers Care Operations Business Partner Name Role Phone Chrissie Khan MD Primary Care Provider + Chrissie Khan MD Primary Care Provider + Encounter Details Date Type Department Care Team (Late st Contact Info) Description 03/16/2022 Telephone [facility] MEDICINE [address] [place], [place] [phone] Chrissie Khan MD [address] [place] [address] Social History Tobacco Use Types Packs/Day Years [...] on filedocumented in this encounter Care Teams Operations Business Partner Relationship Specialty Start Date End Date Chrissie Khan MD [address] [place] [address] PCP - General Family Medicine 11/28/16 03/22/22 Chrissie Khan MD [address] [place] [id number] PCP - General Internal Medicine 03/23/22 documented as of this encounter
--- OUTSIDE RECORDS SUMMARY | 2025-01-11 18:04 | XMS_ITS | Encounter Summary ---
Author Organization [employer] Address [address] [facility] 7t [place] [address] Care Team Providers Care Tow Boat Captain Name Role Phone Chrissie Khan MD Primary Care Provider + Reason for Visit * Reason Comments Med Refill Encounter Details Date Type Department Care Team (Late st Contact Info) Description 05/23/2024 Refill [facility] MEDICINE [address] [place], [place] [phone] Name, MD Ryan [address] [place] [address] Chronic low back pain, unspecified back pain [...] documented as of this encounter Care Teams Tow Boat Captain Relationship Specialty Start Date End Date Chrissie Khan MD [address] [place] [address] PCP - General Internal Medicine 03/23/22 documented as of this encounter
--- OUTSIDE RECORDS SUMMARY | 2025-01-11 18:04 | XMS_ITS | Encounter Summary ---
Author Organization [employer] Address 75 [facility] 7t [place] [address] Care Team Providers Care Cargo Handler Name Role Phone Chrissie Khan MD Primary Care Provider + Reason for Visit * Reason Comments Med Refill Encounter Details Date Type Department Care Team (Late st Contact Info) Description 11/16/2023 Refill [facility] MEDICINE [address] [place], [place] [phone] Chrissie Khan MD [address] [place] [address] Acute back pain with sciatica, unspecified laterality [...] documented as of this encounter Care Teams Cargo Handler Relationship Specialty Start Date End Date Chrissie Khan MD [address] [place] [address] PCP - General Internal Medicine 03/23/22 documented as of this encounter
--- OUTSIDE RECORDS SUMMARY | 2025-01-11 18:04 | XMS_ITS | Clinical Summary ---
Author Organization [employer] Address [address] [facility] 7t [place] [address] Care Team Providers Care Reed Polisher Name Role Phone Chrissie Khan MD Primary [...] 2024 Active ergocalciferol (Vitamin D2) 1.25 MG (94246 UT) capsule TAKE 1 CAPSULE BY MOUTH [...] that may require HRT. I will call CHEMICAL ENGRAVER given history of DU B last year. [...] life style modifications, diet and referral to call specialist. Recommended to decrease soda and sugary beverage consumption, increase protein intake with meals (at least 1 portion of protein with each meal) to assist with satiety, increase dietary fiber Recommended at least 150 min/week of moderate intensity exercise. Assessment & Plan (01/17/2024 11:41 AM EDT): Discussed re weight reduction options including exercise, life style modifications, diet and referral to call specialist. 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 Check home BP BIW and prn CP/MARTINEZ/ASIF Non smoking patient. Fu w me in 4-5 wks Non-healing skin lesion 08/02/2022 Assessment & Plan (08/02/2022 11:51 AM EDT): On right episcopalian. Refer to dermatology Tubular adenoma of colon [...] 3:15 PM EDT): Inactive, postmenopausal. Follow-up with CHEMICAL ENGRAVER, hemoglobin has significantly improved. Check H/H every year Assessment & Plan (08/02/2022 12:29 PM EDT): Follwed by CHEMICAL ENGRAVER FU results of endometrial biopsy + pelvic US Assessment & Plan (05/03/2022 9:27 AM EST): She was never seen by CHEMICAL ENGRAVER apparently. -We will check with CHEMICAL ENGRAVER to reschedule appointment. Lateral epicondylitis 03/15/2022 Primary [...] to be having perimenopausal changes, Fu w/ CHEMICAL ENGRAVER Hemoglobin remains stable, can DC iron supplementation Assessment & Plan (06/13/2023 12:00 PM EST): Resolved, pt is perimenopausal Continue iron supplementation to complete 3 m Fu PRN Assessment & Plan (03/14/2023 12:11 PM EST): Resolved s/p endo biopsy + provera, pt may be menopausal now Reassurance given recent nl cheri FU w/ CHEMICAL ENGRAVER Assessment & Plan (08/02/2022 12:28 PM EDT): Pt with perimenopause, now oligomenorrhea FU with CHEMICAL ENGRAVER Resolved Problems Problem Noted Date Diagnosed Date [...] to complete 3 months and FU with CHEMICAL ENGRAVER FU with me in 6 months Assessment & Plan (05/03/2022 9:28 AM EST): Her last hemoglobin was wnl. She has continued on iron once a day due to iron deficiency. -Continue iron supplementation until 08/02/22 and fu with me in 3 months to check hemoglobin. -reconsider CHEMICAL ENGRAVER referral if she continues with DUB. Encounters Date Type Department Care Team Description 01/07/2025 Orders Only [facility] External Provider, [facility] 12/24/2024 Refill [facility] [address] [place] [address] Stanford, Geovanna, HOGSHEAD PACKER Acute back pain with sciatica, unspecified laterality 12/18/2024 1:45 PM EDT Office Visit [facility] [address] [place] [phone] Nolan Sommers MD Telangiectasia (Primary Dx) 12/18/2024 Travel 12/15/2024 9:45 AM EDT Office Visit [facility] [address] [place] [phone] Chrissie Khan MD Acquired hypothyroidism (Primary Dx); Chronic low back pain, unspecified back pain laterality, unspecified whether sciatica present; Primary insomnia; Intramural leiomyoma of uterus; Encounter for immunization 12/15/2024 Travel 12/09/2024 Telephone [facility] [address] [place] [phone] Chrissie Khan MD Chart Prep 12/07/2024 Patient Outreach [facility] [address] [place] [phone] Chrissie Khan MD Pre-visit Planning (SDOH screening completed on 04/17/2024) 11/24/2024 Refill [facility] [address] [place] [phone] Chrissie Khan MD Acute back pain with sciatica, unspecified laterality; Chronic low back pain, unspecified back pain laterality, unspecified whether sciatica present 11/23/2024 Refill [facility] [address] [place] [phone] Chrissie Khan MD 11/22/2024 Refill [facility] [address] [place] [phone] Chrissie Khan MD Acquired hypothyroidism 11/13/2024 Telephone [facility] [address] [place] [address] [phone] Chrissie Khan MD 11/12/2024 2:20 PM EDT Office Visit [facility] [address] [place] [phone] Anayeli Forman MD Dental infection (Primary Dx) 11/12/2024 Telephone [facility] [address] [place] [address] Chrissie Khan MD FYI 11/12/2024 Travel 11/12/2024 Telephone [facility] [address] [place], [place] [phone] Chrissie Khan MD Nurse Triage 10/25/2024 Refill [facility] [address] [place] [address] Chrissie Khan MD 10/22/2024 Refill [facility] [address] [place], [place] [phone] Chrissie Khan MD from Last 3 Months [...] Routine 10/09/2024 1:12 PM EDT Primary hypertension BI MAMMOGRAM SCREENING [...] PM EDT Narrative 01/07/2025 4:26 PM EDT [address] [address] Ultrasound Report Signed Patient: Irene Rodriguez MR#: [id number] : 1970 Acct:[id number] Age/Sex: 54 / F ADM Date: 01/07/25 Loc: HO.US Attending Dr: Juan Bland MD Ordering Physician: Juan Bland MD Date of Service: 01/07/25 Procedure(s): US pelvic and transvaginal Accession Number(s): [id number] cc: Chrissie Khan MD; Juan Bland MD [...] 01/07/25 1623 DD/ 1550 TD/TT: 01/07/25 1601 E Commerce Developer: Procedure Note Donotuseinterpreter, Image - 01/07/2025 [place] [address] Ultrasound Report Signed Patient: Irene RodriguezMR#: [id number] : 1970Acct:[id number] Age/Sex: 54 / FADM Date: 01/07/25 Loc: HO.US Attending Dr: Juan Bland MD Ordering Physician: Juan Bland MD Date of Service: 01/07/25 Procedure(s): US pelvic and transvaginal Accession Number(s): [id number] cc: Chrissie Khan MD; Juan Bland MD [...] 01/07/25 1623 DD/ 1550 TD/TT: 01/07/25 1601 E Commerce Developer: [facility] External Provider IMG US PROCEDURES Final Result * (ABNORMAL) Lipid Panel with Reflex to Direct LDL (10/09/2024 1:12 PM EDT) Triglycerides 91 <150 mg/dL [facility] Comment:Desirable Triglyceri de: less than 150 mg/dLBorderline High Triglyceride 150-199 mg/dLHigh Triglyceride: 200-499 mg/dLVery High Triglyceride: greater than or equal to 5OO mg/dL Cholesterol 162 <200 mg/dL [facility] Comment:Desirable Cholestero l: less than 200 mg/dLBorderline High Cholesterol: 200-239 mg/dLHigh Cholesterol: greater than 239 mg/dL LDL Cholesterol Calculated 103(H) <100 mg/dL [facility] Comment:Desirable LDL: less than 100 mg/dLNear Optimal/Above Optimal LDL: 110- 129 mg/dLBorderline High LDL: 130-159 mg/dLHigh LDL: 160-189 mg/dLVery High LDL: greater than or equal to 190 mg/dL HDL Cholesterol 41 >40 mg/dL [facility] Comment:Desirable HDL: great er than 40 mg/dL Note: This HDL assay may give artificially low results in patients with liver disease. Blood 10/09/2024 1:12 PM EDT 10/09/2024 4:25 PM EDT Chrissie Khan MD LAB BLOOD ORDERABLES Fin al Result [facility] [address] [place] [address] [phone] * BI Mammogram Screening Tomosynthesis Bilateral (07/29/2024 12:10 PM EDT) Anatomical Region Laterality Modality Breast Bilateral Mammography 07/29/2024 12:1 0 PM EDT Narrative 08/08/2024 2:36 PM EDT [address] [place] [address] Mammography Report Signed Patient: Irene Rodriguez MR#: [id number] : 1970 Acct:[id number] Age/Sex: 54 / F ADM Date: 07/29/24 Loc: HO.MAMMO Attending Dr: Chrissie Khan MD Ordering Physician: Chrissie Khan MD Results: 1Ne gative Date of Service: 07/29/24 Follow Up: 1 Year From [facility] Mammogram Procedure(s): MM tomosynthesis screening BI Accession Number(s): [id number] cc: Chrissie Khan MD EXAMINATION: MM SCREENING [...] 08/08/24 1433 DD/ 1210 TD/TT: 07/29/24 1221 E Commerce Developer: Procedure Note Donotuseinterpreter, Image - 08/08/20[facility] [address] [place], [place] [address] Mammography Report Signed Patient: Irene RodriguezMR#: [id number] : 1970Acct:[id number] Age/Sex: 54 / FADM Date: 07/29/24 Loc: HO.MAMMO Attending Dr: Chrissie Khan MD Ordering Physician: Chrissie Khan MDResults: 1Ne gative Date of Service: 07/29/24Follow Up: 1 Year From Orig inal Mammogram Procedure(s): MM tomosynthesis screening BI Accession Number(s): [id number] cc: Chrissie Khan MD EXAMINATION: MM SCREENING [...] 08/08/24 1433 DD/ 1210 TD/TT: 07/29/24 1221 E Commerce Developer: Chrissie Khan MD IMG BI PROCEDURES Edited [...] HPV nRNA E6/E7 Not Detected Not Detected [facility] Comment:Methodology: Transcr iption-Mediated AmplificationThis assay detects E6/E7 viral messenger RNA (mRNA) from 14high-risk HPV types (16,18,31,33,35,39,45,51,52,56,58,59,66,68).Cervical sources are required for HPV testing.If a vaginal source from a patient who has had atotal hysterectomy with removal of cervix wassubmitted, please contact the testing laboratoryfor alternative testing options.For additional information, please refer [email or web address](This link if provided for information/educational purposes only.)THIS TEST WAS PERFORMED AT:[employer] [place] [id number] ROBLEDO MD HPV mRNA E6/E7 [facility] HPV 16 RNA [facility] HPV 18/45 RNA [facility] 06/11/2022 11:5 2 AM EST 06/11/2022 12:00 PM EST [facility] External Provider LAB CYT OLOGY ORDERABLES Final Result [facility] [address] [place] [phone] * Pap Smear (06/11/2022 11:52 AM EST) 06/11/2022 11:5 2 AM EST 06/11/2022 12:00 PM EST Kisha [facility] - 06/17/2022 3:42 PM EST ----- ------- Name: Irene Rodriguez Age/Sex: 52/F : 1970 [id number]#: [id number] Attend Dr: Juan Bland MD Re06/11/22 Status: [facility] REF Location: [facility] Disch: ----- ------- SPEC : [id number] RECD: 06/11/22-1200 STATUS: VALARIE RIVAS NUM: [id number] CHLOE: 06/11/22-1152 [facility] DR: Juan Bland MD ENTERED: 06/12/22-5075 SP TYPE: Pap Smr [facility] DR: Chrissie Khan MD ORDERED: Pap Smear Interpretation Satisfactory for evaluation. Negative for intraepithelial lesion or malignancy. HPV mRNA E6/E7: NOT DETECTED This assay detects E6/E7 viral messenger RNA (mRNA) from 14 high-risk HPV types (16, 18, 31, 33, 35, 39, 45, 51, 52, 56, 58, 59, 66, 68) HPV testing performed by [employer], [place], [place]. See reference laboratory portion of the EMR for entire report. Clinical Information LMP: 05/17/2022 Previous PAP test: Unknown Material Received ThinPrep-Cervical Copies To: Chrissie Khan MD [address] [place] [address] Juan Bland MD [address] [place] [address] Dr. [place] [address] [place] [phone] ----- ------- Signed (signature on file) Cheyanne Smith Shabnam 06/17/22 1542 ----- ------- END OF REPORT [facility] External Provider LAB [facility] ORDERABLES Final Result [facility] [address] [place] [address] [phone] * HIV 1/2 ANTIGEN AND ANTIBODY (EXTERNAL RESULTS ONLY) (05/01/2013 8:50 AM EST) HIV Ag/Ab Nonreactive 05/01/2013 8:50 AM EST Vivek Zimmerman ELDER ASSISTANT LAB POINT OF CARE TE ST DOCKED DEVICE UNSOLICITED RESULTS Final Result * Hepatitis C Antibody with Reflex to HCV, RNA, Quantitative, Real-Time PCR (05/01/2013 8:50 AM EST) Blood Venous blood specimen / Unknown 05/01/2013 8:50 AM EST Vivek Zimmerman ELDER ASSISTANT LAB BLOOD ORDERABLES Final R esult from Last 3 Months or Most Recently Relevant to Health Maintenance Insurance [facility] C3 Care Teams Reed Polisher Relationship Specialty Start Date End Date Chrissie Khan MD [address] [place] [phone] PCP - General Internal Medicine 03/23/22
--- OUTSIDE RECORDS SUMMARY | 2025-01-11 18:04 | XMS_ITS | Encounter Summary ---
Author Organization [employer] Address [address] [facility] 7t [place] [address] Care Team Providers Care Experimental Psychologist Name Role Phone Chrissie Khan MD Primary Care Provider + Reason for Visit * Reason Comments Med Refill Encounter Details Date Type Department Care Team (Late st Contact Info) Description 01/22/2023 Refill [facility] [address] [place] [address] Chrissie Khan MD [address] [place] [address] Acute back pain with sciatica, unspecified laterality [...] documented as of this encounter Care Teams Experimental Psychologist Relationship Specialty Start Date End Date Chrissie Khan MD [address] [place] [phone] PCP - General Internal Medicine 03/23/22 documented as of this encounter
--- OUTSIDE RECORDS SUMMARY | 2025-01-11 18:04 | XMS_ITS | Encounter Summary ---
Author Organization [employer] Address [address] [facility] 7t [place] [address] Care Team Providers Care Warehouse Specialist Name Role Phone Chrissie Khan MD Primary Care Provider + Reason for Visit * Reason Onset Date Comments Med Refill 01/16/2023 Encounter Details Date Type Department Care Team (Late st Contact Info) Description 01/16/2023 Refill [facility] [address] [place], [place] [phone] Chrissie Khan MD [address] [place] [address] Chronic low back pain, unspecified back pain [...] documented as of this encounter Care Teams Warehouse Specialist Relationship Specialty Start Date End Date Chrissie Khan MD [address] [place] [address] PCP - General Internal Medicine 03/23/22 documented as of this encounter
--- OUTSIDE RECORDS SUMMARY | 2025-01-11 18:04 | XMS_ITS | Encounter Summary ---
Author Organization [employer] Address [address] [facility] [address]t [place] [address] Care Team Providers Care Inbound Ingredient Logistics Specialist Name Role Phone Chrissie Khan MD Primary Care Provider + Encounter Details Date Type Department Care Team (Late st Contact Info) Description 08/02/2022 Abstract [facility] [address] [place] [address] Chrissie Khan MD [address] [place] [address] Social History Tobacco Use Types Packs/Day Years [...] Nonreactive 05/01/2013 8:50 AM EST Vivek Zimmerman ANNUAL CAMPAIGN MANAGER LAB POINT OF CARE TE ST DOCKED DEVICE UNSOLICITED RESULTS Final Result documented in this encounter Visit Diagnoses Not on filedocumented in this encounter Additional Health Concerns Assessment Noted Time PHQ-9 Depression Total Score: 0 05/03/19 23 8:59 AM EST documented as of this encounter Care Teams Inbound Ingredient Logistics Specialist Relationship Specialty Start Date End Date Chrissie Khan MD [address] [place] [phone] PCP - General Internal Medicine 03/23/22 documented as of this encounter
== END 2025-01-11 16:30 | disposition home or self-care (01) ==
LOC: HO.HWS 15:59
PROVIDERS: PCP Internal Medicine; Visit Provider Obstetrics & Gynecology
DX: D25.9 Leiomyoma of uterus, unspecified (principal)
CPT/HCPCS: 99213

== ENCOUNTER 2025-02-16 14:59 | Outpatient (REF) | payer MEDICAID, SELFPAY ==
[2025-02-18 20:08] LABS: TS Negative Control Passed; TS Panel A 0; TS Panel B 1; TS Positive Control Passed; TSpotTB Negative (Negative)
== END 2025-02-16 15:00 | disposition home or self-care (01) ==
LOC: HO.HHCL 14:59
PROVIDERS: PCP Internal Medicine; Visit Provider Internal Medicine
DX: Z11.1 Encounter for screening for respiratory tuberculosis (principal)
CPT/HCPCS: 36415; 86481